=== PATIENT | male | born 1965 | race American Indian/Alaskan Native ===

== ENCOUNTER 2016-06-08 01:30 | Inpatient (IN) | payer MEDICARE ==
[2016-06-08] MEDS ORDERED: ZEMURON IV ONE ×2 (01:40→02:00)
[2016-06-08] MEDS ORDERED: KETALAR IV ONE (01:40)
[2016-06-08] MEDS ORDERED: ARTIFICIAL TEARS OPHTH OINT OU PRN (01:51)
[2016-06-08] MEDS ORDERED: VASELINE LIP THERAPY TP PRN (01:51)
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
[2016-06-08] MEDS ORDERED: KETALAR ONE (02:00)
[2016-06-08] MEDS ORDERED: APRESOLINE ONE (02:07)
[2016-06-08 02:09] LABS: Basophils % (Auto) 1.1 % (0.0-1.8); Eosinophils % (Auto) 1.4 % (0.0-4.3); Hematocrit 34.2 % (35.5-45.6); Mean Corpuscular HGB Conc 32 % (32-34); Mean Corpuscular Hemoglobin 29 pg (28-32); Mean Corpuscular Volume 91 fl (84-94); Platelet Count 174 K/mm3 (140-440); Red Blood Count 3.77 M/mm3 (3.65-5.03); White Blood Count 6.1 K/mm3 (4.5-11.0)
[2016-06-08] MEDS ORDERED: APRESOLINE IV ONE (02:16)
[2016-06-08 02:21] LABS: INR 1.1 (0.87-1.13); Partial Thromboplastin Time 25.6 Sec. (24.2-36.6)
[2016-06-08] MEDS ORDERED: NACL 0.9% 1000 ML 1,000 ML ONE (02:23)
[2016-06-08 02:31] LABS: Creatine Kinase MB 2.1 ng/mL (0.0-4.0)
[2016-06-08 02:33] LABS: Albumin 4.1 g/dL (3.9-5); Albumin/Globulin Ratio 1.1 %; BUN/Creatinine Ratio 4.95; Bilirubin,Total 0.4 mg/dL (0.1-1.2); Calcium 9.3 mg/dL (8.4-10.2); Chloride 99.2 mmol/L (98-107)
[2016-06-08 02:34] LABS: ISTAT Base Excess -3; ISTAT HCO3 26.4; ISTAT PCO2 78.8 (35-45); ISTAT PH 7.133 (7.35-7.45); ISTAT PO2 219 (80-105); ISTAT SO2 99; ISTAT TCO2 29
[2016-06-08] MEDS: DIPRIVAN 10 MG/ML 1,000 MG/100 ML BOTTLE IV SCH ×4 (02:35→15:12)
[2016-06-08 02:59] LABS: Potassium 5.1 mmol/L (3.6-5.0)
[2016-06-08] MEDS ORDERED: NACL 0.9% 1000 ML 1,000 ML IV ONE (02:59)
[2016-06-08] MEDS ORDERED: CARDENE DRIP 40 MG/200 ML 40 MG/200 ML BAG IV SCH (03:00)
--- NOTE | 2016-06-08 03:16 | XRay Report ---
FINAL REPORT PROCEDURE: XR CHEST 1V AP PORTABLE TECHNIQUE: Chest radiograph anteroposterior portable view. CPT 49286 HISTORY: ETT placement COMPARISON: No prior studies are available for comparison. FINDINGS: Heart: Mild enlargement although there is some magnification from portable technique. Mediastinum/Vessels: Slightly prominent sherry bilaterally are similar prior exam and may be due to prominent pulmonary arteries. Lungs/Pleural space: Moderate central venous congestion and probable diffuse moderate interstitial and airspace pulmonary edema suggesting fluid overload and or CHF. This is mostly new since prior exam. However asymmetric increased density in right lower lobe could be asymmetric airspace edema versus superimposed moderate right lower lobe infiltrate. This was present previously but has increased. Patchy density in left mid and lower lung may be asymmetric edema versus superimposed infiltrate and possible left pleural effusion. Changes in the left lung base were seen here on the prior exam as well. Bony thorax: No acute osseous abnormality. Life support devices: ET tube tip is about 4 centimeters above tracheal bifurcation. The distal aspect of the NG tube projects beyond GE junction below level of film. IMPRESSION: 1. ET tube tip is about 4 centimeters above tracheal bifurcation. 2. Probable moderate pulmonary edema, new from prior exam. 3. Asymmetric edema versus superimposed infiltrate in right lower lobe increased from prior exam. 4. Asymmetric edema versus patchy infiltrate in left mid and lower lung also increased from prior exam. Probable left pleural effusion noted. This may have been present previously as well.
[2016-06-08] MEDS ORDERED: VANCOMYCIN/NS 1 GM/250 ML 1 GM/250 ML BAG IV ONE (03:20)
--- NOTE | 2016-06-08 04:12 | History and Physical Report ---
History of Present Illness Date of examination: 06/08/16 History of present illness: 50-year-old man with a history of hypertension, end-stage renal disease on dialysis Monday, Monday, Monday comes emergency room with complaints of shortness of breath that started this morning. The patient was fouind to be in respiratory distress and intubated in the emergency room. Review of systems unobtainable. She was started on a Cardene drip for blood pressure uncontrolled PAST SURGICAL HISTORY: AV fistula, bowel surgery SOCIAL HISTORY: Denies alcohol, tobacco, drugs FAMILY HISTORY: Hypertension Medications and Allergies Allergies Allergy/AdvReac Type Severity Reaction Status Date / Time lisinopril Allergy Angioedema Verified 07/28/15 15:30 Home Medications Medication Instructions Recorded Confirmed Last Taken Type Cinacalcet [Sensipar] 30 mg PO QDAY 11/06/15 06/08/16 02/23/16 History Sevelamer Carbonate [Renvela] 800 mg PO AC 11/06/15 06/08/16 02/23/16 History Vit B Cplx #11/FA/C/Biot/Zn Ox 800 each PO DAILY 12/11/15 06/08/16 02/23/16 History [Dialyvite with Zinc Tablet] hydrALAZINE [Apresoline TAB] 100 mg PO TID #90 tab 12/17/15 06/08/16 02/23/16 Rx Aspirin [Aspirin BABY CHEW TAB] 81 mg PO QDAY #30 tab.chew 06/14/16 Unknown Rx Carvedilol [Coreg] 25 mg PO BID #60 tablet 06/14/16 Unknown Rx Doxazosin [Cardura] 4 mg PO BID #60 tablet 06/14/16 Unknown Rx NIFEdipine XL [Procardia Xl] 90 mg PO BID #60 tablet 06/14/16 Unknown Rx Valsartan [Diovan] 160 mg PO BID #60 tablet 06/14/16 Unknown Rx cloNIDine [Catapres] 0.1 mg PO Q8H #30 tablet 06/14/16 Unknown Rx Active Meds: Active Medications Hydrophilic Ointment (Vaseline Lip Therapy) 1 applic TP Q2HR PRN PRN Reason: Dry Lips Propofol (Diprivan 10 Mg/Ml) 1,000 mg in 100 mls @ 2.381 mls/hr IV TITR TREVER; 5 MCG/KG/MIN PRN Reason: Protocol Last Titration: 06/08/16 03:50 Dose: 25 mcg/kg/min, 11.907 mls/hr Nicardipine/Sodium Chloride (Cardene Drip 40 Mg/200 Ml) 40 mg in 200 mls @ 25 mls/hr IV TITR TREVER; 5 MG/HR PRN Reason: Protocol Last Titration: 06/08/16 03:43 Dose: 0 mg/hr, 0 mls/hr Sodium Chloride (Nacl 0.9% 1000 Ml) 1,000 mls @ 30 mls/hr IV BOLUS ONE Stop: 06/09/16 12:18 Last Admin: 06/08/16 03:00 Dose: 30 mls/hr Vancomycin HCl (Vancomycin/Ns 1 Gm/250 Ml) 1 gm in 250 mls @ 167.007 mls/hr IV ONCE ONE PRN Reason: Protocol Stop: 06/08/16 04:49 Last Admin: 06/08/16 03:35 Dose: 167.007 mls/hr Piperacillin Sod/Tazobactam Sod (Zosyn/Ns 3.375gm/50ml) 3.375 gm in 50 mls @ 100 mls/hr IV Q6HR TREVER Multi-Ingred Cream/Lotion/Oil/Oint (Artificial Tears Ophth Oint) 1 applic OU Q4HR PRN PRN Reason: Dry Eye(s) Exam - Physical Exam Narrative exam: Gen. appearance: Patient lying in bed, intubated and sedated HEENT: Normocephalic, atraumatic, pupils equally round and reactive to light, and able to do extraocular movement , and no sclericterus,. No JVD or thyromegaly or nodule,neck supple, no carotid bruit ,mucous membranes moist, no exudate or erythema Heart: S1, S2, regular rate and rhythm Lungs: Decreased breath sounds at bases bilaterally, breathing comfortable Abdomen: Positive bowel sounds, soft, nondistended, no organomegaly Extremity: No edema, cyanosis, clubbing Skin: No rash, nodules, warm, dry Neuro: Oriented 3, cranial nerves II-12 intact, speech is fluent, motor and sensory intact - Constitutional Vitals: Temp Pulse Resp BP Pulse Ox 63 22 94/45 95 06/08/16 04:00 06/08/16 04:00 06/08/16 04:00 06/08/16 04:00 Results - Labs CBC & Chem 7: 06/11/16 04:16 06/11/16 04:16 Labs: Abnormal lab results 06/08/16 06/08/16 06/08/16 Range/Units 02:01 02:01 02:01 Hgb 11.0 L (11.8-15.2) gm/dl Hct 34.2 L (35.5-45.6) % Lymph % (Auto) 39.3 H (13.4-35.0) % POC ABG pH (7.35-7.45) POC ABG pCO2 (35-45) POC ABG pO2 (80-105) Sodium 148 H (137-145) mmol/L Potassium 5.1 H (3.6-5.0) mmol/L Carbon Dioxide 21 L (22-30) mmol/L BUN 60 H (9-20) mg/dL Creatinine 12.1 H (0.8-1.5) mg/dL Lactic Acid 10.2 H* (0.7-2.0) mmol/L Total Creatine Kinase 518 H (55-170) units/L Troponin T 0.091 H (0.00-0.029) ng/mL NT-Pro-B Natriuret Pep (0-450) pg/mL 06/08/16 06/08/16 Range/Units 02:01 02:22 Hgb (11.8-15.2) gm/dl Hct (35.5-45.6) % Lymph % (Auto) (13.4-35.0) % POC ABG pH 7.133 L (7.35-7.45) POC ABG pCO2 78.8 H (35-45) POC ABG pO2 219 H (80-105) Sodium (137-145) mmol/L Potassium (3.6-5.0) mmol/L Carbon Dioxide (22-30) mmol/L BUN (9-20) mg/dL Creatinine (0.8-1.5) mg/dL Lactic Acid (0.7-2.0) mmol/L Total Creatine Kinase (55-170) units/L Troponin T (0.00-0.029) ng/mL NT-Pro-B Natriuret Pep 47157 H (0-450) pg/mL - Imaging and Cardiology EKG: image reviewed Chest x-ray: image reviewed Assessment and Plan Acute respiratory failure Fluid overload pneumonia Hypertension Abnormal cardiac enzymes End-stage renal disease on dialysis Admit to medicine Start IV Levaquin, Zosyn, first dose now, consult renal for dialysis Check cardiac enzymes, consult critical care, continue sedation with propofol Discontinue Cardene drip, systolic blood pressure now in the 90s Continue appropriate outpatient medication, start DVT prophylaxis with SCD
[2016-06-08] MEDS ORDERED: TYLENOL PO PRN (04:17)
[2016-06-08] MEDS ORDERED: ZOFRAN IV PRN (04:17)
[2016-06-08] MEDS ORDERED: DULCOLAX PR PRN (04:17)
[2016-06-08] MEDS ORDERED: ALUM-MAG HYDROX-SIMETH 200-200-20MG/5ML PO PRN (04:17)
[2016-06-08] MEDS ORDERED: LOVENOX SUB-Q ONE (04:20)
[2016-06-08] MEDS ORDERED: LEVAQUIN 750MG/150ML 750 MG/150 ML BAG IV ONE (04:30)
[2016-06-08 05:31] LABS: Creatine Kinase MB 2.8 ng/mL (0.0-4.0)
[2016-06-08] MEDS ORDERED: ZOSYN/NS 3.375GM/50ML 3.375 GM/50 ML BAG IV SCH ×2 (06:00)
[2016-06-08] MEDS ORDERED: ZOSYN/NS 2.25 GM/50ML 2.25 GM/50 ML BAG IV SCH (06:00)
[2016-06-08] MEDS ORDERED: SUBLIMAZE ONE (06:07)
[2016-06-08] MEDS ORDERED: SUBLIMAZE IV ONE (06:10)
--- NOTE | 2016-06-08 06:31 | Admit Criteria Form ---
Admission Criteria Documentation: RENAL FAILURE, CHRONIC Clinical Indications for Admission to Inpatient Care (Place 'X' for any and all applicable criteria): Admission is indicated for ANY ONE of the following (1)(2)(3)(4)(5): [ x]I. Inpatient admission required rather than observation care (Use Renal Failure, Chronic: Observation Care Criteria as appropriate) because of ANY ONE of the following: [x ]a) Volume overload or uremic symptoms (eg, clinically significant pulmonary edema, hypertension, pericarditis, acidosis) too severe for, or not responsive (eg, for over 24 hours) to emergency department or observation care dialysis or treatment regimen (11) [ ]b) Hemodynamic instability that is severe or persistent [ ]c) Respiratory distress that is severe or persistent (11) [ ]d) Clinically significant electrolyte abnormality that requires inpatient care (eg,hyperkalemia with severe ECG findings)[B] [ ]e) Supplement O2 or respiratory therapy for over 24hrs that is performable only in acute inpatient setting [ ]f) Continuous IV infusion of anticoagulation, platelet inhibitor, vasoactive, or Antiarrhythmic medication (15), [ ]g) Pulmonary artery catheter monitoring [ ]h) Temporary pacemaker placement [ ]i) Emergent pericardiocentesis [ x]j) Other condition, treatment or monitoring requiring inpatient admission [ ]II. Unexplained syncope [A] [ ]III. Recurrent seizures [ ]IV. Severe infections not treatable in outpatient setting (eg, peritonitis)(9 ) [ ]V. Cardiac arrhythmias of immediate concern [ ]. Encephalopathy [ ]VII.Bleeding abnormalities (eg, platelet dysfunction) with active (eg, gastrointestinal) bleeding Extended stay beyond goal length of stay may be needed for (3)(4)(35)(36): [ ]a) Continuing uremic complications [ ]b) Comorbidities or complications The original [employer] content created by [employer] has been revised. The portions of the content which have been revised are identified through the use of italic text or in bold, and [employer] has neither reviewed nor approved the modified material. All other unmodified content is copyright [employer]. Please see references footnoted in the original [employer] edition 2016 Admission Criteria Met: Yes
[2016-06-08 06:57] LABS: ISTAT Base Excess 1; ISTAT HCO3 26.1; ISTAT PCO2 45.4 (35-45); ISTAT PH 7.368 (7.35-7.45); ISTAT PO2 55 (80-105); ISTAT SO2 87; ISTAT TCO2 27
[2016-06-08 09:18] LABS: ISTAT Base Excess 0; ISTAT HCO3 26.2; ISTAT PCO2 48.4 (35-45); ISTAT PH 7.342 (7.35-7.45); ISTAT PO2 69 (80-105); ISTAT SO2 92; ISTAT TCO2 28
[2016-06-08] MEDS: PEPCID IV SCH (09:50)
[2016-06-08] MEDS: LOVENOX SUB-Q SCH (09:50)
[2016-06-08 10:51] LABS: Creatine Kinase MB 4.8 ng/mL (0.0-4.0)
--- NOTE | 2016-06-08 11:41 | Progress Note ---
Assessment and Plan Assessment and plan: --Acute hypoxic respiratory failure Secondary to fluid overload, continue ventilatory support Hemo-dialysis, nebulizers as needed --Left-sided pneumonia on chest x-ray Empiric antibiotics, follow cultures, supportive care --End-stage renal disease on hemodialysis Nephrology following,HD per schedule --Non-ST elevation PA/positive troponins could be nonspecific secondary end- stage renal disease However NSTEMI need to be ruled out Serial cardiac enzymes, add aspirin, cardiology evaluation, echocardiogram for left ventricular function ejection fraction --Lactic acidosis, secondary to sepsis Lactic acid levels trending down, continue antibiotics follow cultures --Malignant hypertension ; at the time of admission Now well-controlled, continue current antihypertensive medications --DVT prophylaxis With heparin We'll closely monitor the patient and adjust the management as needed Plan of care discussed with the patient's nurse, medical records reviewed Critical care time 31 minutes The high probability of a clinically significant, sudden or life threatening deterioration of the [respiratory, renal and cardiovascular] system(s) required my full and direct attention, intervention and personal management. The aggregate critical care time was [31] minutes. This time is in addition to time spent performing reported procedures but includes the following: [x] Data Review and interpretation [x] Patient assessment and monitoring of vital signs [x] Documentation [x] Medication orders and management History Interval history: Patient seen and evaluated in the ICU this morning medical records reviewed Patient was admitted early this morning with acute respiratory failure, intubated on ventilator support Patient intubated and sedated noncommunicative No new events reported by the nursing staff Hospitalist Physical - Constitutional Vitals: Temp Pulse Resp BP Pulse Ox 97.4 F L 65 28 H 131/74 96 06/08/16 08:00 06/08/16 08:51 06/08/16 08:50 06/08/16 08:51 06/08/16 08:51 General appearance: Present: no acute distress, well-nourished, other ( intubated and sedated) - EENT Eyes: Present: PERRL, EOM intact - Neck Neck: Present: supple, normal ROM - Respiratory Respiratory effort: normal Respiratory: bilateral: diminished, rales, negative: rhonchi - Cardiovascular Rhythm: regular Heart Sounds: Present: S1 & S2 - Extremities Extremities: no ischemia, pulses intact, pulses symmetrical Peripheral Pulses: within normal limits - Abdominal General gastrointestinal: soft, non-tender, non-distended, normal bowel sounds - Integumentary Integumentary: Present: clear, warm - Psychiatric Psychiatric: other (intubated and sedated) - Neurologic Neurologic: other (intubated and sedated) Results - Labs CBC & Chem 7: 06/09/16 04:00 06/09/16 04:00 Labs: Laboratory Last Values WBC 6.1 K/mm3 (4.5-11.0) 06/08/16 02:01 RBC 3.77 M/mm3 (3.65-5.03) 06/08/16 02:01 Hgb 11.0 gm/dl (11.8-15.2) L 06/08/16 02:01 Hct 34.2 % (35.5-45.6) L 06/08/16 02:01 MCV 91 fl (84-94) 06/08/16 02:01 MCH 29 pg (28-32) 06/08/16 02:01 MCHC 32 % (32-34) 06/08/16 02:01 RDW 15.0 % (13.2-15.2) 06/08/16 02:01 Plt Count 174 K/mm3 (140-440) 06/08/16 02:01 Lymph % (Auto) 39.3 % (13.4-35.0) H 06/08/16 02:01 [place] % (Auto) 7.3 % (0.0-7.3) 06/08/16 02:01 Eos % (Auto) 1.4 % (0.0-4.3) 06/08/16 02:01 Baso % (Auto) 1.1 % (0.0-1.8) 06/08/16 02:01 Lymph # 2.4 K/mm3 (1.2-5.4) 06/08/16 02:01 [place] # 0.4 K/mm3 (0.0-0.8) 06/08/16 02:01 Eos # 0.1 K/mm3 (0.0-0.4) 06/08/16 02:01 Baso # 0.1 K/mm3 (0.0-0.1) 06/08/16 02:01 Seg Neutrophils % 50.9 % (40.0-70.0) 06/08/16 02:01 Seg Neutrophils # 3.1 K/mm3 (1.8-7.7) 06/08/16 02:01 PT 14.1 Sec. (12.2-14.9) 06/08/16 02:01 INR 1.10 (0.87-1.13) 06/08/16 02:01 APTT 25.6 Sec. (24.2-36.6) 06/08/16 02:01 D-Dimer 1494.82 ng/mlDDU (0-234) H 06/08/16 04:35 POC ABG pH 7.342 (7.35-7.45) L 06/08/16 08:51 POC ABG pCO2 48.4 (35-45) H 06/08/16 08:51 POC ABG pO2 69 (80-105) L 06/08/16 08:51 POC ABG HCO3 26.2 06/08/16 08:51 POC ABG Total CO2 28 06/08/16 08:51 POC ABG O2 Sat 92 06/08/16 08:51 POC ABG Base Excess 0 06/08/16 08:51 FiO2 60 % 06/08/16 08:51 Sodium 148 mmol/L (137-145) H 06/08/16 02:01 Potassium 5.1 mmol/L (3.6-5.0) H 06/08/16 02:01 Chloride 99.2 mmol/L (98-107) 06/08/16 02:01 Carbon Dioxide 21 mmol/L (22-30) L 06/08/16 02:01 Anion Gap 33 mmol/L 06/08/16 02:01 BUN 60 mg/dL (9-20) H 06/08/16 02:01 Creatinine 12.1 mg/dL (0.8-1.5) H 06/08/16 02:01 Estimated GFR 5 ml/min 06/08/16 02:01 BUN/Creatinine Ratio 4.95 % 06/08/16 02:01 Glucose 94 mg/dL (75-100) 06/08/16 02:01 Lactic Acid 0.6 mmol/L (0.7-2.0) L 06/08/16 05:45 Calcium 9.3 mg/dL (8.4-10.2) 06/08/16 02:01 Total Bilirubin 0.4 mg/dL (0.1-1.2) 06/08/16 02:01 AST 25 units/L (5-40) 06/08/16 02:01 ALT 18 units/L (7-56) 06/08/16 02:01 Alkaline Phosphatase 61 units/L (35-129) 06/08/16 02:01 Total Creatine Kinase 418 units/L (55-170) H 06/08/16 10:22 CK-MB (CK-2) 4.8 ng/mL (0.0-4.0) H 06/08/16 10:22 CK-MB (CK-2) Rel Index 1.1 (0-4) 06/08/16 10:22 Troponin T 0.143 ng/mL (0.00-0.029) H* D 06/08/16 10:22 NT-Pro-B Natriuret Pep 91005 pg/mL (0-450) H 06/08/16 02:01 Total Protein 8.0 g/dL (6.3-8.2) 06/08/16 02:01 Albumin 4.1 g/dL (3.9-5) 06/08/16 02:01 Albumin/Globulin Ratio 1.1 % 06/08/16 02:01 Triglycerides 45 mg/dL (2-149) 06/08/16 04:35 Cholesterol 148 mg/dL (50-199) 06/08/16 04:35 LDL Cholesterol Direct 49 mg/dL (50-130) L 06/08/16 04:35 HDL Cholesterol 90 mg/dL (40-59) H 06/08/16 04:35 Cholesterol/HDL Ratio 1.64 % 06/08/16 04:35
--- NOTE | 2016-06-08 11:59 | Consultation ---
History of Present Illness Consult date: 06/08/16 Consult reason: elevated troponin History of present illness: he patient is a 49-year-old man who has end-stage renal disease on hemodialysis. He also has chronic severe hypertension. A recent thallium stress test was negative. A recent echocardiogram demonstrated normal left ventricular systolic function with ejection fraction 55%, with at least moderate concentric left ventricular hypertrophy was noted. He presents at this time with shortness of breath thought secondary to pulmonary edema and possible infiltrates. He suffered respiratory failure in the emergency room, requiring intubation. Cardiac consultation requested for chronic elevated troponin likely secondary to renal disease. Creatinine of 12.1. He has a normal CK/MB and normal relative index. He has a creatine kinase of 518 consistent with rhabdomyolysis. His EKG shows a normal sinus rhythm with left ventricular hypertrophy and repolarization abnormalities of LVH. Medications and Allergies Allergies Allergy/AdvReac Type Severity Reaction Status Date / Time lisinopril Allergy Angioedema Verified 07/28/15 15:30 Home Medications Medication Instructions Recorded Confirmed Last Taken Type Cinacalcet [Sensipar] 30 mg PO QDAY 11/06/15 02/24/16 02/23/16 History Sevelamer Carbonate [Renvela] 800 mg PO AC 11/06/15 02/24/16 02/23/16 History Vit B Cplx #11/FA/C/Biot/Zn Ox 800 each PO DAILY 12/11/15 02/24/16 02/23/16 History [Dialyvite with Zinc Tablet] Carvedilol [Coreg] 25 mg PO BID #60 tablet 12/17/15 02/24/16 02/23/16 Rx hydrALAZINE [Apresoline TAB] 100 mg PO TID #90 tab 12/17/15 02/24/16 02/23/16 Rx NIFEdipine XL [Procardia Xl] 90 mg PO QDAY #30 tablet 02/25/16 Unknown Rx Active Meds: Active Medications Acetaminophen (Tylenol) 650 mg PO Q6H PRN PRN Reason: Pain Al Hydrox/Mg Hydrox/Simethicone (Alum-Mag Hydrox-Simeth [phone]/5ml) 30 ml PO Q4H PRN PRN Reason: Indigestion Aspirin (Baby Aspirin) 81 mg PO QDAY [facility] Bisacodyl (Dulcolax) 10 mg [place] QDAY PRN PRN Reason: constipation unrelieved by MOM Enoxaparin Sodium (Lovenox) 30 mg SUB-Q DAILY [facility] Last Admin: 06/08/16 09:50 Dose: 30 mg Famotidine (Pepcid) 20 mg IV DAILY [facility] Last Admin: 06/08/16 09:50 Dose: 20 mg Hydrophilic Ointment (Vaseline Lip Therapy) 1 applic TP Q2HR PRN PRN Reason: Dry Lips Propofol (Diprivan 10 Mg/Ml) 1,000 mg in 100 mls @ 2.381 mls/hr IV TITR TREVER; 5 MCG/KG/MIN PRN Reason: Protocol Last Admin: 06/08/16 07:30 Dose: 40 mcg/kg/min, 19.051 mls/hr Sodium Chloride (Nacl 0.9% 1000 Ml) 1,000 mls @ 30 mls/hr IV BOLUS ONE Stop: 06/09/16 12:18 Last Admin: 06/08/16 03:00 Dose: 30 mls/hr Levofloxacin/Dextrose (Levaquin 500mg/100ml) 500 mg in 100 mls @ 100 mls/hr IV Q48H [facility] Piperacillin Sod/Tazobactam Sod (Zosyn/Ns 2.25 Gm/50ml) 2.25 gm in 50 mls @ 100 mls/hr IV Q8HR [facility] Last Admin: 06/08/16 06:18 Dose: 100 mls/hr Multi-Ingred Cream/Lotion/Oil/Oint (Artificial Tears Ophth Oint) 1 applic OU Q4HR PRN PRN Reason: Dry Eye(s) Ondansetron HCl (Zofran) 4 mg IV Q8H PRN PRN Reason: N/V unrelieved by Reglan Physical Examination Vital Signs Resp 30 H 06/08/16 01:35 General appearance: other (intubated on the vent) Cardiac: Positive: Reg Rate and Rhythm Results 06/08/16 02:01 06/08/16 02:01 Cardiac Enzymes 06/08/16 06/08/16 06/08/16 Range/Units 04:35 04:35 05:45 D-Dimer 1494.82 H (0-234) ng/mlDDU POC ABG pH (7.35-7.45) POC ABG pCO2 (35-45) POC ABG pO2 (80-105) POC ABG HCO3 POC ABG Total CO2 POC ABG O2 Sat POC ABG Base Excess FiO2 % Lactic Acid 0.6 L (0.7-2.0) mmol/L Total Creatine Kinase 419 H (55-170) units/L CK-MB (CK-2) 2.8 (0.0-4.0) ng/mL CK-MB (CK-2) Rel Index 0.6 (0-4) Troponin T 0.118 H* D (0.00-0.029) ng/mL Triglycerides 45 (2-149) mg/dL Cholesterol 148 (50-199) mg/dL LDL Cholesterol Direct 49 L (50-130) mg/dL HDL Cholesterol 90 H (40-59) mg/dL Cholesterol/HDL Ratio 1.64 % 06/08/16 06/08/16 06/08/16 Range/Units 06:20 07:41 08:51 D-Dimer (0-234) ng/mlDDU POC ABG pH 7.368 7.342 L (7.35-7.45) POC ABG pCO2 45.4 H 48.4 H (35-45) POC ABG pO2 55 L 69 L (80-105) POC ABG HCO3 26.1 26.2 POC ABG Total CO2 27 28 POC ABG O2 Sat 87 92 POC ABG Base Excess 1 0 FiO2 60 60 % Lactic Acid (0.7-2.0) mmol/L Total Creatine Kinase (55-170) units/L CK-MB (CK-2) (0.0-4.0) ng/mL CK-MB (CK-2) Rel Index (0-4) Troponin T 0.118 H* (0.00-0.029) ng/mL Triglycerides (2-149) mg/dL Cholesterol (50-199) mg/dL LDL Cholesterol Direct (50-130) mg/dL HDL Cholesterol (40-59) mg/dL Cholesterol/HDL Ratio % 06/08/16 Range/Units 10:22 D-Dimer (0-234) ng/mlDDU POC ABG pH (7.35-7.45) POC ABG pCO2 (35-45) POC ABG pO2 (80-105) POC ABG HCO3 POC ABG Total CO2 POC ABG O2 Sat POC ABG Base Excess FiO2 % Lactic Acid (0.7-2.0) mmol/L Total Creatine Kinase 418 H (55-170) units/L CK-MB (CK-2) 4.8 H (0.0-4.0) ng/mL CK-MB (CK-2) Rel Index 1.1 (0-4) Troponin T 0.143 H* D (0.00-0.029) ng/mL Triglycerides (2-149) mg/dL Cholesterol (50-199) mg/dL LDL Cholesterol Direct (50-130) mg/dL HDL Cholesterol (40-59) mg/dL Cholesterol/HDL Ratio % Lipids 06/08/16 Range/Units 04:35 Triglycerides 45 (2-149) mg/dL Cholesterol 148 (50-199) mg/dL HDL Cholesterol 90 H (40-59) mg/dL Cholesterol/HDL Ratio 1.64 % Assessment and Plan Acute respiratory failure secondary to volume overload and pulmonary edema currently intubated ESRD on dialysis Chronic elevated troponin secondary to renal disease Hypertension Thallium stress test 10/2015 was negative. Echocardiogram 02/2016 demonstrated normal left ventricular systolic function with ejection fraction 55%, at least moderate concentric left ventricular hypertrophy was noted.
--- NOTE | 2016-06-08 12:07 | Consultation ---
History of Present Illness - Reason for Consult Consult date: 06/08/16 end stage renal disease, hyperkalemia - History of Present Illness Patient is a 50-year-old AAM with history significant for Hypertension, ESRD on hemodialysis (MWF) presented to the emergency room with one day h/o shortness of breath. Unable to obtain any history from patient and no family members at the bedside. The patient was in respiratory distress and intubated in the emergency room. He was started on Cardene drip for uncontrolled blood pressure. Past History Past Medical History: dialysis, ESRD, hypertension Medications and Allergies Allergies Allergy/AdvReac Type Severity Reaction Status Date / Time lisinopril Allergy Angioedema Verified 07/28/15 15:30 Home Medications Medication Instructions Recorded Confirmed Last Taken Type Cinacalcet [Sensipar] 30 mg PO QDAY 11/06/15 06/08/16 02/23/16 History Sevelamer Carbonate [Renvela] 800 mg PO AC 11/06/15 06/08/16 02/23/16 History Vit B Cplx #11/FA/C/Biot/Zn Ox 800 each PO DAILY 12/11/15 06/08/16 02/23/16 History [Dialyvite with Zinc Tablet] Carvedilol [Coreg] 25 mg PO BID #60 tablet 12/17/15 06/08/16 02/23/16 Rx hydrALAZINE [Apresoline TAB] 100 mg PO TID #90 tab 12/17/15 06/08/16 02/23/16 Rx NIFEdipine XL [Procardia Xl] 90 mg PO QDAY #30 tablet 02/25/16 06/08/16 Unknown Rx Active Meds: Active Medications Acetaminophen (Tylenol) 650 mg PO Q6H PRN PRN Reason: Pain Al Hydrox/Mg Hydrox/Simethicone (Alum-Mag Hydrox-Simeth [phone]/5ml) 30 ml PO Q4H PRN PRN Reason: Indigestion Aspirin (Baby Aspirin) 81 mg PO QDAY [facility] Bisacodyl (Dulcolax) 10 mg [place] QDAY PRN PRN Reason: constipation unrelieved by MOM Enoxaparin Sodium (Lovenox) 30 mg SUB-Q DAILY [facility] Last Admin: 06/08/16 09:50 Dose: 30 mg Famotidine (Pepcid) 20 mg IV DAILY [facility] Last Admin: 06/08/16 09:50 Dose: 20 mg Hydrophilic Ointment (Vaseline Lip Therapy) 1 applic TP Q2HR PRN PRN Reason: Dry Lips Propofol (Diprivan 10 Mg/Ml) 1,000 mg in 100 mls @ 2.381 mls/hr IV TITR TREVER; 5 MCG/KG/MIN PRN Reason: Protocol Last Admin: 06/08/16 07:30 Dose: 40 mcg/kg/min, 19.051 mls/hr Sodium Chloride (Nacl 0.9% 1000 Ml) 1,000 mls @ 30 mls/hr IV BOLUS ONE Stop: 06/09/16 12:18 Last Admin: 06/08/16 03:00 Dose: 30 mls/hr Levofloxacin/Dextrose (Levaquin 500mg/100ml) 500 mg in 100 mls @ 100 mls/hr IV Q48H [facility] Piperacillin Sod/Tazobactam Sod (Zosyn/Ns 2.25 Gm/50ml) 2.25 gm in 50 mls @ 100 mls/hr IV Q8HR [facility] Last Admin: 06/08/16 06:18 Dose: 100 mls/hr Multi-Ingred Cream/Lotion/Oil/Oint (Artificial Tears Ophth Oint) 1 applic OU Q4HR PRN PRN Reason: Dry Eye(s) Ondansetron HCl (Zofran) 4 mg IV Q8H PRN PRN Reason: N/V unrelieved by Reglan Review of Systems ROS unobtainable: due to mental status Exam - Vital Signs Vital signs: Vital Signs Resp 30 H 06/08/16 01:35 - General Appearance General appearance: well-developed, well-nourished, appears stated age, intubated EENT: PERRL, hearing intact Neck: Present: neck supple, trachea midline Respiratory: Other (coarse breath sounds) Heart: regular, S1S2, no murmurs Gastrointestinal: Present: normoactive bowel sounds. Absent: tenderness, distended Integumentary: no rash Neurologic: other (responds to questions) Musculoskeletal: Present: other (no edema, right FA AVF) Results - Lab Results 06/08/16 02:01 06/08/16 02:01 Most recent lab results Calcium 9.3 mg/dL (8.4-10.2) 06/08/16 02:01 Assessment and Plan - Patient Problems (1) Hyperkalemia Current Visit: Yes Status: Acute Plan to address problem: Hyperkalemia in the setting of ESRD. Hemodialysis today. (2) End stage renal disease on dialysis Current Visit: Yes Status: Chronic Plan to address problem: Hemodialysis planned for today. (3) Pulmonary edema Current Visit: Yes Status: Acute Qualifiers: Chronicity: acute Qualified Code(s): J81.0 - Acute pulmonary edema Plan to address problem: To remove about 4 Lts with hemodialysis as tolerated. (4) Respiratory failure Current Visit: Yes Status: Acute Qualifiers: Chronicity: acute Respiratory failure complication: hypoxia Qualified Code(s): J96.01 - Acute respiratory failure with hypoxia Plan to address problem: On the vent. (5) Hypertension Current Visit: No Status: Chronic Qualifiers: Hypertension type: H Plan to address problem: Monitor BP.
[2016-06-08] MEDS ORDERED: NACL 0.9% 100 ML IV PRN (12:10)
[2016-06-08] MEDS: ATIVAN IV PRN ×2 (13:47→23:37)
--- NOTE | 2016-06-08 14:08 | Consultation ---
History of Present Illness Consult date: 06/08/16 Requesting physician: JOSUE MOCK Reason for consult: hypoxemia History of present illness: 50 y/o male admitted acute hypoxic respiratory failure. Has ESRD and goes to HD on MWF. Currently intubated and sedated. Nephew at bedside. Past History Past Medical History: ESRD, hypertension Past Surgical History: Other (HD access) Social history: other (unable to obtain) Medications and Allergies Allergies Allergy/AdvReac Type Severity Reaction Status Date / Time lisinopril Allergy Angioedema Verified 07/28/15 15:30 Home Medications Medication Instructions Recorded Confirmed Last Taken Type Cinacalcet [Sensipar] 30 mg PO QDAY 11/06/15 02/24/16 02/23/16 History Sevelamer Carbonate [Renvela] 800 mg PO AC 11/06/15 02/24/16 02/23/16 History Vit B Cplx #11/FA/C/Biot/Zn Ox 800 each PO DAILY 12/11/15 02/24/16 02/23/16 History [Dialyvite with Zinc Tablet] Carvedilol [Coreg] 25 mg PO BID #60 tablet 12/17/15 02/24/16 02/23/16 Rx hydrALAZINE [Apresoline TAB] 100 mg PO TID #90 tab 12/17/15 02/24/16 02/23/16 Rx NIFEdipine XL [Procardia Xl] 90 mg PO QDAY #30 tablet 02/25/16 Unknown Rx Active Meds: Active Medications Acetaminophen (Tylenol) 650 mg PO Q6H PRN PRN Reason: Pain Al Hydrox/Mg Hydrox/Simethicone (Alum-Mag Hydrox-Simeth [phone]/5ml) 30 ml PO Q4H PRN PRN Reason: Indigestion Aspirin (Baby Aspirin) 81 mg PO QDAY [facility] Bisacodyl (Dulcolax) 10 mg [place] QDAY PRN PRN Reason: constipation unrelieved by MOM Enoxaparin Sodium (Lovenox) 30 mg SUB-Q DAILY [facility] Last Admin: 06/08/16 09:50 Dose: 30 mg Famotidine (Pepcid) 20 mg IV DAILY [facility] Last Admin: 06/08/16 09:50 Dose: 20 mg Hydrophilic Ointment (Vaseline Lip Therapy) 1 applic TP Q2HR PRN PRN Reason: Dry Lips Propofol (Diprivan 10 Mg/Ml) 1,000 mg in 100 mls @ 2.381 mls/hr IV TITR TREVER; 5 MCG/KG/MIN PRN Reason: Protocol Last Admin: 06/08/16 07:30 Dose: 40 mcg/kg/min, 19.051 mls/hr Sodium Chloride (Nacl 0.9% 1000 Ml) 1,000 mls @ 30 mls/hr IV BOLUS ONE Stop: 06/09/16 12:18 Last Admin: 06/08/16 03:00 Dose: 30 mls/hr Sodium Chloride (Nacl 0.9%) 100 mls @ 999 mls/hr IV XIMENA PRN PRN Reason: Hypotension Lorazepam (Ativan) 2 mg IV Q4H PRN PRN Reason: Agitation Multi-Ingred Cream/Lotion/Oil/Oint (Artificial Tears Ophth Oint) 1 applic OU Q4HR PRN PRN Reason: Dry Eye(s) Ondansetron HCl (Zofran) 4 mg IV Q8H PRN PRN Reason: N/V unrelieved by Reglan Review of Systems ROS unobtainable: due to endotracheal tube, due to mental status Physical Examination Vital signs: Vital Signs Resp 30 H 06/08/16 01:35 General appearance: no acute distress, asleep ENT: other (orally intubated) Neck: supple Ascultation: Bilateral: rales, rhonchi Percussion: Bilateral: not dull Results - Laboratory Findings CBC and BMP: 06/08/16 02:01 06/08/16 02:01 ABG POC ABG pH 7.342 (7.35-7.45) L 06/08/16 08:51 POC ABG pCO2 48.4 (35-45) H 06/08/16 08:51 POC ABG pO2 69 (80-105) L 06/08/16 08:51 POC ABG HCO3 26.2 06/08/16 08:51 POC ABG Total CO2 28 06/08/16 08:51 POC ABG O2 Sat 92 06/08/16 08:51 PT/INR, D-dimer PT 14.1 Sec. (12.2-14.9) 06/08/16 02:01 INR 1.10 (0.87-1.13) 06/08/16 02:01 D-Dimer 1494.82 ng/mlDDU (0-234) H 06/08/16 04:35 Abnormal lab findings: Abnormal Labs 06/08/16 06/08/16 06/08/16 04:35 04:35 05:45 D-Dimer 1494.82 H POC ABG pH POC ABG pCO2 POC ABG pO2 Lactic Acid 0.6 L Total Creatine Kinase 419 H CK-MB (CK-2) Troponin T 0.118 H* D LDL Cholesterol Direct 49 L HDL Cholesterol 90 H 06/08/16 06/08/16 06/08/16 06:20 07:41 08:51 D-Dimer POC ABG pH 7.342 L POC ABG pCO2 45.4 H 48.4 H POC ABG pO2 55 L 69 L Lactic Acid Total Creatine Kinase CK-MB (CK-2) Troponin T 0.118 H* LDL Cholesterol Direct HDL Cholesterol 06/08/16 10:22 D-Dimer POC ABG pH POC ABG pCO2 POC ABG pO2 Lactic Acid Total Creatine Kinase 418 H CK-MB (CK-2) 4.8 H Troponin T 0.143 H* D LDL Cholesterol Direct HDL Cholesterol - Diagnostic Findings Chest x-ray: image reviewed (bilateral alveolar infiltrates) Assessment and Plan 50 y/o male with acute hypoxic respiratory failure most likely secondary to pulmonary edema. 1. Continue PEEP at 10 and FIO2 at 60%. Repeat ABG tonight and AM 2. Follow up renal recs. Should have HD today. 3. Sedation for RASS of 0 or rubalcava of 2 4. BP control with afterload reduction CCT 31 minutes.
[2016-06-08] MEDS: APRESOLINE IV PRN (22:10)
[2016-06-09] MEDS: DIPRIVAN 10 MG/ML 1,000 MG/100 ML BOTTLE IV SCH ×2 (02:35→08:09)
[2016-06-09 04:30] LABS: Basophils % (Auto) 0.3 % (0.0-1.8); Eosinophils % (Auto) 0.4 % (0.0-4.3); Hematocrit 24.3 % (35.5-45.6); Hemoglobin 8.2 gm/dl (11.8-15.2); Mean Corpuscular HGB Conc 34 % (32-34); Mean Corpuscular Hemoglobin 29 pg (28-32); Mean Corpuscular Volume 87 fl (84-94); Platelet Count 111 K/mm3 (140-440); Red Cell Distribution Width 14.7 % (13.2-15.2); White Blood Count 7.9 K/mm3 (4.5-11.0)
[2016-06-09] MEDS: APRESOLINE IV PRN ×3 (04:43→16:39)
[2016-06-09 04:48] LABS: Alanine Aminotransferase 44 units/L (7-56); Albumin/Globulin Ratio 0.9 %; Alkaline Phosphatase 38 units/L (35-129); Anion Gap 22 mmol/L; BUN/Creatinine Ratio 4.66; Bilirubin,Total 0.4 mg/dL (0.1-1.2); Blood Urea Nitrogen 42 mg/dL (9-20); Calcium 8.1 mg/dL (8.4-10.2); Carbon Dioxide 27 mmol/L (22-30); Chloride 100.8 mmol/L (98-107); Glucose 88 mg/dL (75-100); Magnesium 1.8 mg/dL (1.7-2.3); Phosphorous 5.9 mg/dL (2.5-4.5); Potassium 4.4 mmol/L (3.6-5.0); Sodium 145 mmol/L (137-145); Total Protein 6.2 g/dL (6.3-8.2)
[2016-06-09 04:49] LABS: Bilirubin,Direct < 0.2 mg/dL (0-0.2); Bilirubin,Indirect 0.2 mg/dL
[2016-06-09 05:23] LABS: ISTAT Base Excess 9; ISTAT HCO3 32.4; ISTAT PCO2 41.1 (35-45); ISTAT PH 7.504 (7.35-7.45); ISTAT PO2 259 (80-105); ISTAT SO2 100; ISTAT TCO2 34
[2016-06-09] MEDS: ATIVAN IV PRN (05:36)
--- NOTE | 2016-06-09 06:50 | Progress Note ---
Assessment and Plan - Patient Problems (1) Hyperkalemia Current Visit: Yes Status: Acute Plan to address problem: Hyperkalemia in the setting of ESRD. Improved with Hemodialysis. (2) End stage renal disease on dialysis Current Visit: Yes Status: Chronic Plan to address problem: Continue Hemodialysis on MWFs. (3) Pulmonary edema Current Visit: Yes Status: Acute Qualifiers: Chronicity: acute Qualified Code(s): J81.0 - Acute pulmonary edema Plan to address problem: Improved with fluid removal with hemodialysis. (4) Respiratory failure Current Visit: Yes Status: Acute Qualifiers: Chronicity: acute Respiratory failure complication: hypoxia Qualified Code(s): J96.01 - Acute respiratory failure with hypoxia Plan to address problem: On the vent. (5) Hypertension Current Visit: No Status: Chronic Qualifiers: Hypertension type: H Plan to address problem: BP is fair. Subjective Date of service: 06/09/16 Interval history: Patient remain on the vent. Objective - Vital Signs Vital signs: Vital Signs - 12hr 06/08/16 06/08/16 06/08/16 19:00 19:15 19:30 Temperature Pulse Rate 61 63 63 Pulse Rate [ From Monitor] Respiratory 17 22 Rate Respiratory Rate [ Generalized] Blood Pressure 161/101 155/97 152/96 O2 Sat by Pulse 100 100 Oximetry O2 Sat by Pulse Oximetry [ Anterior Bilateral] 06/08/16 06/08/16 06/08/16 19:45 20:00 20:15 Temperature 98.1 F Pulse Rate 64 63 61 Pulse Rate [ From Monitor] Respiratory 17 Rate Respiratory Rate [ Generalized] Blood Pressure 152/96 92/55 122/81 O2 Sat by Pulse 100 Oximetry O2 Sat by Pulse Oximetry [ Anterior Bilateral] 06/08/16 06/08/16 06/08/16 20:30 20:45 21:00 Temperature 98.1 F Pulse Rate 62 62 63 Pulse Rate [ From Monitor] Respiratory 22 22 22 Rate Respiratory Rate [ Generalized] Blood Pressure 134/91 134/91 141/93 O2 Sat by Pulse 100 Oximetry O2 Sat by Pulse 100 Oximetry [ Anterior Bilateral] 06/08/16 06/08/16 06/08/16 21:30 21:56 22:00 Temperature Pulse Rate 65 65 66 Pulse Rate [ 66 From Monitor] Respiratory 22 22 Rate Respiratory 22 Rate [ Generalized] Blood Pressure 169/103 205/110 O2 Sat by Pulse 100 100 Oximetry O2 Sat by Pulse Oximetry [ Anterior Bilateral] 06/08/16 06/08/16 06/08/16 22:10 22:26 22:30 Temperature Pulse Rate 66 67 67 Pulse Rate [ From Monitor] Respiratory 8 L Rate Respiratory Rate [ Generalized] Blood Pressure 197/109 193/105 193/105 O2 Sat by Pulse 100 100 Oximetry O2 Sat by Pulse Oximetry [ Anterior Bilateral] 06/08/16 06/08/16 06/09/16 23:00 23:30 00:00 Temperature 99.8 F H Pulse Rate 68 70 73 Pulse Rate [ From Monitor] Respiratory 21 22 11 L Rate Respiratory Rate [ Generalized] Blood Pressure 169/95 181/97 158/93 O2 Sat by Pulse 100 100 100 Oximetry O2 Sat by Pulse Oximetry [ Anterior Bilateral] 06/09/16 06/09/16 06/09/16 00:07 00:30 01:00 Temperature Pulse Rate 73 73 73 Pulse Rate [ From Monitor] Respiratory 22 22 Rate Respiratory Rate [ Generalized] Blood Pressure 135/79 137/79 O2 Sat by Pulse 100 99 100 Oximetry O2 Sat by Pulse Oximetry [ Anterior Bilateral] 06/09/16 06/09/16 06/09/16 01:30 01:49 02:00 Temperature Pulse Rate 94 H 94 H Pulse Rate [ 94 H From Monitor] Respiratory 22 12 17 Rate Respiratory Rate [ Generalized] Blood Pressure 139/85 155/91 O2 Sat by Pulse 98 100 98 Oximetry O2 Sat by Pulse Oximetry [ Anterior Bilateral] 06/09/16 06/09/16 06/09/16 02:30 03:00 03:30 Temperature Pulse Rate 94 H 95 H 95 H Pulse Rate [ From Monitor] Respiratory 21 22 22 Rate Respiratory Rate [ Generalized] Blood Pressure 146/98 162/93 159/97 O2 Sat by Pulse 100 99 98 Oximetry O2 Sat by Pulse Oximetry [ Anterior Bilateral] 06/09/16 06/09/16 06/09/16 04:00 04:30 04:43 Temperature 99.9 F H Pulse Rate 95 H 95 H 96 H Pulse Rate [ From Monitor] Respiratory 22 22 Rate Respiratory Rate [ Generalized] Blood Pressure 172/102 166/104 166/104 O2 Sat by Pulse 98 98 Oximetry O2 Sat by Pulse Oximetry [ Anterior Bilateral] 06/09/16 06/09/16 06/09/16 04:46 05:00 05:30 Temperature Pulse Rate 96 H 94 H 95 H Pulse Rate [ From Monitor] Respiratory 12 17 Rate Respiratory Rate [ Generalized] Blood Pressure 166/104 192/109 196/110 O2 Sat by Pulse 100 100 100 Oximetry O2 Sat by Pulse Oximetry [ Anterior Bilateral] 06/09/16 06/09/16 06:00 06:30 Temperature Pulse Rate 99 H 98 H Pulse Rate [ From Monitor] Respiratory 18 18 Rate Respiratory Rate [ Generalized] Blood Pressure 134/66 137/82 O2 Sat by Pulse 100 99 Oximetry O2 Sat by Pulse Oximetry [ Anterior Bilateral] - General Appearance General appearance: well-developed, well-nourished, sedated on ventilator (FiO2 40%), intubated EENT: ATNC, PERRL Neck: supple Respiratory: Present: Other (coarse breath sounds) Cardiology: regular, S1S2 Gastrointestinal: normoactive bowel sounds, no tenderness, no distended Integumentary: no rash Neurologic: other (not responding) Musculoskeletal: other (left UE edematous, left FA AVF) - Lab 06/09/16 04:00 06/09/16 04:00 Most recent lab results Calcium 8.1 mg/dL (8.4-10.2) L 06/09/16 04:00 Phosphorus 5.9 mg/dL (2.5-4.5) H 06/09/16 04:00 Magnesium 1.8 mg/dL (1.7-2.3) 06/09/16 04:00
--- NOTE | 2016-06-09 08:05 | Progress Note ---
Assessment and Plan Assessment and plan: --Elevated d-dimer's CT chest with contrast to rule out PE prior to hemodialysis today I discussed with the mortgage underwriter who agreed with the plan --Acute hypoxic respiratory failure Secondary to fluid overload, on vent Hemo-dialysis, wean as tolerated and extubate Pulmonary following --Left-sided pneumonia on chest x-ray Empiric antibiotics, follow cultures, supportive care --End-stage renal disease on hemodialysis HD per schedule --Chronic anemia secondary to end-stage renal disease However significant drop of hemoglobin from 11-8 today No evidence of bleeding Closely monitor H&H transfuse as needed --Non-ST elevation OK/positive troponins ,could be nonspecific secondary end- stage renal disease Cardiology following --Lactic acidosis, secondary to sepsis Lactic acid levels back to normal range --Malignant hypertension ; resume home antihypertensives and when necessary medications --DVT prophylaxis,With heparin We'll closely monitor the patient and adjust the management as needed Plan of care discussed with the patient's nurse, medical records reviewed Critical care time 31 minutes The high probability of a clinically significant, sudden or life threatening deterioration of the [respiratory, renal and cardiovascular] system(s) required my full and direct attention, intervention and personal management. The aggregate critical care time was [31] minutes. This time is in addition to time spent performing reported procedures but includes the following: [x] Data Review and interpretation [x] Patient assessment and monitoring of vital signs [x] Documentation [x] Medication orders and management History Interval history: Patient seen and evaluated this morning in ICU, no new events reported by the nursing staff Medical records reviewed, patient remains intubated on ventilatory support, on weaning parameters Patient has slight drop in H&H as well as elevated d-dimer's Hospitalist Physical - Constitutional Vitals: Temp Pulse Resp BP Pulse Ox 99.6 F 98 H 18 138/86 100 06/09/16 07:52 06/09/16 07:30 06/09/16 06:30 06/09/16 07:30 06/09/16 07:30 General appearance: Present: no acute distress, well-nourished, other ( intubated and sedated) - EENT Eyes: Present: PERRL, EOM intact - Neck Neck: Present: supple, normal ROM - Respiratory Respiratory effort: normal Respiratory: bilateral: diminished, rales, negative: rhonchi, wheezing - Cardiovascular Rhythm: regular Heart Sounds: Present: S1 & S2 - Extremities Extremities: no ischemia, pulses intact, pulses symmetrical - Abdominal General gastrointestinal: soft, non-tender, non-distended, normal bowel sounds - Integumentary Integumentary: Present: clear, warm - Psychiatric Psychiatric: other ( sedated on vent) - Neurologic Neurologic: other (sedated on vent) Results - Labs CBC & Chem 7: 06/09/16 04:00 06/09/16 04:00 Labs: Laboratory Last Values WBC 7.9 K/mm3 (4.5-11.0) 06/09/16 04:00 RBC 2.80 M/mm3 (3.65-5.03) L 06/09/16 04:00 Hgb 8.2 gm/dl (11.8-15.2) L 06/09/16 04:00 Hct 24.3 % (35.5-45.6) L D 06/09/16 04:00 MCV 87 fl (84-94) D 06/09/16 04:00 MCH 29 pg (28-32) 06/09/16 04:00 MCHC 34 % (32-34) 06/09/16 04:00 RDW 14.7 % (13.2-15.2) 06/09/16 04:00 Plt Count 111 K/mm3 (140-440) L 06/09/16 04:00 Lymph % (Auto) 11.1 % (13.4-35.0) L 06/09/16 04:00 [place] % (Auto) 6.1 % (0.0-7.3) 06/09/16 04:00 Eos % (Auto) 0.4 % (0.0-4.3) 06/09/16 04:00 Baso % (Auto) 0.3 % (0.0-1.8) 06/09/16 04:00 Lymph # 0.9 K/mm3 (1.2-5.4) L 06/09/16 04:00 [place] # 0.5 K/mm3 (0.0-0.8) 06/09/16 04:00 Eos # 0.0 K/mm3 (0.0-0.4) 06/09/16 04:00 Baso # 0.0 K/mm3 (0.0-0.1) 06/09/16 04:00 Seg Neutrophils % 82.1 % (40.0-70.0) H 06/09/16 04:00 Seg Neutrophils # 6.5 K/mm3 (1.8-7.7) 06/09/16 04:00 PT 14.1 Sec. (12.2-14.9) 06/08/16 02:01 INR 1.10 (0.87-1.13) 06/08/16 02:01 APTT 25.6 Sec. (24.2-36.6) 06/08/16 02:01 D-Dimer 1494.82 ng/mlDDU (0-234) H 06/08/16 04:35 POC ABG pH 7.504 (7.35-7.45) H 06/09/16 04:55 POC ABG pCO2 41.1 (35-45) 06/09/16 04:55 POC ABG pO2 259 (80-105) H 06/09/16 04:55 POC ABG HCO3 32.4 06/09/16 04:55 POC ABG Total CO2 34 06/09/16 04:55 POC ABG O2 Sat 100 06/09/16 04:55 POC ABG Base Excess 9 06/09/16 04:55 FiO2 60 % 06/08/16 08:51 Sodium 145 mmol/L (137-145) 06/09/16 04:00 Potassium 4.4 mmol/L (3.6-5.0) 06/09/16 04:00 Chloride 100.8 mmol/L (98-107) 06/09/16 04:00 Carbon Dioxide 27 mmol/L (22-30) 06/09/16 04:00 Anion Gap 22 mmol/L 06/09/16 04:00 BUN 42 mg/dL (9-20) H 06/09/16 04:00 Creatinine 9.0 mg/dL (0.8-1.5) H 06/09/16 04:00 Estimated GFR 8 ml/min 06/09/16 04:00 BUN/Creatinine Ratio 4.66 % 06/09/16 04:00 Glucose 88 mg/dL (75-100) 06/09/16 04:00 POC Glucose 101 (70-105) 06/08/16 01:48 Lactic Acid 0.6 mmol/L (0.7-2.0) L 06/08/16 05:45 Calcium 8.1 mg/dL (8.4-10.2) L 06/09/16 04:00 Phosphorus 5.9 mg/dL (2.5-4.5) H 06/09/16 04:00 Magnesium 1.8 mg/dL (1.7-2.3) 06/09/16 04:00 Total Bilirubin 0.4 mg/dL (0.1-1.2) 06/09/16 04:00 Direct Bilirubin < 0.2 mg/dL (0-0.2) 06/09/16 04:00 Indirect Bilirubin 0.2 mg/dL 06/09/16 04:00 AST 34 units/L (5-40) 06/09/16 04:00 ALT 44 units/L (7-56) 06/09/16 04:00 Alkaline Phosphatase 38 units/L (35-129) 06/09/16 04:00 Total Creatine Kinase 418 units/L (55-170) H 06/08/16 10:22 CK-MB (CK-2) 4.8 ng/mL (0.0-4.0) H 06/08/16 10:22 CK-MB (CK-2) Rel Index 1.1 (0-4) 06/08/16 10:22 Troponin T 0.143 ng/mL (0.00-0.029) H* D 06/08/16 10:22 NT-Pro-B Natriuret Pep 61470 pg/mL (0-450) H 06/08/16 02:01 Total Protein 6.2 g/dL (6.3-8.2) L D 06/09/16 04:00 Albumin 3.0 g/dL (3.9-5) L 06/09/16 04:00 Albumin/Globulin Ratio 0.9 % 06/09/16 04:00 Triglycerides 45 mg/dL (2-149) 06/08/16 04:35 Cholesterol 148 mg/dL (50-199) 06/08/16 04:35 LDL Cholesterol Direct 49 mg/dL (50-130) L 06/08/16 04:35 HDL Cholesterol 90 mg/dL (40-59) H 06/08/16 04:35 Cholesterol/HDL Ratio 1.64 % 06/08/16 04:35
--- NOTE | 2016-06-09 08:54 | XRay Report ---
PORTABLE CHEST INDICATION: Follow up respiratory failure. COMPARISON: Yesterday. FINDINGS: Portable, frontal chest radiographs, 2 images, 2:29 AM, 06/09/2016 demonstrates improving congestive airspace opacities, though mild bilateral pulmonary haziness persists, left slightly more than right. Left basilar atelectasis/consolidation/pleural fluid also again obscures the left hemidiaphragm. Stable cardiomediastinal silhouette, endotracheal and esophagogastric tubes, EKG leads and osseous structures. CONCLUSION: Resolving pulmonary air space opacities/edema, as detailed above. Thank you for the opportunity to participate in this patient's care.
[2016-06-09] MEDS: BABY ASPIRIN PO SCH (09:38)
[2016-06-09] MEDS: COREG PO SCH ×2 (09:39→21:03)
[2016-06-09] MEDS: LOVENOX SUB-Q SCH (09:39)
[2016-06-09] MEDS: SENSIPAR PO SCH (09:39)
[2016-06-09] MEDS: PEPCID IV SCH (09:39)
--- NOTE | 2016-06-09 12:05 | Progress Note ---
Assessment and Plan 50 y/o male with acute hypoxic respiratory failure most likely secondary to pulmonary edema. 1. Decrease PEEP and consider PSV trial 2. Follow up renal recs. Should have HD tomorrow 3. Turn off sedation 4. BP control with afterload reduction 5. Will determine need for bipap once extubate 6. Pending PSV trial maybe a candidate for extubation today. CCT 31 minutes. Subjective Date of service: 06/09/16 Interval history: No acute events. Had HD yesterday. Awake, and pulling at tube. ABG is good and CXR is improved. Objective Vital Signs - 12hr 06/09/16 06/09/16 06/09/16 00:07 00:30 01:00 Temperature Pulse Rate 73 73 73 Pulse Rate [ From Monitor] Respiratory 22 22 Rate Respiratory Rate [ Generalized] Blood Pressure 135/79 137/79 O2 Sat by Pulse 100 99 100 Oximetry 06/09/16 06/09/16 06/09/16 01:30 01:49 02:00 Temperature Pulse Rate 94 H 94 H Pulse Rate [ 94 H From Monitor] Respiratory 22 12 17 Rate Respiratory Rate [ Generalized] Blood Pressure 139/85 155/91 O2 Sat by Pulse 98 100 98 Oximetry 06/09/16 06/09/16 06/09/16 02:30 03:00 03:30 Temperature Pulse Rate 94 H 95 H 95 H Pulse Rate [ From Monitor] Respiratory 21 22 22 Rate Respiratory Rate [ Generalized] Blood Pressure 146/98 162/93 159/97 O2 Sat by Pulse 100 99 98 Oximetry 06/09/16 06/09/16 06/09/16 04:00 04:30 04:43 Temperature 99.9 F H Pulse Rate 95 H 95 H 96 H Pulse Rate [ From Monitor] Respiratory 22 22 Rate Respiratory Rate [ Generalized] Blood Pressure 172/102 166/104 166/104 O2 Sat by Pulse 98 98 Oximetry 06/09/16 06/09/16 06/09/16 04:46 05:00 05:30 Temperature Pulse Rate 96 H 94 H 95 H Pulse Rate [ From Monitor] Respiratory 12 17 Rate Respiratory Rate [ Generalized] Blood Pressure 166/104 192/109 196/110 O2 Sat by Pulse 100 100 100 Oximetry 06/09/16 06/09/16 06/09/16 06:00 06:30 07:00 Temperature Pulse Rate 99 H 98 H 97 H Pulse Rate [ 99 H From Monitor] Respiratory 18 18 18 Rate Respiratory Rate [ Generalized] Blood Pressure 134/66 137/82 131/87 O2 Sat by Pulse 100 99 99 Oximetry 06/09/16 06/09/16 06/09/16 07:26 07:30 07:52 Temperature 99.6 F Pulse Rate 98 H 98 H Pulse Rate [ From Monitor] Respiratory 18 Rate Respiratory Rate [ Generalized] Blood Pressure 138/86 145/93 O2 Sat by Pulse 100 98 Oximetry 06/09/16 06/09/16 06/09/16 08:00 08:09 08:25 Temperature Pulse Rate 97 H Pulse Rate [ 97 H From Monitor] Respiratory 18 18 18 Rate Respiratory Rate [ Generalized] Blood Pressure 150/92 O2 Sat by Pulse 98 100 Oximetry 06/09/16 06/09/16 06/09/16 08:30 09:00 09:30 Temperature Pulse Rate 97 H 97 H 99 H Pulse Rate [ From Monitor] Respiratory 18 18 18 Rate Respiratory Rate [ Generalized] Blood Pressure 145/90 145/94 155/92 O2 Sat by Pulse 98 98 98 Oximetry 06/09/16 06/09/16 06/09/16 09:39 10:00 10:30 Temperature Pulse Rate 98 H 98 H 99 H Pulse Rate [ From Monitor] Respiratory 18 18 Rate Respiratory 18 Rate [ Generalized] Blood Pressure 155/92 161/93 154/89 O2 Sat by Pulse 98 98 Oximetry 06/09/16 06/09/16 11:00 11:31 Temperature Pulse Rate 98 H 102 H Pulse Rate [ From Monitor] Respiratory 18 Rate Respiratory Rate [ Generalized] Blood Pressure 160/91 167/96 O2 Sat by Pulse 98 97 Oximetry Constitutional: no acute distress, alert ENT: other (orally intubated) Neck: supple Ascultation: Bilateral: rales, rhonchi Percussion: Bilateral: not dull CBC and BMP: 06/09/16 04:00 06/09/16 04:00 ABG, PT/INR, D-dimer: ABG POC ABG pH 7.504 (7.35-7.45) H 06/09/16 04:55 POC ABG pCO2 41.1 (35-45) 06/09/16 04:55 POC ABG pO2 259 (80-105) H 06/09/16 04:55 POC ABG HCO3 32.4 06/09/16 04:55 POC ABG Total CO2 34 06/09/16 04:55 POC ABG O2 Sat 100 06/09/16 04:55 PT/INR, D-dimer PT 14.1 Sec. (12.2-14.9) 06/08/16 02:01 INR 1.10 (0.87-1.13) 06/08/16 02:01 D-Dimer 1494.82 ng/mlDDU (0-234) H 06/08/16 04:35 Abnormal lab findings: Abnormal Labs 06/08/16 06/08/16 06/08/16 04:35 04:35 05:45 RBC Hgb Hct Plt Count Lymph % (Auto) Lymph # Seg Neutrophils % D-Dimer 1494.82 H POC ABG pH POC ABG pCO2 POC ABG pO2 BUN Creatinine Lactic Acid 0.6 L Calcium Phosphorus Total Creatine Kinase 419 H CK-MB (CK-2) Troponin T 0.118 H* D Total Protein Albumin LDL Cholesterol Direct 49 L HDL Cholesterol 90 H 06/08/16 06/08/16 06/08/16 06:20 07:41 08:51 RBC Hgb Hct Plt Count Lymph % (Auto) Lymph # Seg Neutrophils % D-Dimer POC ABG pH 7.342 L POC ABG pCO2 45.4 H 48.4 H POC ABG pO2 55 L 69 L BUN Creatinine Lactic Acid Calcium Phosphorus Total Creatine Kinase CK-MB (CK-2) Troponin T 0.118 H* Total Protein Albumin LDL Cholesterol Direct HDL Cholesterol 06/08/16 06/09/16 06/09/16 10:22 04:00 04:00 RBC 2.80 L Hgb 8.2 L Hct 24.3 L D Plt Count 111 L Lymph % (Auto) 11.1 L Lymph # 0.9 L Seg Neutrophils % 82.1 H D-Dimer POC ABG pH POC ABG pCO2 POC ABG pO2 BUN 42 H Creatinine 9.0 H Lactic Acid Calcium 8.1 L Phosphorus 5.9 H Total Creatine Kinase 418 H CK-MB (CK-2) 4.8 H Troponin T 0.143 H* D Total Protein 6.2 L D Albumin 3.0 L LDL Cholesterol Direct HDL Cholesterol 06/09/16 04:55 RBC Hgb Hct Plt Count Lymph % (Auto) Lymph # Seg Neutrophils % D-Dimer POC ABG pH 7.504 H POC ABG pCO2 POC ABG pO2 259 H BUN Creatinine Lactic Acid Calcium Phosphorus Total Creatine Kinase CK-MB (CK-2) Troponin T Total Protein Albumin LDL Cholesterol Direct HDL Cholesterol
[2016-06-09] MEDS: RENVELA PO SCH ×2 (12:35→16:37)
[2016-06-09] MEDS: PROCARDIA XL PO SCH ×2 (12:35→14:38)
[2016-06-09] MEDS: APRESOLINE PO SCH ×2 (14:38→20:57)
--- NOTE | 2016-06-09 14:55 | Progress Note ---
Assessment and Plan Acute respiratory failure secondary to volume overload and pulmonary edema extubated ESRD on dialysis Chronic elevated troponin secondary to renal disease Hypertension Thallium stress test 10/2015 was negative. Echocardiogram 02/2016 demonstrated normal left ventricular systolic function with ejection fraction 55%, at least moderate concentric left ventricular hypertrophy was noted Fluid management through HD. Conservative management. Subjective Date of service: 06/09/16 Interval history: status post extubation today. No distress noted. Bilateral wrist restraints in place. Objective Vital Signs Temp Pulse Pulse Resp Resp BP Pulse Ox 06/09/16 14:00 107 H 23 179/104 06/09/16 13:30 111 H 28 H 167/102 95 06/09/16 13:00 113 H 22 151/92 95 06/09/16 12:34 113 H 179/100 06/09/16 12:30 113 H 20 179/100 95 06/09/16 12:00 99.8 F H 111 H 26 H 177/102 95 06/09/16 11:31 102 H 167/96 97 06/09/16 11:30 101 H 14 172/99 96 06/09/16 11:00 98 H 18 160/91 98 06/09/16 10:30 99 H 18 154/89 98 06/09/16 10:00 98 H 18 18 161/93 98 06/09/16 09:39 98 H 155/92 06/09/16 09:30 99 H 18 155/92 98 06/09/16 09:00 97 H 18 145/94 98 06/09/16 08:30 97 H 18 145/90 98 06/09/16 08:25 97 H 18 100 06/09/16 08:09 18 06/09/16 08:00 97 H 18 150/92 98 06/09/16 07:52 99.6 F 06/09/16 07:30 98 H 18 145/93 98 06/09/16 07:26 98 H 138/86 100 06/09/16 07:00 97 H 18 131/87 99 06/09/16 06:30 98 H 18 137/82 99 06/09/16 06:00 99 H 99 H 18 134/66 100 06/09/16 05:30 95 H 17 196/110 100 06/09/16 05:00 94 H 12 192/109 100 06/09/16 04:46 96 H 166/104 100 06/09/16 04:43 96 H 166/104 06/09/16 04:30 95 H 22 166/104 98 06/09/16 04:00 99.9 F H 95 H 22 172/102 98 06/09/16 03:30 95 H 22 159/97 98 06/09/16 03:00 95 H 22 162/93 99 06/09/16 02:30 94 H 21 146/98 100 06/09/16 02:00 94 H 17 155/91 98 06/09/16 01:49 94 H 12 100 06/09/16 01:30 94 H 22 139/85 98 06/09/16 01:00 73 22 100 06/09/16 00:30 73 22 137/79 99 06/09/16 00:07 73 135/79 100 06/09/16 00:00 99.8 F H 73 11 L 158/93 100 06/08/16 23:30 70 22 181/97 100 06/08/16 23:00 68 21 169/95 100 06/08/16 22:30 67 8 L 193/105 100 06/08/16 22:26 67 193/105 100 06/08/16 22:10 66 197/109 06/08/16 22:00 66 66 22 22 205/110 100 06/08/16 21:56 65 06/08/16 21:30 65 22 169/103 100 06/08/16 21:00 63 22 141/93 06/08/16 20:45 98.1 F 62 22 134/91 06/08/16 20:30 62 22 134/91 100 06/08/16 20:15 61 122/81 06/08/16 20:00 98.1 F 63 17 92/55 100 06/08/16 19:45 64 152/96 06/08/16 19:30 63 22 152/96 100 06/08/16 19:15 63 155/97 06/08/16 19:00 61 17 161/101 100 06/08/16 18:45 64 151/96 06/08/16 18:30 64 23 129/93 100 06/08/16 18:15 68 142/86 06/08/16 18:00 68 11 L 135/83 99 06/08/16 17:45 68 150/89 06/08/16 17:30 68 22 150/89 99 06/08/16 17:15 67 165/96 06/08/16 17:09 65 164/93 100 06/08/16 17:00 66 22 164/93 99 06/08/16 16:45 98.8 F 67 20 167/94 06/08/16 16:30 67 22 167/94 100 06/08/16 16:00 67 22 167/94 100 06/08/16 15:30 67 20 176/97 100 06/08/16 15:00 67 22 176/97 100 Pulse Ox 06/09/16 14:00 06/09/16 13:30 06/09/16 13:00 06/09/16 12:34 06/09/16 12:30 06/09/16 12:00 06/09/16 11:31 06/09/16 11:30 06/09/16 11:00 06/09/16 10:30 06/09/16 10:00 06/09/16 09:39 06/09/16 09:30 06/09/16 09:00 06/09/16 08:30 06/09/16 08:25 06/09/16 08:09 06/09/16 08:00 06/09/16 07:52 06/09/16 07:30 06/09/16 07:26 06/09/16 07:00 06/09/16 06:30 06/09/16 06:00 06/09/16 05:30 06/09/16 05:00 06/09/16 04:46 06/09/16 04:43 06/09/16 04:30 06/09/16 04:00 06/09/16 03:30 06/09/16 03:00 06/09/16 02:30 06/09/16 02:00 06/09/16 01:49 06/09/16 01:30 06/09/16 01:00 06/09/16 00:30 06/09/16 00:07 06/09/16 00:00 06/08/16 23:30 06/08/16 23:00 06/08/16 22:30 06/08/16 22:26 06/08/16 22:10 06/08/16 22:00 06/08/16 21:56 06/08/16 21:30 06/08/16 21:00 06/08/16 20:45 100 06/08/16 20:30 06/08/16 20:15 06/08/16 20:00 06/08/16 19:45 06/08/16 19:30 06/08/16 19:15 06/08/16 19:00 06/08/16 18:45 06/08/16 18:30 06/08/16 18:15 06/08/16 18:00 06/08/16 17:45 06/08/16 17:30 06/08/16 17:15 06/08/16 17:09 06/08/16 17:00 06/08/16 16:45 100 06/08/16 16:30 06/08/16 16:00 06/08/16 15:30 06/08/16 15:00 - Physical Examination General: No Apparent Distress Cardiac: Positive: Reg Rate and Rhythm - Labs and Meds Cardiac Enzymes 06/09/16 Range/Units 04:00 AST 34 (5-40) units/L CBC 06/09/16 Range/Units 04:00 WBC 7.9 (4.5-11.0) K/mm3 RBC 2.80 L (3.65-5.03) M/mm3 Hgb 8.2 L (11.8-15.2) gm/dl Hct 24.3 L D (35.5-45.6) % Plt Count 111 L (140-440) K/mm3 Lymph # 0.9 L (1.2-5.4) K/mm3 [place] # 0.5 (0.0-0.8) K/mm3 Eos # 0.0 (0.0-0.4) K/mm3 Baso # 0.0 (0.0-0.1) K/mm3 Comprehensive Metabolic Panel 06/09/16 Range/Units 04:00 Sodium 145 (137-145) mmol/L Potassium 4.4 (3.6-5.0) mmol/L Chloride 100.8 (98-107) mmol/L Carbon Dioxide 27 (22-30) mmol/L BUN 42 H (9-20) mg/dL Creatinine 9.0 H (0.8-1.5) mg/dL Glucose 88 (75-100) mg/dL Calcium 8.1 L (8.4-10.2) mg/dL Direct Bilirubin < 0.2 (0-0.2) mg/dL Indirect Bilirubin 0.2 mg/dL AST 34 (5-40) units/L ALT 44 (7-56) units/L Alkaline Phosphatase 38 (35-129) units/L Total Protein 6.2 L D (6.3-8.2) g/dL Albumin 3.0 L (3.9-5) g/dL - Imaging and Cardiology EKG: image reviewed
[2016-06-09] MEDS: DIOVAN PO SCH ×2 (16:37→21:04)
[2016-06-10 05:08] LABS: Basophils % (Auto) 0.6 % (0.0-1.8); Hematocrit 25.6 % (35.5-45.6); Hemoglobin 8.6 gm/dl (11.8-15.2); Mean Corpuscular HGB Conc 34 % (32-34); Mean Corpuscular Hemoglobin 30 pg (28-32); Mean Corpuscular Volume 87 fl (84-94); Platelet Count 130 K/mm3 (140-440); Red Blood Count 2.93 M/mm3 (3.65-5.03); Red Cell Distribution Width 15.1 % (13.2-15.2); White Blood Count 8.6 K/mm3 (4.5-11.0)
[2016-06-10 05:11] LABS: INR 1.16 (0.87-1.13)
[2016-06-10 05:15] LABS: BUN/Creatinine Ratio 5.73; Calcium 8.4 mg/dL (8.4-10.2); Chloride 100.8 mmol/L (98-107); Potassium 4.4 mmol/L (3.6-5.0)
[2016-06-10] MEDS ORDERED: NACL 0.9% 100 ML IV PRN (07:34)
--- NOTE | 2016-06-10 07:36 | Progress Note ---
Assessment and Plan - Patient Problems (1) Hyperkalemia Current Visit: Yes Status: Acute Plan to address problem: Hyperkalemia in the setting of ESRD. Improved with Hemodialysis. (2) End stage renal disease on dialysis Current Visit: Yes Status: Chronic Plan to address problem: Continue Hemodialysis on MWFs. Scheduled to get hemodialysis today. (3) Pulmonary edema Current Visit: Yes Status: Acute Qualifiers: Chronicity: acute Qualified Code(s): J81.0 - Acute pulmonary edema Plan to address problem: Improved with fluid removal with hemodialysis. (4) Respiratory failure Current Visit: Yes Status: Acute Qualifiers: Chronicity: acute Respiratory failure complication: hypoxia Qualified Code(s): J96.01 - Acute respiratory failure with hypoxia Plan to address problem: s/p extubated. (5) Hypertension Current Visit: No Status: Chronic Qualifiers: Hypertension type: H Plan to address problem: BP is fair. (6) Anemia Current Visit: No Status: Chronic Qualifiers: Anemia type: A Iron deficiency anemia type: I Vitamin B12 deficiency anemia type: V Folate deficiency anemia type: F Bone marrow failure anemia type: B Hemolytic anemia type: H Other causes of anemia: chronic disease, kidney Qualified Code(s): N18.9 - Chronic kidney disease, unspecified; D63.1 - Anemia in chronic kidney disease Plan to address problem: Epogen with hemodialysis. Subjective Date of service: 06/10/16 Interval history: Patient is feeling much better. Objective - Vital Signs Vital signs: Vital Signs - 12hr 06/09/16 06/09/16 06/09/16 20:00 20:30 21:00 Temperature 98.7 F Pulse Rate 104 H 103 H 101 H Pulse Rate [ From Monitor] Respiratory 24 30 H 22 Rate Respiratory Rate [ Generalized] Blood Pressure 145/85 151/84 153/88 O2 Sat by Pulse 95 95 95 Oximetry 06/09/16 06/09/16 06/09/16 21:03 21:04 21:30 Temperature Pulse Rate 101 H 101 H 102 H Pulse Rate [ From Monitor] Respiratory 25 H Rate Respiratory Rate [ Generalized] Blood Pressure 148/88 153/88 154/87 O2 Sat by Pulse 97 Oximetry 06/09/16 06/09/16 06/09/16 21:59 22:00 22:30 Temperature Pulse Rate 101 H 102 H Pulse Rate [ 101 H From Monitor] Respiratory 25 H 29 H Rate Respiratory 26 H Rate [ Generalized] Blood Pressure 149/79 142/78 O2 Sat by Pulse 99 95 95 Oximetry 06/09/16 06/09/16 06/09/16 23:00 23:30 23:41 Temperature Pulse Rate 101 H 100 H 98 H Pulse Rate [ From Monitor] Respiratory 26 H 24 Rate Respiratory Rate [ Generalized] Blood Pressure 146/81 151/82 O2 Sat by Pulse 95 95 Oximetry 06/10/16 06/10/16 00:00 04:00 Temperature 98.0 F 98.3 F Pulse Rate Pulse Rate [ From Monitor] Respiratory Rate Respiratory Rate [ Generalized] Blood Pressure O2 Sat by Pulse Oximetry - General Appearance General appearance: well-developed, well-nourished, appears stated age, other ( no distress) EENT: PERRL, mucous membranes moist, hearing intact, vision intact Neck: no carotid bruit, supple Respiratory: Present: Clear to Ascultation Cardiology: regular, S1S2, no murmurs Gastrointestinal: normoactive bowel sounds, no tenderness, no distended, no guarding Integumentary: no rash, warm and dry Neurologic: no focal deficit, no asterixis, CN 3-12 intact Musculoskeletal: other (right UE swelling, right FA AVF) Psychiatric: cooperative - Lab 06/10/16 04:34 06/10/16 04:34 Most recent lab results Calcium 8.4 mg/dL (8.4-10.2) 06/10/16 04:34 Phosphorus 5.9 mg/dL (2.5-4.5) H 06/09/16 04:00 Magnesium 1.8 mg/dL (1.7-2.3) 06/09/16 04:00
[2016-06-10] MEDS: BABY ASPIRIN PO SCH (07:38)
[2016-06-10] MEDS ORDERED: NACL 0.9% 250ML 250 ML ONE ×2 (08:15→08:19)
[2016-06-10] MEDS ORDERED: HEPARIN/NS 5000 UNIT/500ML(CATH LAB) 1,000 ML IR ONE (08:15)
[2016-06-10] MEDS: VERSED ONE ×2 (08:30→08:35)
[2016-06-10] MEDS: SUBLIMAZE ONE ×2 (08:30→08:35)
[2016-06-10] MEDS: XYLOCAINE 2% INFILTRATI ONE ×2 (08:30→08:38)
--- NOTE | 2016-06-10 09:43 | Progress Note ---
Assessment and Plan Acute respiratory failure secondary to volume overload and pulmonary edema s/p extubation ESRD on dialysis Hyperdynamic LV with high cardiac output Chronic elevated troponin Normal coronaries by [facility] Hypertension Thallium stress test 10/2015 was negative. Echocardiogram 02/2016 demonstrated normal left ventricular systolic function with ejection fraction 55%, at least moderate concentric left ventricular hypertrophy was noted. Recommendations: Continue current management Discussed with Dr Izaguirre - suspect high output heart failure from significant AV shunt through right forearm fistula. Dr Izaguirre will obtain a vascular US to evaluate for the need of resizing AV fistula in order to prevent further high output heart failure and pulmonary hypertension in the future Subjective Date of service: 06/10/16 Principal diagnosis: CHF Interval history: Patient underwent a [facility] today without complications Objective Vital Signs Temp Pulse Pulse Pulse Pulse Resp Resp 06/10/16 08:00 97.7 F 06/10/16 07:00 94 H 24 06/10/16 06:30 96 H 21 06/10/16 06:00 93 H 22 06/10/16 05:30 93 H 18 06/10/16 05:00 94 H 16 06/10/16 04:30 91 H 22 06/10/16 04:00 98.3 F 95 H 28 H 06/10/16 03:30 94 H 23 06/10/16 03:00 95 H 21 06/10/16 02:30 96 H 21 06/10/16 02:00 95 H 24 06/10/16 01:30 97 H 25 H 06/10/16 01:00 97 H 21 06/10/16 00:30 98 H 25 H 06/10/16 00:00 98.0 F 98 H 96 H 93 H 91 H 22 06/09/16 23:41 98 H 06/09/16 23:34 100 H 28 H 06/09/16 23:30 100 H 24 06/09/16 23:00 101 H 26 H 06/09/16 22:30 102 H 29 H 06/09/16 22:00 101 H 101 H 25 H 26 H 06/09/16 21:59 06/09/16 21:30 102 H 25 H 06/09/16 21:04 101 H 06/09/16 21:03 101 H 06/09/16 21:00 101 H 22 06/09/16 20:30 103 H 30 H 06/09/16 20:00 98.7 F 104 H 24 06/09/16 19:30 101 H 23 06/09/16 19:00 105 H 25 H 06/09/16 18:30 105 H 25 H 06/09/16 18:00 103 H 23 06/09/16 17:30 105 H 26 H 06/09/16 17:00 105 H 24 06/09/16 16:39 102 H 06/09/16 16:37 100 H 06/09/16 16:30 103 H 30 H 06/09/16 16:00 99.0 F 103 H 102 H 24 06/09/16 15:30 102 H 22 06/09/16 15:00 102 H 23 06/09/16 14:30 107 H 26 H 06/09/16 14:00 107 H 23 06/09/16 13:30 111 H 28 H 06/09/16 13:00 113 H 22 06/09/16 12:34 113 H 06/09/16 12:30 113 H 20 06/09/16 12:00 99.8 F H 111 H 112 H 20 06/09/16 11:31 102 H 06/09/16 11:30 101 H 14 06/09/16 11:00 98 H 18 06/09/16 10:30 99 H 18 06/09/16 10:00 98 H 18 18 BP Pulse Ox 06/10/16 08:00 06/10/16 07:00 131/66 91 06/10/16 06:30 144/81 91 06/10/16 06:00 138/76 96 06/10/16 05:30 143/81 97 06/10/16 05:00 150/85 95 06/10/16 04:30 135/79 90 06/10/16 04:00 141/77 91 06/10/16 03:30 137/74 91 06/10/16 03:00 135/73 91 06/10/16 02:30 140/74 91 06/10/16 02:00 142/74 89 06/10/16 01:30 138/75 91 06/10/16 01:00 135/69 95 06/10/16 00:30 137/78 96 06/10/16 00:00 134/80 94 06/09/16 23:41 06/09/16 23:34 151/82 98 06/09/16 23:30 151/82 95 06/09/16 23:00 146/81 95 06/09/16 22:30 142/78 95 06/09/16 22:00 149/79 95 06/09/16 21:59 99 06/09/16 21:30 154/87 97 06/09/16 21:04 153/88 06/09/16 21:03 148/88 06/09/16 21:00 153/88 95 06/09/16 20:30 151/84 95 06/09/16 20:00 145/85 95 06/09/16 19:30 151/82 95 06/09/16 19:00 145/84 95 06/09/16 18:30 150/82 88 06/09/16 18:00 151/86 95 06/09/16 17:30 159/91 96 06/09/16 17:00 171/98 90 06/09/16 16:39 180/104 06/09/16 16:37 180/104 06/09/16 16:30 180/104 96 06/09/16 16:00 172/99 95 06/09/16 15:30 173/101 95 06/09/16 15:00 185/104 96 06/09/16 14:30 184/103 96 06/09/16 14:00 179/104 06/09/16 13:30 167/102 95 06/09/16 13:00 151/92 95 06/09/16 12:34 179/100 06/09/16 12:30 179/100 95 06/09/16 12:00 177/102 98 06/09/16 11:31 167/96 97 06/09/16 11:30 172/99 96 06/09/16 11:00 160/91 98 06/09/16 10:30 154/89 98 06/09/16 10:00 161/93 98 - Physical Examination General: No Apparent Distress Neck: Positive: neck supple, trachea midline Cardiac: Positive: Reg Rate and Rhythm Lungs: Positive: Normal Exam - Labs and Meds Coagulation 06/10/16 Range/Units 04:34 PT 14.7 (12.2-14.9) Sec. INR 1.16 H (0.87-1.13) CBC 06/10/16 Range/Units 04:34 WBC 8.6 (4.5-11.0) K/mm3 RBC 2.93 L (3.65-5.03) M/mm3 Hgb 8.6 L (11.8-15.2) gm/dl Hct 25.6 L (35.5-45.6) % Plt Count 130 L (140-440) K/mm3 Lymph # 1.2 (1.2-5.4) K/mm3 [place] # 0.5 (0.0-0.8) K/mm3 Eos # 0.2 (0.0-0.4) K/mm3 Baso # 0.0 (0.0-0.1) K/mm3 Comprehensive Metabolic Panel 06/10/16 Range/Units 04:34 Sodium 145 (137-145) mmol/L Potassium 4.4 (3.6-5.0) mmol/L Chloride 100.8 (98-107) mmol/L Carbon Dioxide 25 (22-30) mmol/L BUN 70 H (9-20) mg/dL Creatinine 12.2 H (0.8-1.5) mg/dL Glucose 122 H (75-100) mg/dL Calcium 8.4 (8.4-10.2) mg/dL - Imaging and Cardiology EKG: image reviewed
[2016-06-10] MEDS ORDERED: LEVAQUIN 500MG/100ML 500 MG/100 ML BAG IV SCH (10:00)
--- NOTE | 2016-06-10 11:02 | Progress Note ---
Assessment and Plan Assessment and plan: --Acute hypoxic respiratory failure Secondary to fluid overload, postextubation Saturating well on room air --Left-sided pneumonia on chest x-ray Empiric antibiotics, follow cultures, supportive care --End-stage renal disease on hemodialysis HD per schedule --Chronic anemia secondary to end-stage renal disease low Stable H&H --Non-ST elevation DC/positive troponins , status post coronary angiogram Normal coronaries --Lactic acidosis, secondary to sepsis Lactic acid levels back to normal range --Malignant hypertension ; Blood pressures reasonable control, continue current antihypertensives and when necessary medications --DVT prophylaxis,With heparin We'll closely monitor the patient and adjust the management as needed Patient is stable to be transferred out of the ICU Discharge in 1-2 days if stable History Interval history: Patient seen and evaluated medical records reviewed New events reported by the nursing staff, feels better denies any chest pain or shortness of breath Underwent left heart cath normal coronaries Alert awake oriented 3 not in acute distress vital signs are stable Hospitalist Physical - Constitutional Vitals: Temp Pulse Resp BP Pulse Ox 97.7 F 94 H 24 131/66 91 06/10/16 08:00 06/10/16 07:00 06/10/16 07:00 06/10/16 07:00 06/10/16 07:00 General appearance: Present: no acute distress, well-nourished, other ( intubated and sedated) - EENT Eyes: Present: PERRL, EOM intact - Neck Neck: Present: supple, normal ROM - Respiratory Respiratory effort: normal Respiratory: negative: rales, rhonchi, wheezing - Cardiovascular Rhythm: regular Heart Sounds: Present: S1 & S2 - Extremities Extremities: no ischemia, pulses intact, pulses symmetrical Peripheral Pulses: within normal limits - Abdominal General gastrointestinal: soft, non-tender, non-distended, normal bowel sounds - Integumentary Integumentary: Present: clear, warm - Psychiatric Psychiatric: appropriate mood/affect, cooperative - Neurologic Neurologic: CNII-XII intact, moves all extremities Results - Labs CBC & Chem 7: 06/10/16 04:34 06/10/16 04:34 Labs: Laboratory Last Values WBC 8.6 K/mm3 (4.5-11.0) 06/10/16 04:34 RBC 2.93 M/mm3 (3.65-5.03) L 06/10/16 04:34 Hgb 8.6 gm/dl (11.8-15.2) L 06/10/16 04:34 Hct 25.6 % (35.5-45.6) L 06/10/16 04:34 MCV 87 fl (84-94) 06/10/16 04:34 MCH 30 pg (28-32) 06/10/16 04:34 MCHC 34 % (32-34) 06/10/16 04:34 RDW 15.1 % (13.2-15.2) 06/10/16 04:34 Plt Count 130 K/mm3 (140-440) L 06/10/16 04:34 Lymph % (Auto) 14.2 % (13.4-35.0) 06/10/16 04:34 [place] % (Auto) 5.8 % (0.0-7.3) 06/10/16 04:34 Eos % (Auto) 2.0 % (0.0-4.3) 06/10/16 04:34 Baso % (Auto) 0.6 % (0.0-1.8) 06/10/16 04:34 Lymph # 1.2 K/mm3 (1.2-5.4) 06/10/16 04:34 [place] # 0.5 K/mm3 (0.0-0.8) 06/10/16 04:34 Eos # 0.2 K/mm3 (0.0-0.4) 06/10/16 04:34 Baso # 0.0 K/mm3 (0.0-0.1) 06/10/16 04:34 Seg Neutrophils % 77.4 % (40.0-70.0) H 06/10/16 04:34 Seg Neutrophils # 6.6 K/mm3 (1.8-7.7) 06/10/16 04:34 PT 14.7 Sec. (12.2-14.9) 06/10/16 04:34 INR 1.16 (0.87-1.13) H 06/10/16 04:34 APTT 25.6 Sec. (24.2-36.6) 06/08/16 02:01 D-Dimer 1494.82 ng/mlDDU (0-234) H 06/08/16 04:35 POC ABG pH 7.504 (7.35-7.45) H 06/09/16 04:55 POC ABG pCO2 41.1 (35-45) 06/09/16 04:55 POC ABG pO2 259 (80-105) H 06/09/16 04:55 POC ABG HCO3 32.4 06/09/16 04:55 POC ABG Total CO2 34 06/09/16 04:55 POC ABG O2 Sat 100 06/09/16 04:55 POC ABG Base Excess 9 06/09/16 04:55 FiO2 60 % 06/08/16 08:51 Sodium 145 mmol/L (137-145) 06/10/16 04:34 Potassium 4.4 mmol/L (3.6-5.0) 06/10/16 04:34 Chloride 100.8 mmol/L (98-107) 06/10/16 04:34 Carbon Dioxide 25 mmol/L (22-30) 06/10/16 04:34 Anion Gap 24 mmol/L 06/10/16 04:34 BUN 70 mg/dL (9-20) H 06/10/16 04:34 Creatinine 12.2 mg/dL (0.8-1.5) H 06/10/16 04:34 Estimated GFR 5 ml/min 06/10/16 04:34 BUN/Creatinine Ratio 5.73 % 06/10/16 04:34 Glucose 122 mg/dL (75-100) H 06/10/16 04:34 POC Glucose 98 (70-105) 06/10/16 10:02 Lactic Acid 0.6 mmol/L (0.7-2.0) L 06/08/16 05:45 Calcium 8.4 mg/dL (8.4-10.2) 06/10/16 04:34 Phosphorus 5.9 mg/dL (2.5-4.5) H 06/09/16 04:00 Magnesium 1.8 mg/dL (1.7-2.3) 06/09/16 04:00 Total Bilirubin 0.4 mg/dL (0.1-1.2) 06/09/16 04:00 Direct Bilirubin < 0.2 mg/dL (0-0.2) 06/09/16 04:00 Indirect Bilirubin 0.2 mg/dL 06/09/16 04:00 AST 34 units/L (5-40) 06/09/16 04:00 ALT 44 units/L (7-56) 06/09/16 04:00 Alkaline Phosphatase 38 units/L (35-129) 06/09/16 04:00 Total Creatine Kinase 418 units/L (55-170) H 06/08/16 10:22 CK-MB (CK-2) 4.8 ng/mL (0.0-4.0) H 06/08/16 10:22 CK-MB (CK-2) Rel Index 1.1 (0-4) 06/08/16 10:22 Troponin T 0.143 ng/mL (0.00-0.029) H* D 06/08/16 10:22 NT-Pro-B Natriuret Pep 76356 pg/mL (0-450) H 06/08/16 02:01 Total Protein 6.2 g/dL (6.3-8.2) L D 06/09/16 04:00 Albumin 3.0 g/dL (3.9-5) L 06/09/16 04:00 Albumin/Globulin Ratio 0.9 % 06/09/16 04:00 Triglycerides 45 mg/dL (2-149) 06/08/16 04:35 Cholesterol 148 mg/dL (50-199) 06/08/16 04:35 LDL Cholesterol Direct 49 mg/dL (50-130) L 06/08/16 04:35 HDL Cholesterol 90 mg/dL (40-59) H 06/08/16 04:35 Cholesterol/HDL Ratio 1.64 % 06/08/16 04:35
[2016-06-10] MEDS: SENSIPAR PO SCH (11:11)
[2016-06-10] MEDS: RENVELA PO SCH ×3 (11:11→17:00)
[2016-06-10] MEDS: PROCARDIA XL PO SCH (11:12)
[2016-06-10] MEDS: PEPCID PO SCH (11:12)
[2016-06-10] MEDS: DIOVAN PO SCH ×2 (11:13→22:35)
[2016-06-10] MEDS: COREG PO SCH ×2 (11:13→22:36)
[2016-06-10] MEDS: LOVENOX SUB-Q SCH (11:14)
[2016-06-10] MEDS: APRESOLINE PO SCH ×3 (11:19→20:38)
--- NOTE | 2016-06-10 12:00 | Progress Note ---
Hospitalist Physical - Constitutional Vitals: Temp Pulse Resp BP Pulse Ox 97.7 F 97 H 19 158/90 94 06/10/16 08:00 06/10/16 11:00 06/10/16 11:00 06/10/16 11:13 06/10/16 10:30 General appearance: Present: no acute distress, well-nourished, other ( intubated and sedated) Results - Labs CBC & Chem 7: 06/10/16 04:34 06/10/16 04:34 Labs: Laboratory Last Values WBC 8.6 K/mm3 (4.5-11.0) 06/10/16 04:34 RBC 2.93 M/mm3 (3.65-5.03) L 06/10/16 04:34 Hgb 8.6 gm/dl (11.8-15.2) L 06/10/16 04:34 Hct 25.6 % (35.5-45.6) L 06/10/16 04:34 MCV 87 fl (84-94) 06/10/16 04:34 MCH 30 pg (28-32) 06/10/16 04:34 MCHC 34 % (32-34) 06/10/16 04:34 RDW 15.1 % (13.2-15.2) 06/10/16 04:34 Plt Count 130 K/mm3 (140-440) L 06/10/16 04:34 Lymph % (Auto) 14.2 % (13.4-35.0) 06/10/16 04:34 [place] % (Auto) 5.8 % (0.0-7.3) 06/10/16 04:34 Eos % (Auto) 2.0 % (0.0-4.3) 06/10/16 04:34 Baso % (Auto) 0.6 % (0.0-1.8) 06/10/16 04:34 Lymph # 1.2 K/mm3 (1.2-5.4) 06/10/16 04:34 [place] # 0.5 K/mm3 (0.0-0.8) 06/10/16 04:34 Eos # 0.2 K/mm3 (0.0-0.4) 06/10/16 04:34 Baso # 0.0 K/mm3 (0.0-0.1) 06/10/16 04:34 Seg Neutrophils % 77.4 % (40.0-70.0) H 06/10/16 04:34 Seg Neutrophils # 6.6 K/mm3 (1.8-7.7) 06/10/16 04:34 PT 14.7 Sec. (12.2-14.9) 06/10/16 04:34 INR 1.16 (0.87-1.13) H 06/10/16 04:34 APTT 25.6 Sec. (24.2-36.6) 06/08/16 02:01 D-Dimer 1494.82 ng/mlDDU (0-234) H 06/08/16 04:35 POC ABG pH 7.504 (7.35-7.45) H 06/09/16 04:55 POC ABG pCO2 41.1 (35-45) 06/09/16 04:55 POC ABG pO2 259 (80-105) H 06/09/16 04:55 POC ABG HCO3 32.4 06/09/16 04:55 POC ABG Total CO2 34 06/09/16 04:55 POC ABG O2 Sat 100 06/09/16 04:55 POC ABG Base Excess 9 06/09/16 04:55 FiO2 60 % 06/08/16 08:51 Sodium 145 mmol/L (137-145) 06/10/16 04:34 Potassium 4.4 mmol/L (3.6-5.0) 06/10/16 04:34 Chloride 100.8 mmol/L (98-107) 06/10/16 04:34 Carbon Dioxide 25 mmol/L (22-30) 06/10/16 04:34 Anion Gap 24 mmol/L 06/10/16 04:34 BUN 70 mg/dL (9-20) H 06/10/16 04:34 Creatinine 12.2 mg/dL (0.8-1.5) H 06/10/16 04:34 Estimated GFR 5 ml/min 06/10/16 04:34 BUN/Creatinine Ratio 5.73 % 06/10/16 04:34 Glucose 122 mg/dL (75-100) H 06/10/16 04:34 POC Glucose 98 (70-105) 06/10/16 10:02 Lactic Acid 0.6 mmol/L (0.7-2.0) L 06/08/16 05:45 Calcium 8.4 mg/dL (8.4-10.2) 06/10/16 04:34 Phosphorus 5.9 mg/dL (2.5-4.5) H 06/09/16 04:00 Magnesium 1.8 mg/dL (1.7-2.3) 06/09/16 04:00 Total Bilirubin 0.4 mg/dL (0.1-1.2) 06/09/16 04:00 Direct Bilirubin < 0.2 mg/dL (0-0.2) 06/09/16 04:00 Indirect Bilirubin 0.2 mg/dL 06/09/16 04:00 AST 34 units/L (5-40) 06/09/16 04:00 ALT 44 units/L (7-56) 06/09/16 04:00 Alkaline Phosphatase 38 units/L (35-129) 06/09/16 04:00 Total Creatine Kinase 418 units/L (55-170) H 06/08/16 10:22 CK-MB (CK-2) 4.8 ng/mL (0.0-4.0) H 06/08/16 10:22 CK-MB (CK-2) Rel Index 1.1 (0-4) 06/08/16 10:22 Troponin T 0.143 ng/mL (0.00-0.029) H* D 06/08/16 10:22 NT-Pro-B Natriuret Pep 51243 pg/mL (0-450) H 06/08/16 02:01 Total Protein 6.2 g/dL (6.3-8.2) L D 06/09/16 04:00 Albumin 3.0 g/dL (3.9-5) L 06/09/16 04:00 Albumin/Globulin Ratio 0.9 % 06/09/16 04:00 Triglycerides 45 mg/dL (2-149) 06/08/16 04:35 Cholesterol 148 mg/dL (50-199) 06/08/16 04:35 LDL Cholesterol Direct 49 mg/dL (50-130) L 06/08/16 04:35 HDL Cholesterol 90 mg/dL (40-59) H 06/08/16 04:35 Cholesterol/HDL Ratio 1.64 % 06/08/16 04:35
--- NOTE | 2016-06-10 12:04 | Progress Note ---
Assessment and Plan 50 y/o male with acute hypoxic respiratory failure most likely secondary to pulmonary edema. 1. Off oxygen and stable. Will sign off from a pulmonary standpoint. 2. SHould have HD today, based on renal schedule. . Subjective Date of service: 06/10/16 Principal diagnosis: CHF Interval history: No acute events. Successful extubation on yesterday. Wants his lunch Objective Vital Signs - 12hr 06/10/16 06/10/16 06/10/16 00:30 01:00 01:30 Temperature Pulse Rate 98 H 97 H 97 H Respiratory 25 H 21 25 H Rate Blood Pressure 137/78 135/69 138/75 O2 Sat by Pulse 96 95 91 Oximetry 06/10/16 06/10/16 06/10/16 02:00 02:30 03:00 Temperature Pulse Rate 95 H 96 H 95 H Respiratory 24 21 21 Rate Blood Pressure 142/74 140/74 135/73 O2 Sat by Pulse 89 91 91 Oximetry 06/10/16 06/10/16 06/10/16 03:30 04:00 04:30 Temperature 98.3 F Pulse Rate 94 H 95 H 91 H Respiratory 23 28 H 22 Rate Blood Pressure 137/74 141/77 135/79 O2 Sat by Pulse 91 91 90 Oximetry 06/10/16 06/10/16 06/10/16 05:00 05:30 06:00 Temperature Pulse Rate 94 H 93 H 93 H Respiratory 16 18 22 Rate Blood Pressure 150/85 143/81 138/76 O2 Sat by Pulse 95 97 96 Oximetry 06/10/16 06/10/16 06/10/16 06:30 07:00 08:00 Temperature 97.7 F Pulse Rate 96 H 94 H Respiratory 21 24 Rate Blood Pressure 144/81 131/66 O2 Sat by Pulse 91 91 Oximetry 06/10/16 06/10/16 06/10/16 09:48 10:00 10:30 Temperature Pulse Rate 96 H 95 H 95 H Respiratory 9 L 14 21 Rate Blood Pressure 131/66 151/83 153/83 O2 Sat by Pulse 92 94 Oximetry 06/10/16 06/10/16 11:00 11:13 Temperature Pulse Rate 97 H Respiratory 19 Rate Blood Pressure 136/65 158/90 O2 Sat by Pulse Oximetry Constitutional: no acute distress, alert ENT: other (orally intubated) Neck: supple Ascultation: Bilateral: rales, rhonchi Percussion: Bilateral: not dull CBC and BMP: 06/10/16 04:34 06/10/16 04:34 ABG, PT/INR, D-dimer: ABG POC ABG pH 7.504 (7.35-7.45) H 06/09/16 04:55 POC ABG pCO2 41.1 (35-45) 06/09/16 04:55 POC ABG pO2 259 (80-105) H 06/09/16 04:55 POC ABG HCO3 32.4 06/09/16 04:55 POC ABG Total CO2 34 06/09/16 04:55 POC ABG O2 Sat 100 06/09/16 04:55 PT/INR, D-dimer PT 14.7 Sec. (12.2-14.9) 06/10/16 04:34 INR 1.16 (0.87-1.13) H 06/10/16 04:34 D-Dimer 1494.82 ng/mlDDU (0-234) H 06/08/16 04:35 Abnormal lab findings: Abnormal Labs 06/08/16 06/08/16 06/08/16 04:35 04:35 05:45 RBC Hgb Hct Plt Count Lymph % (Auto) Lymph # Seg Neutrophils % INR D-Dimer 1494.82 H POC ABG pH POC ABG pCO2 POC ABG pO2 BUN Creatinine Glucose POC Glucose Lactic Acid 0.6 L Calcium Phosphorus Total Creatine Kinase 419 H CK-MB (CK-2) Troponin T 0.118 H* D Total Protein Albumin LDL Cholesterol Direct 49 L HDL Cholesterol 90 H 06/08/16 06/08/16 06/08/16 06:20 07:41 08:51 RBC Hgb Hct Plt Count Lymph % (Auto) Lymph # Seg Neutrophils % INR D-Dimer POC ABG pH 7.342 L POC ABG pCO2 45.4 H 48.4 H POC ABG pO2 55 L 69 L BUN Creatinine Glucose POC Glucose Lactic Acid Calcium Phosphorus Total Creatine Kinase CK-MB (CK-2) Troponin T 0.118 H* Total Protein Albumin LDL Cholesterol Direct HDL Cholesterol 06/08/16 06/09/16 06/09/16 10:22 04:00 04:00 RBC 2.80 L Hgb 8.2 L Hct 24.3 L D Plt Count 111 L Lymph % (Auto) 11.1 L Lymph # 0.9 L Seg Neutrophils % 82.1 H INR D-Dimer POC ABG pH POC ABG pCO2 POC ABG pO2 BUN 42 H Creatinine 9.0 H Glucose POC Glucose Lactic Acid Calcium 8.1 L Phosphorus 5.9 H Total Creatine Kinase 418 H CK-MB (CK-2) 4.8 H Troponin T 0.143 H* D Total Protein 6.2 L D Albumin 3.0 L LDL Cholesterol Direct HDL Cholesterol 06/09/16 06/10/16 06/10/16 04:55 04:34 04:34 RBC Hgb Hct Plt Count Lymph % (Auto) Lymph # Seg Neutrophils % INR 1.16 H D-Dimer POC ABG pH 7.504 H POC ABG pCO2 POC ABG pO2 259 H BUN 70 H Creatinine 12.2 H Glucose 122 H POC Glucose Lactic Acid Calcium Phosphorus Total Creatine Kinase CK-MB (CK-2) Troponin T Total Protein Albumin LDL Cholesterol Direct HDL Cholesterol 06/10/16 06/10/16 04:34 06:04 RBC 2.93 L Hgb 8.6 L Hct 25.6 L Plt Count 130 L Lymph % (Auto) Lymph # Seg Neutrophils % 77.4 H INR D-Dimer POC ABG pH POC ABG pCO2 POC ABG pO2 BUN Creatinine Glucose POC Glucose 143 H Lactic Acid Calcium Phosphorus Total Creatine Kinase CK-MB (CK-2) Troponin T Total Protein Albumin LDL Cholesterol Direct HDL Cholesterol
[2016-06-10] MEDS ORDERED: NACL 0.9% 1000 ML 2,000 ML ONE (14:00)
[2016-06-10] MEDS ORDERED: NACL 0.9% 1,000 ML IV PRN ×2 (14:02)
--- NOTE | 2016-06-10 15:50 | Cardiac Catherization Report ---
LEFT HEART CATHETERIZATION INDICATION FOR PROCEDURE: Congestive heart failure. ORDERING PHYSICIAN: Maribel Riley M.D. PROCEDURES PERFORMED: 1. Selective left and right coronary angiography. 2. Left ventriculography. 3. Right heart catheterization with hemodynamic measurement and oxygen saturation run. DESCRIPTION OF PROCEDURE: After obtaining written consent, the patient was draped using sterile technique. 1.A 2% lidocaine was injected into the right groin. 2.A 5-[place] vascular sheath was inserted into the right common femoral artery. 3.An 8-[place] vascular sheath was inserted into the right common femoral vein. 4.A 5-[place] JL4 catheter was used to selectively engage the left coronary artery. 5.A 5-[place] JR4 catheter was used to selectively engage the right coronary artery. 6.A 7-[place] Wellman-New catheter was used to measure right-sided hemodynamics and perform an oxygen saturation run. 7.A 5-[place] pigtail catheter was used to perform a left ventriculogram. 8.No complications occurred during the procedure. 9.Hemostasis was achieved at the end of the procedure using 6-[place] Angio-Seal device. SPECIMEN REMOVED: None. ESTIMATED BLOOD LOSS: Minimal. FINDINGS: HEMODYNAMICS: 1. Mean pulmonary capillary wedge pressure was 23 mmHg. 2.Mean pulmonary artery pressure was 33 mmHg with a systolic pulmonary artery pressure of 15 mmHg and the diastolic pulmonary artery pressure of 21 mmHg. 3.The right ventricular systolic pressure was 51 mmHg with a right ventricular end-diastolic pressure of 14 mmHg. 4.The mean right arterial pressure was 9 mmHg. 5.The aortic pressure was 137/82 with a left ventricular systolic pressure was 137 mmHg. The left ventricular end-diastolic pressure was 23 mmHg. 6.The PA saturation was 63%, right ventricular saturation 62%, right atrial saturation is 64%, aortic saturation 85%. 7.Jose Alberto cardiac output is 10.77 L per minute with a cardiac index of 5.41 L per minute per m sq. CARDIAC STRUCTURES: The left ventricle is normal in size. The left ventricular systolic function was hyperdynamic with an ejection fraction greater than 75%. CORONARY ANATOMY: 1. This is a right dominant circulation. 2. The left main is a large caliber vessel that is angiographically normal. 3. The LAD is a large caliber vessel that is angiographically normal. 4. The left circumflex artery is a large caliber vessel that is angiographically normal. 5. The right coronary artery is a large caliber vessel that is angiographically normal. IMPRESSION: 1. Angiographically normal coronary arteries. 2. Hyperdynamic LV with an ejection fraction estimated between 70% and 75%. 3. Evidence of a very elevated cardiac output with a Jose Alberto cardiac output of 10.77 L per minute and moderate pulmonary arterial hypertension. This is likely due to a heavy shunt across the atrial vent and the arteriovenous fistula. 4. Evidence of elevated left and right-sided filling pressure. 5. No evidence of an intracardiac shunt. RECOMMENDATIONS: 1.Continue current medical therapy. 2.Obtain a vascular consultation to evaluate the AV fistula and see if any resizing of this fistula is needed to prevent high output heart failure in the future. JOB# [id number] JAVED/EDOUARD
--- NOTE | 2016-06-10 17:51 | Consultation ---
History of Present Illness - Reason for Consult Consult date: 06/10/16 High Output Congestive Heart Failure Requesting physician: JUAN CARLOS LOONEY - History of Present Illness This patient is a 50-year-old male with end-stage renal disease that was admitted via the emergency room on 05/30/2016 due to shortness of breath. He was found to be in acute respiratory distress requiring intubation. He was fluid overload. Cardiology was consulted, and workup initiated. It was suspected that the patient had high output heart failure with concerns that this was related to his right forearm AV fistula. A vascular surgery consult has been requested to further evaluate. Past History Past Medical History: dialysis, ESRD, hypertension Past Surgical History: Other (right forearm radiocephalic AV fistula created 2 years ago. Patient was unaware of the surgeon's name) Social history: other (not listed) Family history: other (not listed) Medications and Allergies Allergies Allergy/AdvReac Type Severity Reaction Status Date / Time lisinopril Allergy Angioedema Verified 07/28/15 15:30 Home Medications Medication Instructions Recorded Confirmed Last Taken Type Cinacalcet [Sensipar] 30 mg PO QDAY 11/06/15 06/08/16 02/23/16 History Sevelamer Carbonate [Renvela] 800 mg PO AC 11/06/15 06/08/16 02/23/16 History Vit B Cplx #11/FA/C/Biot/Zn Ox 800 each PO DAILY 12/11/15 06/08/16 02/23/16 History [Dialyvite with Zinc Tablet] Carvedilol [Coreg] 25 mg PO BID #60 tablet 12/17/15 06/08/16 02/23/16 Rx hydrALAZINE [Apresoline TAB] 100 mg PO TID #90 tab 12/17/15 06/08/16 02/23/16 Rx NIFEdipine XL [Procardia Xl] 90 mg PO QDAY #30 tablet 02/25/16 06/08/16 Unknown Rx Active Meds: Active Medications Acetaminophen (Tylenol) 650 mg PO Q6H PRN PRN Reason: Pain Al Hydrox/Mg Hydrox/Simethicone (Alum-Mag Hydrox-Simeth [id number]/5ml) 30 ml PO Q4H PRN PRN Reason: Indigestion Aspirin (Baby Aspirin) 81 mg PO QDAY [facility] Last Admin: 06/10/16 07:38 Dose: 81 mg Bisacodyl (Dulcolax) 10 mg TX QDAY PRN PRN Reason: constipation unrelieved by MOM Carvedilol (Coreg) 25 mg PO BID [facility] Last Admin: 06/10/16 11:13 Dose: 25 mg Cinacalcet (Sensipar) 30 mg PO QDAY [facility] Last Admin: 06/10/16 11:11 Dose: 30 mg Enoxaparin Sodium (Lovenox) 30 mg SUB-Q DAILY [facility] Last Admin: 06/10/16 11:14 Dose: 30 mg Famotidine (Pepcid) 20 mg PO DAILY [facility] Last Admin: 06/10/16 11:12 Dose: 20 mg Hydralazine HCl (Apresoline) 100 mg PO TID [facility] Last Admin: 06/10/16 14:00 Dose: Not Given Hydralazine HCl (Apresoline) 10 mg IV Q4HR PRN PRN Reason: SBP > 160 Last Admin: 06/09/16 16:39 Dose: 10 mg Hydrophilic Ointment (Vaseline Lip Therapy) 1 applic TP Q2HR PRN PRN Reason: Dry Lips Sodium Chloride (Nacl 0.9%) 1,000 mls @ 999 mls/hr IV XIMENA PRN PRN Reason: Hypotension Sodium Chloride (Nacl 0.9%) 1,000 mls @ 999 mls/hr IV XIMENA PRN PRN Reason: Hypotension Multi-Ingred Cream/Lotion/Oil/Oint (Artificial Tears Ophth Oint) 1 applic OU Q4HR PRN PRN Reason: Dry Eye(s) Nifedipine (Procardia Xl) 90 mg PO QDAY [facility] Last Admin: 06/10/16 11:12 Dose: 90 mg Ondansetron HCl (Zofran) 4 mg IV Q8H PRN PRN Reason: N/V unrelieved by Reglan Sevelamer Carbonate (Renvela) 800 mg PO [facility] Last Admin: 06/10/16 17:00 Dose: 800 mg Valsartan (Diovan) 160 mg PO BID [facility] Last Admin: 06/10/16 11:13 Dose: 160 mg Review of Systems All systems: negative Exam - Constitutional Vitals: Temp Pulse Resp BP Pulse Ox 97.6 F 75 25 H 149/79 96 06/10/16 16:35 06/10/16 16:35 06/10/16 16:35 06/10/16 16:35 06/10/16 16:35 General appearance: Present: no acute distress - EENT Eyes: Present: EOM intact ENT: hearing intact - Neck Neck: Present: supple - Respiratory Respiratory effort: normal (unlabored at rest on room air) - Extremities Extremities: no ischemia, normal temperature, abnormal (he has a right forearm fistula which is presently cannulated and on hemodialysis.) - Psychiatric Psychiatric: appropriate mood/affect, intact judgment & insight, cooperative - Neurologic Neurologic: no focal deficits Results - Labs CBC & Chem 7: 06/10/16 04:34 06/10/16 04:34 Labs: Abnormal lab results 06/10/16 06/10/16 06/10/16 Range/Units 04:34 04:34 04:34 RBC 2.93 L (3.65-5.03) M/mm3 Hgb 8.6 L (11.8-15.2) gm/dl Hct 25.6 L (35.5-45.6) % Plt Count 130 L (140-440) K/mm3 Seg Neutrophils % 77.4 H (40.0-70.0) % INR 1.16 H (0.87-1.13) BUN 70 H (9-20) mg/dL Creatinine 12.2 H (0.8-1.5) mg/dL Glucose 122 H (75-100) mg/dL POC Glucose (70-105) 06/10/16 Range/Units 06:04 RBC (3.65-5.03) M/mm3 Hgb (11.8-15.2) gm/dl Hct (35.5-45.6) % Plt Count (140-440) K/mm3 Seg Neutrophils % (40.0-70.0) % INR (0.87-1.13) BUN (9-20) mg/dL Creatinine (0.8-1.5) mg/dL Glucose (75-100) mg/dL POC Glucose 143 H (70-105) Assessment and Plan This patient presented to the emergency room, and subsequently required intubation due to acute respiratory failure. He was found to be in fluid overload. He has been evaluated by cardiology. High output congestive heart failure is suspected. He has an AV fistula in his right forearm. This was felt to be a potential source of his heart failure. A Vascular surgery consult was requested to further evaluate. Noninvasive fistula ultrasound was performed and this revealed volume flows up to 1896 ml/ min. This could represent a potential source of his heart failure. We discussed potential treatments including: Banding of the AV fistula/ligation of the AV fistula. We went over the risks benefits and alternatives in detail ( including but not limited to fistula thrombosis and need for possible permacath) . The patient voiced concerns. He did not want to proceed without discussing this with his regional safety manager. He believes that he will be discharged in the next 1-2 days. Advised patient to discuss this further with cardiology as the next heart failure event could result in significant morbidity and mortality. If he is discharged then he can follow with his regional safety manager who can refer him on to vascular surgery if felt warranted. If he remains hospitalized, his condition can be monitored. We will be available for intervention if needed. - Patient Problems (1) High output heart failure Current Visit: Yes Status: Acute (2) End stage renal disease on dialysis Current Visit: Yes Status: Chronic (3) Pulmonary edema, acute Current Visit: No Status: Chronic
[2016-06-11 05:12] LABS: Basophils % (Auto) 0.6 % (0.0-1.8); Eosinophils % (Auto) 2.5 % (0.0-4.3); Hematocrit 25.7 % (35.5-45.6); Hemoglobin 8.8 gm/dl (11.8-15.2); Mean Corpuscular HGB Conc 34 % (32-34); Mean Corpuscular Hemoglobin 30 pg (28-32); Mean Corpuscular Volume 87 fl (84-94); Platelet Count 138 K/mm3 (140-440); Red Blood Count 2.94 M/mm3 (3.65-5.03); Red Cell Distribution Width 15.2 % (13.2-15.2); White Blood Count 7.2 K/mm3 (4.5-11.0)
[2016-06-11 05:33] LABS: Calcium 8.4 mg/dL (8.4-10.2); Chloride 99.2 mmol/L (98-107); Potassium 4.6 mmol/L (3.6-5.0)
[2016-06-11 05:38] LABS: BUN/Creatinine Ratio 4.72
--- NOTE | 2016-06-11 07:01 | Progress Note ---
Assessment and Plan - Patient Problems (1) Hyperkalemia Current Visit: Yes Status: Acute Plan to address problem: Hyperkalemia in the setting of ESRD. Improved with Hemodialysis. (2) End stage renal disease on dialysis Current Visit: Yes Status: Chronic Plan to address problem: Continue Hemodialysis on MWFs. Patient was last dialyzed yesterday. (3) Pulmonary edema Current Visit: Yes Status: Acute Qualifiers: Chronicity: acute Qualified Code(s): J81.0 - Acute pulmonary edema Plan to address problem: Improved with fluid removal with hemodialysis. Recurrent CHF with pulmonary edema secondary to high output AVF. Cardiology following. 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 (4) Respiratory failure Current Visit: Yes Status: Acute Qualifiers: Chronicity: acute Respiratory failure complication: hypoxia Qualified Code(s): J96.01 - Acute respiratory failure with hypoxia Plan to address problem: Secondary to pulmonary edema. S/p extubated. (5) Hypertension Current Visit: No Status: Chronic Qualifiers: Hypertension type: H Plan to address problem: BP is fair. (6) Anemia Current Visit: No Status: Chronic Qualifiers: Anemia type: A Iron deficiency anemia type: I Vitamin B12 deficiency anemia type: V Folate deficiency anemia type: F Bone marrow failure anemia type: B Hemolytic anemia type: H Other causes of anemia: chronic disease, kidney Qualified Code(s): N18.9 - Chronic kidney disease, unspecified; D63.1 - Anemia in chronic kidney disease Plan to address problem: Epogen with hemodialysis. Subjective Date of service: 06/11/16 Principal diagnosis: CHF Interval history: Patient is feeling better. Objective - Vital Signs Vital signs: Vital Signs - 12hr 06/10/16 06/10/16 06/10/16 20:00 22:35 22:36 Temperature 98.1 F Pulse Rate 77 77 Pulse Rate [ 75 From Monitor] Respiratory 18 Rate Blood Pressure 163/87 163/87 Blood Pressure 155/84 [Right Arm] O2 Sat by Pulse 98 Oximetry 06/11/16 06/11/16 00:00 05:39 Temperature 98.4 F 98.3 F Pulse Rate Pulse Rate [ 72 70 From Monitor] Respiratory 18 18 Rate Blood Pressure Blood Pressure 156/77 187/93 [Right Arm] O2 Sat by Pulse 98 98 Oximetry - General Appearance General appearance: well-nourished, appears stated age, obese, other (no distress) EENT: ATNC, PERRL, mucous membranes moist, hearing intact, vision intact Neck: no carotid bruit, supple Respiratory: Present: Clear to Ascultation Cardiology: regular, S1S2, no murmurs Gastrointestinal: normoactive bowel sounds, no tenderness, no distended Integumentary: no rash, warm and dry Neurologic: no focal deficit, no asterixis, alert and oriented x3, CN 3-12 intact Musculoskeletal: other (right UE swollen, right FA AVF) Psychiatric: mood/affect appropriate, cooperative - Lab 06/11/16 04:16 06/11/16 04:16 Most recent lab results Calcium 8.4 mg/dL (8.4-10.2) 06/11/16 04:16 Phosphorus 5.9 mg/dL (2.5-4.5) H 06/09/16 04:00 Magnesium 1.8 mg/dL (1.7-2.3) 06/09/16 04:00
[2016-06-11] MEDS: APRESOLINE PO SCH ×3 (08:06→20:34)
[2016-06-11] MEDS: RENVELA PO SCH ×3 (08:11→16:49)
[2016-06-11] MEDS: PROCARDIA XL PO SCH (09:37)
[2016-06-11] MEDS: DIOVAN PO SCH ×2 (09:37→22:54)
[2016-06-11] MEDS: SENSIPAR PO SCH (09:37)
[2016-06-11] MEDS: COREG PO SCH ×2 (09:37→22:55)
[2016-06-11] MEDS: BABY ASPIRIN PO SCH (09:37)
[2016-06-11] MEDS: LOVENOX SUB-Q SCH (09:38)
[2016-06-11] MEDS: PEPCID PO SCH (09:38)
--- NOTE | 2016-06-11 11:31 | Progress Note ---
Subjective Date of service: 06/11/16 Principal diagnosis: CHF Interval history: Acute respiratory failure secondary to volume overload and pulmonary edema s/p extubation ESRD on dialysis Hyperdynamic LV with high cardiac output Chronic elevated troponin Normal coronaries by [facility] Hypertension Thallium stress test 10/2015 was negative. Echocardiogram 02/2016 demonstrated normal left ventricular systolic function with ejection fraction 55%, at least moderate concentric left ventricular hypertrophy was noted. Recommendations: Continue current management, vascular to evaluate pt Objective Vital Signs Temp Pulse Pulse Pulse Pulse Resp BP 06/11/16 07:50 98.3 F 68 20 06/11/16 05:39 98.3 F 70 18 06/11/16 00:00 98.4 F 72 18 06/10/16 22:36 77 163/87 06/10/16 22:35 77 163/87 06/10/16 20:00 98.1 F 75 18 06/10/16 17:46 98.5 F 75 18 168/90 06/10/16 16:35 97.6 F 75 25 H 149/79 06/10/16 16:30 75 20 145/83 06/10/16 16:15 76 145/83 06/10/16 16:00 97.8 F 74 21 152/87 06/10/16 15:45 75 152/87 06/10/16 15:30 74 22 162/81 06/10/16 15:15 84 162/81 06/10/16 15:00 86 22 160/91 06/10/16 14:45 86 167/91 06/10/16 14:30 89 22 166/91 06/10/16 14:15 89 163/92 06/10/16 14:00 89 22 166/90 06/10/16 13:45 92 H 158/90 06/10/16 13:30 92 H 26 H 173/91 06/10/16 13:15 93 H 173/91 06/10/16 13:00 94 H 25 H 157/84 06/10/16 12:50 95 H 175/88 06/10/16 12:45 96 H 157/84 06/10/16 12:30 97 H 18 159/86 06/10/16 12:25 98.1 F 95 H 19 159/87 06/10/16 12:00 98.1 F 98 H 28 H 155/84 BP BP Pulse Ox Pulse Ox 06/11/16 07:50 198/95 97 06/11/16 05:39 187/93 98 06/11/16 00:00 156/77 98 06/10/16 22:36 06/10/16 22:35 06/10/16 20:00 155/84 98 06/10/16 17:46 93 06/10/16 16:35 96 06/10/16 16:30 95 06/10/16 16:15 06/10/16 16:00 98 06/10/16 15:45 06/10/16 15:30 96 06/10/16 15:15 06/10/16 15:00 06/10/16 14:45 06/10/16 14:30 06/10/16 14:15 06/10/16 14:00 96 06/10/16 13:45 06/10/16 13:30 95 06/10/16 13:15 06/10/16 13:00 96 06/10/16 12:50 06/10/16 12:45 06/10/16 12:30 93 06/10/16 12:25 97 06/10/16 12:00 92 - Physical Examination General: No Apparent Distress Neck: Positive: neck supple, trachea midline Cardiac: Positive: Reg Rate and Rhythm, S1/S2 Lungs: Positive: Normal Exam - Labs and Meds CBC 06/11/16 Range/Units 04:16 WBC 7.2 (4.5-11.0) K/mm3 RBC 2.94 L (3.65-5.03) M/mm3 Hgb 8.8 L (11.8-15.2) gm/dl Hct 25.7 L (35.5-45.6) % Plt Count 138 L (140-440) K/mm3 Lymph # 1.1 L (1.2-5.4) K/mm3 [place] # 0.5 (0.0-0.8) K/mm3 Eos # 0.2 (0.0-0.4) K/mm3 Baso # 0.0 (0.0-0.1) K/mm3 Comprehensive Metabolic Panel 06/11/16 Range/Units 04:16 Sodium 143 (137-145) mmol/L Potassium 4.6 (3.6-5.0) mmol/L Chloride 99.2 (98-107) mmol/L Carbon Dioxide 25 (22-30) mmol/L BUN 43 H (9-20) mg/dL Creatinine 9.1 H (0.8-1.5) mg/dL Glucose 90 (75-100) mg/dL Calcium 8.4 (8.4-10.2) mg/dL - Imaging and Cardiology EKG: image reviewed
--- NOTE | 2016-06-11 16:11 | Progress Note ---
Assessment and Plan Assessment and plan: --Acute hypoxic respiratory failure status post extubation Saturating well on room air --End-stage renal disease on hemodialysis HD per schedule --Chronic anemia secondary to end-stage renal disease low Stable H&H --Non-ST elevation [place]/positive troponins , status post coronary angiogram Normal coronaries --Malignant hypertension ; Blood pressures reasonable control, continue current antihypertensives and when necessary medications --DVT prophylaxis,With heparin Consults and recommendations noted and appreciated Vascular surgery recommendations noted Discharge in 1-2 days if stable Plan of care discussed with the patient as well as his nurse History Interval history: Patient seen and evaluated medical records reviewed Patient feels better denies any chest pain or shortness of breath Alert awake oriented 3 not in acute distress Vital signs reviewed stable Hospitalist Physical - Constitutional Vitals: Temp Pulse Resp BP Pulse Ox 98.3 F 67 20 198/95 97 06/11/16 07:50 06/11/16 11:35 06/11/16 07:50 06/11/16 07:50 06/11/16 10:00 General appearance: Present: no acute distress, well-nourished - EENT Eyes: Present: PERRL, EOM intact - Neck Neck: Present: supple, normal ROM - Respiratory Respiratory effort: normal Respiratory: bilateral: diminished, rhonchi, negative: rales - Cardiovascular Rhythm: regular Heart Sounds: Present: S1 & S2 - Extremities Extremities: no ischemia, pulses intact, pulses symmetrical Peripheral Pulses: within normal limits - Abdominal General gastrointestinal: soft, non-tender, non-distended, normal bowel sounds - Integumentary Integumentary: Present: clear, warm - Psychiatric Psychiatric: appropriate mood/affect, cooperative - Neurologic Neurologic: CNII-XII intact, moves all extremities Results - Labs CBC & Chem 7: 06/11/16 04:16 06/11/16 04:16 Labs: Laboratory Last Values WBC 7.2 K/mm3 (4.5-11.0) 06/11/16 04:16 RBC 2.94 M/mm3 (3.65-5.03) L 06/11/16 04:16 Hgb 8.8 gm/dl (11.8-15.2) L 06/11/16 04:16 Hct 25.7 % (35.5-45.6) L 06/11/16 04:16 MCV 87 fl (84-94) 06/11/16 04:16 MCH 30 pg (28-32) 06/11/16 04:16 MCHC 34 % (32-34) 06/11/16 04:16 RDW 15.2 % (13.2-15.2) 06/11/16 04:16 Plt Count 138 K/mm3 (140-440) L 06/11/16 04:16 Lymph % (Auto) 16.0 % (13.4-35.0) 06/11/16 04:16 [place]rio % (Auto) 6.6 % (0.0-7.3) 06/11/16 04:16 Eos % (Auto) 2.5 % (0.0-4.3) 06/11/16 04:16 Baso % (Auto) 0.6 % (0.0-1.8) 06/11/16 04:16 Lymph # 1.1 K/mm3 (1.2-5.4) L 06/11/16 04:16 [place] # 0.5 K/mm3 (0.0-0.8) 06/11/16 04:16 Eos # 0.2 K/mm3 (0.0-0.4) 06/11/16 04:16 Baso # 0.0 K/mm3 (0.0-0.1) 06/11/16 04:16 Seg Neutrophils % 74.3 % (40.0-70.0) H 06/11/16 04:16 Seg Neutrophils # 5.3 K/mm3 (1.8-7.7) 06/11/16 04:16 PT 14.7 Sec. (12.2-14.9) 06/10/16 04:34 INR 1.16 (0.87-1.13) H 06/10/16 04:34 APTT 25.6 Sec. (24.2-36.6) 06/08/16 02:01 D-Dimer 1494.82 ng/mlDDU (0-234) H 06/08/16 04:35 POC ABG pH 7.504 (7.35-7.45) H 06/09/16 04:55 POC ABG pCO2 41.1 (35-45) 06/09/16 04:55 POC ABG pO2 259 (80-105) H 06/09/16 04:55 POC ABG HCO3 32.4 06/09/16 04:55 POC ABG Total CO2 34 06/09/16 04:55 POC ABG O2 Sat 100 06/09/16 04:55 POC ABG Base Excess 9 06/09/16 04:55 FiO2 60 % 06/08/16 08:51 Sodium 143 mmol/L (137-145) 06/11/16 04:16 Potassium 4.6 mmol/L (3.6-5.0) 06/11/16 04:16 Chloride 99.2 mmol/L (98-107) 06/11/16 04:16 Carbon Dioxide 25 mmol/L (22-30) 06/11/16 04:16 Anion Gap 23 mmol/L 06/11/16 04:16 BUN 43 mg/dL (9-20) H 06/11/16 04:16 Creatinine 9.1 mg/dL (0.8-1.5) H 06/11/16 04:16 Estimated GFR 8 ml/min 06/11/16 04:16 BUN/Creatinine Ratio 4.72 % 06/11/16 04:16 Glucose 90 mg/dL (75-100) 06/11/16 04:16 POC Glucose 98 (70-105) 06/10/16 10:02 Lactic Acid 0.6 mmol/L (0.7-2.0) L 06/08/16 05:45 Calcium 8.4 mg/dL (8.4-10.2) 06/11/16 04:16 Phosphorus 5.9 mg/dL (2.5-4.5) H 06/09/16 04:00 Magnesium 1.8 mg/dL (1.7-2.3) 06/09/16 04:00 Total Bilirubin 0.4 mg/dL (0.1-1.2) 06/09/16 04:00 Direct Bilirubin < 0.2 mg/dL (0-0.2) 06/09/16 04:00 Indirect Bilirubin 0.2 mg/dL 06/09/16 04:00 AST 34 units/L (5-40) 06/09/16 04:00 ALT 44 units/L (7-56) 06/09/16 04:00 Alkaline Phosphatase 38 units/L (35-129) 06/09/16 04:00 Total Creatine Kinase 418 units/L (55-170) H 06/08/16 10:22 CK-MB (CK-2) 4.8 ng/mL (0.0-4.0) H 06/08/16 10:22 CK-MB (CK-2) Rel Index 1.1 (0-4) 06/08/16 10:22 Troponin T 0.143 ng/mL (0.00-0.029) H* D 06/08/16 10:22 NT-Pro-B Natriuret Pep 64931 pg/mL (0-450) H 06/08/16 02:01 Total Protein 6.2 g/dL (6.3-8.2) L D 06/09/16 04:00 Albumin 3.0 g/dL (3.9-5) L 06/09/16 04:00 Albumin/Globulin Ratio 0.9 % 06/09/16 04:00 Triglycerides 45 mg/dL (2-149) 06/08/16 04:35 Cholesterol 148 mg/dL (50-199) 06/08/16 04:35 LDL Cholesterol Direct 49 mg/dL (50-130) L 06/08/16 04:35 HDL Cholesterol 90 mg/dL (40-59) H 06/08/16 04:35 Cholesterol/HDL Ratio 1.64 % 06/08/16 04:35
--- NOTE | 2016-06-11 16:28 | Progress Note ---
Assessment and Plan 50-year-old male with diagnosis of high output cardiac failure with right upper extremity Aiyana AV fistula. Explained concept of high output cardiac failure to patient. Nephrology and cardiology will discuss this further. Told patient that I do not recommend discharge until cardiology and nephrology make a decision. Subjective Date of service: 06/11/16 Principal diagnosis: CHF Interval history: Patient doing well. Right upper extremity Aiyana AV fistula in a left-handed patient. Discussed possible banding with patient. Objective - Constitutional Vitals: Vital Signs - 12hr 06/11/16 06/11/16 06/11/16 05:39 07:50 10:00 Temperature 98.3 F 98.3 F Pulse Rate Pulse Rate [ 70 From Monitor] Pulse Rate [ 68 Left Radial] Respiratory 18 20 Rate Blood Pressure 198/95 [Left Arm] Blood Pressure 187/93 [Right Arm] O2 Sat by Pulse 98 97 97 Oximetry 06/11/16 11:35 Temperature Pulse Rate 67 Pulse Rate [ From Monitor] Pulse Rate [ Left Radial] Respiratory Rate Blood Pressure [Left Arm] Blood Pressure [Right Arm] O2 Sat by Pulse Oximetry General appearance: Present: no acute distress - EENT Eyes: EOM intact ENT: hearing intact - Respiratory Respiratory effort: normal Extremities: normal temperature, normal color, abnormal (Aiyana with excellent thrill and approximately 10 cm of aneurysmal dilatation near the wrist) - Psychiatric Psychiatric: appropriate mood/affect, cooperative - Labs CBC & Chem 7: 06/11/16 04:16 06/11/16 04:16 Labs: Abnormal lab results 06/11/16 06/11/16 Range/Units 04:16 04:16 RBC 2.94 L (3.65-5.03) M/mm3 Hgb 8.8 L (11.8-15.2) gm/dl Hct 25.7 L (35.5-45.6) % Plt Count 138 L (140-440) K/mm3 Lymph # 1.1 L (1.2-5.4) K/mm3 Seg Neutrophils % 74.3 H (40.0-70.0) % BUN 43 H (9-20) mg/dL Creatinine 9.1 H (0.8-1.5) mg/dL
[2016-06-12] MEDS: APRESOLINE IV PRN ×2 (00:24→06:26)
--- NOTE | 2016-06-12 07:53 | Progress Note ---
Assessment and Plan - Patient Problems (1) Hyperkalemia Current Visit: Yes Status: Acute Plan to address problem: Hyperkalemia in the setting of ESRD. Improved with Hemodialysis. (2) End stage renal disease on dialysis Current Visit: Yes Status: Chronic Plan to address problem: Continue Hemodialysis on MWFs. Patient was last dialyzed 2 days ago. (3) Pulmonary edema Current Visit: Yes Status: Acute Qualifiers: Chronicity: acute Qualified Code(s): J81.0 - Acute pulmonary edema Plan to address problem: Improved with fluid removal with hemodialysis. Recurrent CHF with pulmonary edema secondary to high output AVF. The cause for recurrent flash pulmonary edema is unclear at this point. 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 ?role of high flow AVF in recurrent CHF. Cardiology following. (4) Respiratory failure Current Visit: Yes Status: Acute Qualifiers: Chronicity: acute Respiratory failure complication: hypoxia Qualified Code(s): J96.01 - Acute respiratory failure with hypoxia Plan to address problem: Secondary to pulmonary edema. S/p extubated. (5) Hypertension Current Visit: No Status: Chronic Qualifiers: Hypertension type: H Plan to address problem: Increase Nifedipine to BID. (6) Anemia Current Visit: No Status: Chronic Qualifiers: Anemia type: A Iron deficiency anemia type: I Vitamin B12 deficiency anemia type: V Folate deficiency anemia type: F Bone marrow failure anemia type: B Hemolytic anemia type: H Other causes of anemia: chronic disease, kidney Qualified Code(s): N18.9 - Chronic kidney disease, unspecified; D63.1 - Anemia in chronic kidney disease Plan to address problem: Epogen with hemodialysis. Subjective Date of service: 06/12/16 Principal diagnosis: CHF Interval history: No new complaint. Objective - Vital Signs Vital signs: Vital Signs - 12hr 06/11/16 06/11/16 06/11/16 19:56 22:54 22:55 Temperature 98.1 F Pulse Rate 89 89 Pulse Rate [ Left Radial] Pulse Rate [ 88 Right Radial] Respiratory 21 Rate Blood Pressure 172/89 172/89 Blood Pressure 156/85 [Left Arm] O2 Sat by Pulse 94 Oximetry 06/11/16 06/12/16 06/12/16 22:56 00:00 00:24 Temperature 98.2 F Pulse Rate 89 89 Pulse Rate [ Left Radial] Pulse Rate [ 89 Right Radial] Respiratory 20 Rate Blood Pressure 184/97 Blood Pressure 184/97 [Left Arm] O2 Sat by Pulse 95 Oximetry 06/12/16 06/12/16 06/12/16 01:24 05:00 06:26 Temperature 98.5 F Pulse Rate 87 Pulse Rate [ 89 Left Radial] Pulse Rate [ 87 Right Radial] Respiratory 20 Rate Blood Pressure 194/106 Blood Pressure 189/103 194/106 [Left Arm] O2 Sat by Pulse 94 Oximetry 06/12/16 07:39 Temperature Pulse Rate 86 Pulse Rate [ Left Radial] Pulse Rate [ Right Radial] Respiratory Rate Blood Pressure Blood Pressure [Left Arm] O2 Sat by Pulse Oximetry - General Appearance General appearance: well-developed, well-nourished, appears stated age, obese EENT: ATNC, PERRL, mucous membranes moist, hearing intact, vision intact Neck: supple Respiratory: Present: Clear to Ascultation Cardiology: regular, S1S2, no murmurs Gastrointestinal: normoactive bowel sounds, no tenderness, no distended Integumentary: no rash Neurologic: no focal deficit, no asterixis, alert and oriented x3, CN 3-12 intact Musculoskeletal: other (right UE edematous, right FA AVF) Psychiatric: mood/affect appropriate, cooperative - Lab 06/11/16 04:16 06/11/16 04:16 Most recent lab results Calcium 8.4 mg/dL (8.4-10.2) 06/11/16 04:16 Phosphorus 5.9 mg/dL (2.5-4.5) H 06/09/16 04:00 Magnesium 1.8 mg/dL (1.7-2.3) 06/09/16 04:00
[2016-06-12] MEDS ORDERED: CATAPRES PO SCH (10:00)
[2016-06-12] MEDS: BABY ASPIRIN PO SCH ×2 (10:23→10:32)
[2016-06-12] MEDS: COREG PO SCH ×2 (10:24→22:28)
[2016-06-12] MEDS: PROCARDIA XL PO SCH ×2 (10:24→22:29)
[2016-06-12] MEDS: SENSIPAR PO SCH (10:24)
[2016-06-12] MEDS: LOVENOX SUB-Q SCH (10:24)
[2016-06-12] MEDS: PEPCID PO SCH (10:24)
[2016-06-12] MEDS: DIOVAN PO SCH ×2 (10:32→22:28)
[2016-06-12] MEDS: RENVELA PO SCH ×3 (10:32→15:54)
[2016-06-12] MEDS: APRESOLINE PO SCH ×3 (10:35→20:44)
--- NOTE | 2016-06-12 11:11 | Progress Note ---
Subjective Date of service: 06/12/16 Principal diagnosis: CHF Interval history: Acute respiratory failure secondary to volume overload and pulmonary edema s/p extubation ESRD on dialysis Hyperdynamic LV with high cardiac output Chronic elevated troponin Normal coronaries by [facility] Hypertension Thallium stress test 10/2015 was negative. Echocardiogram 02/2016 demonstrated normal left ventricular systolic function with ejection fraction 55%, at least moderate concentric left ventricular hypertrophy was noted. Recommendations: Plan discussed with renal, vascular and Dr. Riley The plan is to optimize his blood pressure, it has been uncontrolled. I sat down with pt and discussed his care for 30 minutes. Hopefully, control of blood pressure will prevent flash pulm edema episodes, but if it does not, will have to revisit high-outpt failure from larger AV fistula shunt. Objective Vital Signs Temp Pulse Pulse Pulse Resp BP BP 06/12/16 08:50 98.0 F 84 20 195/107 06/12/16 07:39 86 06/12/16 06:26 87 194/106 06/12/16 05:00 98.5 F 87 20 194/106 06/12/16 01:24 89 189/103 06/12/16 00:24 89 184/97 06/12/16 00:00 98.2 F 89 20 184/97 06/11/16 22:56 89 06/11/16 22:55 89 172/89 06/11/16 22:54 89 172/89 06/11/16 19:56 98.1 F 88 21 156/85 06/11/16 16:20 97.9 F 72 18 150/84 06/11/16 11:35 67 Pulse Ox 06/12/16 08:50 98 06/12/16 07:39 06/12/16 06:26 06/12/16 05:00 94 06/12/16 01:24 06/12/16 00:24 06/12/16 00:00 95 06/11/16 22:56 06/11/16 22:55 06/11/16 22:54 06/11/16 19:56 94 06/11/16 16:20 96 06/11/16 11:35 - Physical Examination General: No Apparent Distress Neck: Positive: neck supple, trachea midline Cardiac: Positive: Reg Rate and Rhythm, S1/S2 Lungs: Positive: Normal Exam - Imaging and Cardiology EKG: image reviewed
--- NOTE | 2016-06-12 12:25 | Progress Note ---
Assessment and Plan Patient appears to have right sided heart failure with high output was secondary to increase venous return from hyperdynamic AV fistula. Duplex scan of AV fistula suggests volume flow varies from 1.9 up to 9 L/m. This is despite a Aiyana AV fistula. Low where it is an entity that I have personally observed and treated several times over the last 20 years. Stability of renovascular hypertension with renal artery stenosis can be within the differential however is my experience and out of others that even if stenotic main renal arteries are documented a presence of dialysis dependent stage V renal insufficiency, the pre- nephron vascular disease includes successful revascularization of the kidney. The Edvin kidney persists with continued hypotension and flash pulmonary edema. Thus the only option to control this syndrome if it is felt to come from the kidneys is bilateral nephrectomy. As his left heart function appears normal to hyperdynamic it seems most appropriate to consider producing the flow through the fistula using banding or ligation or revision technique. This procedure is generally quite successful and carries low morbidity as compared to a nephrectomy. We'll defer to the wisdom of the cardiology service and the nephrology service remain available to band his fistula. Fistulogram will be required prior to any surgical intervention. - Patient Problems (1) High output heart failure Current Visit: Yes Status: Acute Subjective Date of service: 06/12/16 Principal diagnosis: CHF Interval history: No overnight pulmonary edema. Fistula still functioning. Blood pressure still labile. Objective - Exam Narrative Exam: Fistula with pronounced thrill and bruit. - Constitutional Vitals: Vital Signs - 12hr 06/12/16 06/12/16 06/12/16 00:24 01:24 05:00 Temperature 98.5 F Pulse Rate 89 Pulse Rate [ 89 Left Radial] Pulse Rate [ 87 Right Radial] Respiratory 20 Rate Blood Pressure 184/97 Blood Pressure 189/103 194/106 [Left Arm] O2 Sat by Pulse 94 Oximetry 06/12/16 06/12/16 06/12/16 06:26 07:39 08:50 Temperature 98.0 F Pulse Rate 87 86 Pulse Rate [ 84 Left Radial] Pulse Rate [ Right Radial] Respiratory 20 Rate Blood Pressure 194/106 Blood Pressure 195/107 [Left Arm] O2 Sat by Pulse 98 Oximetry 06/12/16 10:00 Temperature Pulse Rate Pulse Rate [ Left Radial] Pulse Rate [ Right Radial] Respiratory Rate Blood Pressure Blood Pressure [Left Arm] O2 Sat by Pulse 97 Oximetry - Labs CBC & Chem 7: 06/11/16 04:16 06/11/16 04:16
--- NOTE | 2016-06-12 17:56 | Progress Note ---
Assessment and Plan Assessment and plan: --End-stage renal disease on hemodialysis Hemodialysis per schedule nephrology following --Acute hypoxic respiratory failure status post extubation Saturating well on room air --High output right-sided heart failure, vascular recommend banding or ligation procedure of the fistula Cardiology nephrology following Patient is still considering --Chronic anemia secondary to end-stage renal disease low Stable H&H --Non-ST elevation [place]/positive troponins , status post coronary angiogram Normal coronaries --Malignant hypertension ; Blood pressures reasonable control, continue current antihypertensives and when necessary medications --DVT prophylaxis,With heparin Consults and recommendations noted and appreciated And new current management Plan of care discussed with the patient as well as his nurse I also discussed with the vascular surgeon History Interval history: Patient seen and evaluated medical records reviewed No new events reported by the nursing staff Vascular planning for procedure, patient is undecided and wants to talk to vascular surgeon and his dairy machine operator farmworker Denies any chest pain or shortness of breath Alert awake oriented 3 not in acute distress Hospitalist Physical - Constitutional Vitals: Temp Pulse Resp BP Pulse Ox 97.8 F 82 18 181/105 98 06/12/16 12:10 06/12/16 12:10 06/12/16 12:10 06/12/16 12:10 06/12/16 12:10 General appearance: Present: no acute distress, well-nourished - EENT Eyes: Present: PERRL, EOM intact - Neck Neck: Present: supple, normal ROM - Respiratory Respiratory effort: normal Respiratory: bilateral: diminished, negative: rales, rhonchi, wheezing - Cardiovascular Rhythm: regular Heart Sounds: Present: S1 & S2 - Extremities Extremities: no ischemia, pulses intact, pulses symmetrical, abnormal (right upper extremity swelling) Peripheral Pulses: within normal limits - Abdominal General gastrointestinal: soft, non-tender, non-distended, normal bowel sounds - Integumentary Integumentary: Present: clear, warm - Psychiatric Psychiatric: appropriate mood/affect, cooperative - Neurologic Neurologic: CNII-XII intact, moves all extremities Results - Labs CBC & Chem 7: 06/11/16 04:16 06/11/16 04:16 Labs: Laboratory Last Values WBC 7.2 K/mm3 (4.5-11.0) 06/11/16 04:16 RBC 2.94 M/mm3 (3.65-5.03) L 06/11/16 04:16 Hgb 8.8 gm/dl (11.8-15.2) L 06/11/16 04:16 Hct 25.7 % (35.5-45.6) L 06/11/16 04:16 MCV 87 fl (84-94) 06/11/16 04:16 MCH 30 pg (28-32) 06/11/16 04:16 MCHC 34 % (32-34) 06/11/16 04:16 RDW 15.2 % (13.2-15.2) 06/11/16 04:16 Plt Count 138 K/mm3 (140-440) L 06/11/16 04:16 Lymph % (Auto) 16.0 % (13.4-35.0) 06/11/16 04:16 [place] % (Auto) 6.6 % (0.0-7.3) 06/11/16 04:16 Eos % (Auto) 2.5 % (0.0-4.3) 06/11/16 04:16 Baso % (Auto) 0.6 % (0.0-1.8) 06/11/16 04:16 Lymph # 1.1 K/mm3 (1.2-5.4) L 06/11/16 04:16 [place] # 0.5 K/mm3 (0.0-0.8) 06/11/16 04:16 Eos # 0.2 K/mm3 (0.0-0.4) 06/11/16 04:16 Baso # 0.0 K/mm3 (0.0-0.1) 06/11/16 04:16 Seg Neutrophils % 74.3 % (40.0-70.0) H 06/11/16 04:16 Seg Neutrophils # 5.3 K/mm3 (1.8-7.7) 06/11/16 04:16 PT 14.7 Sec. (12.2-14.9) 06/10/16 04:34 INR 1.16 (0.87-1.13) H 06/10/16 04:34 APTT 25.6 Sec. (24.2-36.6) 06/08/16 02:01 D-Dimer 1494.82 ng/mlDDU (0-234) H 06/08/16 04:35 POC ABG pH 7.504 (7.35-7.45) H 06/09/16 04:55 POC ABG pCO2 41.1 (35-45) 06/09/16 04:55 POC ABG pO2 259 (80-105) H 06/09/16 04:55 POC ABG HCO3 32.4 06/09/16 04:55 POC ABG Total CO2 34 06/09/16 04:55 POC ABG O2 Sat 100 06/09/16 04:55 POC ABG Base Excess 9 06/09/16 04:55 FiO2 60 % 06/08/16 08:51 Sodium 143 mmol/L (137-145) 06/11/16 04:16 Potassium 4.6 mmol/L (3.6-5.0) 06/11/16 04:16 Chloride 99.2 mmol/L (98-107) 06/11/16 04:16 Carbon Dioxide 25 mmol/L (22-30) 06/11/16 04:16 Anion Gap 23 mmol/L 06/11/16 04:16 BUN 43 mg/dL (9-20) H 06/11/16 04:16 Creatinine 9.1 mg/dL (0.8-1.5) H 06/11/16 04:16 Estimated GFR 8 ml/min 06/11/16 04:16 BUN/Creatinine Ratio 4.72 % 06/11/16 04:16 Glucose 90 mg/dL (75-100) 06/11/16 04:16 POC Glucose 98 (70-105) 06/10/16 10:02 Lactic Acid 0.6 mmol/L (0.7-2.0) L 06/08/16 05:45 Calcium 8.4 mg/dL (8.4-10.2) 06/11/16 04:16 Phosphorus 5.9 mg/dL (2.5-4.5) H 06/09/16 04:00 Magnesium 1.8 mg/dL (1.7-2.3) 06/09/16 04:00 Total Bilirubin 0.4 mg/dL (0.1-1.2) 06/09/16 04:00 Direct Bilirubin < 0.2 mg/dL (0-0.2) 06/09/16 04:00 Indirect Bilirubin 0.2 mg/dL 06/09/16 04:00 AST 34 units/L (5-40) 06/09/16 04:00 ALT 44 units/L (7-56) 06/09/16 04:00 Alkaline Phosphatase 38 units/L (35-129) 06/09/16 04:00 Total Creatine Kinase 418 units/L (55-170) H 06/08/16 10:22 CK-MB (CK-2) 4.8 ng/mL (0.0-4.0) H 06/08/16 10:22 CK-MB (CK-2) Rel Index 1.1 (0-4) 06/08/16 10:22 Troponin T 0.143 ng/mL (0.00-0.029) H* D 06/08/16 10:22 NT-Pro-B Natriuret Pep 27047 pg/mL (0-450) H 06/08/16 02:01 Total Protein 6.2 g/dL (6.3-8.2) L D 06/09/16 04:00 Albumin 3.0 g/dL (3.9-5) L 06/09/16 04:00 Albumin/Globulin Ratio 0.9 % 06/09/16 04:00 Triglycerides 45 mg/dL (2-149) 06/08/16 04:35 Cholesterol 148 mg/dL (50-199) 06/08/16 04:35 LDL Cholesterol Direct 49 mg/dL (50-130) L 06/08/16 04:35 HDL Cholesterol 90 mg/dL (40-59) H 06/08/16 04:35 Cholesterol/HDL Ratio 1.64 % 06/08/16 04:35
[2016-06-12] MEDS ORDERED: XANAX PO PRN (18:04)
[2016-06-12] MEDS: CATAPRES PO SCH (20:43)
[2016-06-13] MEDS: CATAPRES PO SCH ×3 (04:35→20:03)
--- NOTE | 2016-06-13 07:44 | Progress Note ---
Assessment and Plan - Patient Problems (1) End stage renal disease on dialysis Current Visit: Yes Status: Chronic Plan to address problem: Continue Hemodialysis as planned. (2) Pulmonary edema Current Visit: Yes Status: Acute Qualifiers: Chronicity: acute Qualified Code(s): J81.0 - Acute pulmonary edema Plan to address problem: Improved with fluid removal with hemodialysis. The cause for recurrent flash pulmonary edema is unclear at this point. Renal artery duplex appears to be negative for significant renal artery stenosis. Aggressive BP reduction. Cardiology following. (3) Respiratory failure Current Visit: Yes Status: Acute Qualifiers: Chronicity: acute Respiratory failure complication: hypoxia Qualified Code(s): J96.01 - Acute respiratory failure with hypoxia Plan to address problem: Secondary to pulmonary edema. S/p extubated. (4) Hypertension Current Visit: No Status: Chronic Qualifiers: Hypertension type: H Plan to address problem: Patient is on multiple BP meds. Monitor BP. (5) Anemia Current Visit: No Status: Chronic Qualifiers: Anemia type: A Iron deficiency anemia type: I Vitamin B12 deficiency anemia type: V Folate deficiency anemia type: F Bone marrow failure anemia type: B Hemolytic anemia type: H Other causes of anemia: chronic disease, kidney Qualified Code(s): N18.9 - Chronic kidney disease, unspecified; D63.1 - Anemia in chronic kidney disease Plan to address problem: Epogen with hemodialysis. Subjective Date of service: 06/13/16 Principal diagnosis: CHF Interval history: No new complaint. Patient was seen and examined during hemodialysis. Objective - Vital Signs Vital signs: Vital Signs - 12hr 06/12/16 06/12/16 06/12/16 20:06 21:54 22:00 Temperature 97.7 F Pulse Rate 81 Pulse Rate [ Apical] Pulse Rate [ 83 From Monitor] Respiratory 20 Rate Blood Pressure Blood Pressure 158/88 [Left Arm] O2 Sat by Pulse 92 98 Oximetry 06/12/16 06/13/16 06/13/16 22:28 00:03 04:33 Temperature 98.2 F 98.4 F Pulse Rate 86 Pulse Rate [ 86 83 Apical] Pulse Rate [ From Monitor] Respiratory 18 20 Rate Blood Pressure 188/108 Blood Pressure 167/91 156/92 [Left Arm] O2 Sat by Pulse 96 Oximetry 06/13/16 04:35 Temperature Pulse Rate 83 Pulse Rate [ Apical] Pulse Rate [ From Monitor] Respiratory Rate Blood Pressure 156/92 Blood Pressure [Left Arm] O2 Sat by Pulse Oximetry - General Appearance General appearance: well-developed, well-nourished, appears stated age, other ( no distress) EENT: ATNC, PERRL, mucous membranes moist, hearing intact, vision intact Neck: supple Respiratory: Present: Clear to Ascultation Cardiology: regular, S1S2, no murmurs Gastrointestinal: normoactive bowel sounds, no tenderness, no distended, no guarding Integumentary: no rash, warm and dry Neurologic: no focal deficit, no asterixis, alert and oriented x3, CN 3-12 intact Musculoskeletal: other (right UE edema, right FA AVF) Psychiatric: mood/affect appropriate, cooperative - Lab 06/11/16 04:16 06/11/16 04:16 Most recent lab results Calcium 8.4 mg/dL (8.4-10.2) 06/11/16 04:16 Phosphorus 5.9 mg/dL (2.5-4.5) H 06/09/16 04:00 Magnesium 1.8 mg/dL (1.7-2.3) 06/09/16 04:00
[2016-06-13] MEDS ORDERED: ZEMPLAR IV PRN (07:46)
[2016-06-13] MEDS ORDERED: NACL 0.9% 100 ML IV PRN (07:46)
--- NOTE | 2016-06-13 07:52 | Vascular Lab Report ---
FISTULA DUPLEX EXAM: REASON FOR EXAM: AVF malfunction with ESRD. NOTE: THE FISTULA IS LOCATED IN THE right UPPER EXTREMITY. COMMENTS ON THE FISTULA: This is a radial artery inflow to cephalic vein outlflow fistula. Morphologicaly, there is general fistula dilatation distally. There is no velocity gradient to suggest focal stenosis. COMMENTS ON THE INFLOW: The inflow velocity is 3 85 cm/s which is adequate. The radial artery is 70 cm/s which is adequate. COMMENTS ON THE OUTFLOW: The venous outflow is 20 5 cm/s which is adequate. The volume is 1735 mL/min which is high. IMPRESSION: No evidence of focal stenosis. The volume passing through the fistula is high.
--- NOTE | 2016-06-13 07:55 | Vascular Lab Report ---
RENAL ARTERY DUPLEX EXAM: REASON FOR EXAM: Flash pulmonary edema. NOTE: Visualization is technically adequate. COMMENTS ON THE AORTA: The aorta is patent. Normal flow velocities are observed. No aneurysmal dilatation is noted. Mild atherosclerotic change is identified. The celiac artery is patent with normal flow velocity. The superior mesenteric artery is patent with normal flow velocity. COMMENTS ON THE RIGHT KIDNEY: The kidney measures 11.8 centimeters in greatest dimension. No obvious parenchymal abnormalities are noted. The renal artery is small and appears atretic. Maximum systolic velocity is 87 cm/sec. This finding is consistent with less than 60% diameter reduction. Renal aortic index is not obtained. Overall findings are consistent with less than 60% diameter reduction in the renal artery. COMMENTS ON THE LEFT KIDNEY: The kidney measures 12.3 centimeters in greatest dimension. No obvious parenchymal abnormalities are noted. The renal artery is small and atretic. Maximum systolic velocity is 43 cm/sec. This finding is consistent with less than 60% diameter reduction. Renal aortic index is not obtained. Overall findings are consistent with less than 60% diameter reduction in the renal artery. IMPRESSION: RIGHT KIDNEY: Less than 60% diameter reduction in the renal artery. Renal artery appears small and atretic LEFT KIDNEY: Less than 60% diameter reduction in the renal artery. Renal artery appears small and atretic
[2016-06-13] MEDS: BABY ASPIRIN PO SCH (09:17)
[2016-06-13] MEDS: APRESOLINE PO SCH ×4 (09:17→21:00)
[2016-06-13] MEDS: PROCARDIA XL PO SCH ×2 (09:18→21:52)
[2016-06-13] MEDS: SENSIPAR PO SCH (09:18)
[2016-06-13] MEDS: DIOVAN PO SCH ×2 (09:19→21:52)
[2016-06-13] MEDS: COREG PO SCH (09:19)
[2016-06-13] MEDS: LOVENOX SUB-Q SCH (09:19)
[2016-06-13] MEDS: PEPCID PO SCH (09:20)
[2016-06-13] MEDS: RENVELA PO SCH ×3 (09:20→17:31)
[2016-06-13] MEDS ORDERED: CARDURA PO SCH (12:00)
[2016-06-13] MEDS ORDERED: NACL 0.9 (PRIMING MACHINE ONLY DIALYSIS) MC ONE (14:22)
--- NOTE | 2016-06-13 16:52 | Progress Note ---
Assessment and Plan Assessment and plan: --End-stage renal disease on hemodialysis Hemodialysis per schedule nephrology following --Acute hypoxic respiratory failure status post extubation Saturating well on room air --High output right-sided heart failure, vascular recommend banding or ligation procedure of the fistula Cardiology nephrology following Patient is still considering --Chronic anemia secondary to end-stage renal disease low Stable H&H --Non-ST elevation [place]/positive troponins , status post coronary angiogram Normal coronaries --Malignant hypertension ; Blood pressures reasonable control, continue current antihypertensives and when necessary medications --DVT prophylaxis,With heparin Consults and recommendations noted and appreciated And new current management Plan of care discussed with the patient as well as his nurse I also discussed with the vascular surgeon History Interval history: Patient seen and evaluated medical records reviewed Hemodialysis today Denies any chest pain shortness of breath Alert awake oriented 3 not in acute distress vital signs stable Hospitalist Physical - Constitutional Vitals: Temp Pulse Resp BP Pulse Ox 98 F 76 18 178/90 97 06/13/16 13:49 06/13/16 13:49 06/13/16 13:49 06/13/16 13:49 06/13/16 09:11 General appearance: Present: no acute distress, well-nourished - EENT Eyes: Present: PERRL, EOM intact - Neck Neck: Present: supple, normal ROM - Respiratory Respiratory effort: normal Respiratory: bilateral: CTA, negative: rales, rhonchi, wheezing - Cardiovascular Rhythm: regular Heart Sounds: Present: S1 & S2 - Extremities Extremities: no ischemia, pulses intact, pulses symmetrical, abnormal (it upper extremity swelling present) - Abdominal General gastrointestinal: soft, non-tender, non-distended, normal bowel sounds - Integumentary Integumentary: Present: clear, warm - Psychiatric Psychiatric: appropriate mood/affect, cooperative - Neurologic Neurologic: CNII-XII intact, moves all extremities Results - Labs CBC & Chem 7: 06/11/16 04:16 06/11/16 04:16 Labs: Laboratory Last Values WBC 7.2 K/mm3 (4.5-11.0) 06/11/16 04:16 RBC 2.94 M/mm3 (3.65-5.03) L 06/11/16 04:16 Hgb 8.8 gm/dl (11.8-15.2) L 06/11/16 04:16 Hct 25.7 % (35.5-45.6) L 06/11/16 04:16 MCV 87 fl (84-94) 06/11/16 04:16 MCH 30 pg (28-32) 06/11/16 04:16 MCHC 34 % (32-34) 06/11/16 04:16 RDW 15.2 % (13.2-15.2) 06/11/16 04:16 Plt Count 138 K/mm3 (140-440) L 06/11/16 04:16 Lymph % (Auto) 16.0 % (13.4-35.0) 06/11/16 04:16 [place] % (Auto) 6.6 % (0.0-7.3) 06/11/16 04:16 Eos % (Auto) 2.5 % (0.0-4.3) 06/11/16 04:16 Baso % (Auto) 0.6 % (0.0-1.8) 06/11/16 04:16 Lymph # 1.1 K/mm3 (1.2-5.4) L 06/11/16 04:16 [place] # 0.5 K/mm3 (0.0-0.8) 06/11/16 04:16 Eos # 0.2 K/mm3 (0.0-0.4) 06/11/16 04:16 Baso # 0.0 K/mm3 (0.0-0.1) 06/11/16 04:16 Seg Neutrophils % 74.3 % (40.0-70.0) H 06/11/16 04:16 Seg Neutrophils # 5.3 K/mm3 (1.8-7.7) 06/11/16 04:16 PT 14.7 Sec. (12.2-14.9) 06/10/16 04:34 INR 1.16 (0.87-1.13) H 06/10/16 04:34 APTT 25.6 Sec. (24.2-36.6) 06/08/16 02:01 D-Dimer 1494.82 ng/mlDDU (0-234) H 06/08/16 04:35 POC ABG pH 7.504 (7.35-7.45) H 06/09/16 04:55 POC ABG pCO2 41.1 (35-45) 06/09/16 04:55 POC ABG pO2 259 (80-105) H 06/09/16 04:55 POC ABG HCO3 32.4 06/09/16 04:55 POC ABG Total CO2 34 06/09/16 04:55 POC ABG O2 Sat 100 06/09/16 04:55 POC ABG Base Excess 9 06/09/16 04:55 FiO2 60 % 06/08/16 08:51 Sodium 143 mmol/L (137-145) 06/11/16 04:16 Potassium 4.6 mmol/L (3.6-5.0) 06/11/16 04:16 Chloride 99.2 mmol/L (98-107) 06/11/16 04:16 Carbon Dioxide 25 mmol/L (22-30) 06/11/16 04:16 Anion Gap 23 mmol/L 06/11/16 04:16 BUN 43 mg/dL (9-20) H 06/11/16 04:16 Creatinine 9.1 mg/dL (0.8-1.5) H 06/11/16 04:16 Estimated GFR 8 ml/min 06/11/16 04:16 BUN/Creatinine Ratio 4.72 % 06/11/16 04:16 Glucose 90 mg/dL (75-100) 06/11/16 04:16 POC Glucose 98 (70-105) 06/10/16 10:02 Lactic Acid 0.6 mmol/L (0.7-2.0) L 06/08/16 05:45 Calcium 8.4 mg/dL (8.4-10.2) 06/11/16 04:16 Phosphorus 5.9 mg/dL (2.5-4.5) H 06/09/16 04:00 Magnesium 1.8 mg/dL (1.7-2.3) 06/09/16 04:00 Total Bilirubin 0.4 mg/dL (0.1-1.2) 06/09/16 04:00 Direct Bilirubin < 0.2 mg/dL (0-0.2) 06/09/16 04:00 Indirect Bilirubin 0.2 mg/dL 06/09/16 04:00 AST 34 units/L (5-40) 06/09/16 04:00 ALT 44 units/L (7-56) 06/09/16 04:00 Alkaline Phosphatase 38 units/L (35-129) 06/09/16 04:00 Total Creatine Kinase 418 units/L (55-170) H 06/08/16 10:22 CK-MB (CK-2) 4.8 ng/mL (0.0-4.0) H 06/08/16 10:22 CK-MB (CK-2) Rel Index 1.1 (0-4) 06/08/16 10:22 Troponin T 0.143 ng/mL (0.00-0.029) H* D 06/08/16 10:22 NT-Pro-B Natriuret Pep 83701 pg/mL (0-450) H 06/08/16 02:01 Total Protein 6.2 g/dL (6.3-8.2) L D 06/09/16 04:00 Albumin 3.0 g/dL (3.9-5) L 06/09/16 04:00 Albumin/Globulin Ratio 0.9 % 06/09/16 04:00 Triglycerides 45 mg/dL (2-149) 06/08/16 04:35 Cholesterol 148 mg/dL (50-199) 06/08/16 04:35 LDL Cholesterol Direct 49 mg/dL (50-130) L 06/08/16 04:35 HDL Cholesterol 90 mg/dL (40-59) H 06/08/16 04:35 Cholesterol/HDL Ratio 1.64 % 06/08/16 04:35
--- NOTE | 2016-06-13 17:53 | Progress Note ---
Assessment and Plan - Patient Problems (1) Pulmonary edema Current Visit: Yes Status: Acute Qualifiers: Chronicity: acute Qualified Code(s): J81.0 - Acute pulmonary edema Plan to address problem: The patient's acute pulmonary edema is likely due to combination of diastolic dysfunction and uncontrolled hypertension. Left ventricle ejection fraction is 70-75%. We need to aggressively control his blood pressure to prevent further episodes of flash pulmonary edema. Add Cardura 4 mg twice a day to his regimen, continue high dose Diovan and high-dose Procardia XL. Continue beta blockers for negative inotropy in the setting of possible hyperdynamic systolic LV function. Renovascular Doppler does not reveal any significant renal artery stenosis. Cardiac catheterization showed normal coronary arteries. (2) Hypertensive emergency Current Visit: Yes Status: Acute Plan to address problem: The patient's acute pulmonary edema is likely due to combination of diastolic dysfunction and uncontrolled hypertension. Left ventricle ejection fraction is 70-75%. We need to aggressively control his blood pressure to prevent further episodes of flash pulmonary edema. Add Cardura 4 mg twice a day to his regimen, continue high dose Diovan and high-dose Procardia XL. Continue beta blockers for negative inotropy in the setting of possible hyperdynamic systolic LV function. Renovascular Doppler does not reveal any significant renal artery stenosis. Subjective Date of service: 06/13/16 Principal diagnosis: CHF Interval history: Patient looks and feels better. Notably, his blood pressure continues to run high, 180s to 190s systolic despite multiple antihypertensives. Objective Vital Signs Temp Pulse Pulse Pulse Pulse Resp BP 06/13/16 13:49 98 F 72 18 176/90 06/13/16 13:30 74 178/90 06/13/16 13:15 74 172/96 06/13/16 13:00 74 180/106 06/13/16 12:45 72 196/110 06/13/16 12:30 74 178/100 06/13/16 12:15 76 168/102 06/13/16 12:00 76 178/98 06/13/16 11:45 78 168/98 06/13/16 11:30 78 170/98 06/13/16 11:15 76 168/96 06/13/16 11:00 60 160/90 06/13/16 10:45 60 166/90 06/13/16 10:30 60 170/90 06/13/16 10:25 98 F 62 18 162/86 06/13/16 10:15 62 166/90 06/13/16 10:00 62 166/90 06/13/16 09:11 06/13/16 09:00 97.6 F 80 16 06/13/16 04:35 83 156/92 06/13/16 04:33 98.4 F 83 20 06/13/16 00:03 98.2 F 86 18 06/12/16 22:28 86 188/108 06/12/16 22:00 81 06/12/16 21:54 06/12/16 20:06 97.7 F 83 20 BP Pulse Ox 06/13/16 13:49 06/13/16 13:30 06/13/16 13:15 06/13/16 13:00 06/13/16 12:45 06/13/16 12:30 06/13/16 12:15 06/13/16 12:00 06/13/16 11:45 06/13/16 11:30 06/13/16 11:15 06/13/16 11:00 06/13/16 10:45 06/13/16 10:30 06/13/16 10:25 06/13/16 10:15 06/13/16 10:00 06/13/16 09:11 97 06/13/16 09:00 166/104 99 06/13/16 04:35 06/13/16 04:33 156/92 06/13/16 00:03 167/91 96 06/12/16 22:28 06/12/16 22:00 06/12/16 21:54 98 06/12/16 20:06 158/88 92 - Physical Examination General: No Apparent Distress Neck: Positive: neck supple, trachea midline Cardiac: Positive: Reg Rate and Rhythm Lungs: Positive: Decreased Breath Sounds Neuro: Positive: Grossly Intact Abdomen: Positive: Soft Skin: Positive: Clear Extremities: Absent: edema - Imaging and Cardiology EKG: image reviewed
--- NOTE | 2016-06-13 19:18 | Event Note ---
Date: 06/13/16 Pt toya'd earlier today while on HD. We have repeated the AVF duplex to verify the high output volume flows. Peak volume flows of ~4.8L/min. Discussed the situation with the pt. He stated concerns about multiple admissions in the recent past due to difficulty breathing requiring intubation. We discussed avf volume flows as well as banding and ligation. His outpt telephone repairer advised him not to proceed with surgery. Cardiology has recommended aggressive BP control to prevent further episodes of flash pulmonary edema. Will defer to Cardiology and Nephrology medical judgment with regards to source of pt's CHF. If they do not feel his AVF is responsible then we will not intervene at this point.
[2016-06-13] MEDS: CARDURA PO SCH (21:52)
[2016-06-14] MEDS: COREG PO SCH ×2 (00:34→10:27)
[2016-06-14] MEDS: CATAPRES PO SCH ×2 (05:24→12:15)
--- NOTE | 2016-06-14 07:10 | Progress Note ---
Assessment and Plan - Patient Problems (1) End stage renal disease on dialysis Current Visit: Yes Status: Chronic Plan to address problem: Patient was dialyzed yesterday. Continue Hemodialysis three times a week. (2) Pulmonary edema Current Visit: Yes Status: Acute Qualifiers: Chronicity: acute Qualified Code(s): J81.0 - Acute pulmonary edema Plan to address problem: Improved with fluid removal while on hemodialysis. The cause for recurrent flash pulmonary edema is unclear at this point. Renal artery duplex showed atretic renal arteries and not amenable for any procedure per Vascular. Aggressive BP reduction. Cards are following. Had multiple discussions with patient, his primary Manager Grant and Vascular. Patient opted to follow with his Manager Grant and consider the procedure to reduce AVF flow in the future. (3) Respiratory failure Current Visit: Yes Status: Acute Qualifiers: Chronicity: acute Respiratory failure complication: hypoxia Qualified Code(s): J96.01 - Acute respiratory failure with hypoxia Plan to address problem: Secondary to pulmonary edema. S/p extubated. (4) Hypertension Current Visit: No Status: Chronic Qualifiers: Hypertension type: H Plan to address problem: Patient is on multiple BP meds. BP is fair. (5) Anemia Current Visit: No Status: Chronic Qualifiers: Anemia type: A Iron deficiency anemia type: I Vitamin B12 deficiency anemia type: V Folate deficiency anemia type: F Bone marrow failure anemia type: B Hemolytic anemia type: H Other causes of anemia: chronic disease, kidney Qualified Code(s): N18.9 - Chronic kidney disease, unspecified; D63.1 - Anemia in chronic kidney disease Plan to address problem: Epogen with hemodialysis. Subjective Date of service: 06/14/16 Principal diagnosis: CHF Interval history: No new complaint. Patient is doing ok. Objective - Vital Signs Vital signs: Vital Signs - 12hr 06/13/16 06/13/16 06/14/16 21:26 22:00 01:25 Temperature 98.1 F 98.4 F Pulse Rate 80 Pulse Rate [ Apical] Pulse Rate [ 59 L 58 L Left Radial] Respiratory 20 18 Rate Blood Pressure 158/85 170/91 [Left Arm] O2 Sat by Pulse 96 97 Oximetry 06/14/16 05:23 Temperature 97.8 F Pulse Rate Pulse Rate [ 76 Apical] Pulse Rate [ Left Radial] Respiratory 18 Rate Blood Pressure 155/96 [Left Arm] O2 Sat by Pulse 99 Oximetry - General Appearance General appearance: well-developed, well-nourished, appears stated age, obese, other (no distress) EENT: ATNC, PERRL, mucous membranes moist, hearing intact, vision intact Neck: supple Respiratory: Present: Clear to Ascultation Cardiology: regular, S1S2, no murmurs Gastrointestinal: normoactive bowel sounds, no tenderness, no distended, no guarding Integumentary: no rash, warm and dry Neurologic: no focal deficit, no asterixis, alert and oriented x3, CN 3-12 intact Musculoskeletal: other (right UE edematous, right FA AVF) Psychiatric: mood/affect appropriate, cooperative - Lab 06/11/16 04:16 06/11/16 04:16 Most recent lab results Calcium 8.4 mg/dL (8.4-10.2) 06/11/16 04:16 Phosphorus 5.9 mg/dL (2.5-4.5) H 06/09/16 04:00 Magnesium 1.8 mg/dL (1.7-2.3) 06/09/16 04:00
--- NOTE | 2016-06-14 08:29 | Vascular Lab Report ---
FISTULA DUPLEX EXAM: REASON FOR EXAM: AVF malfunction with ESRD. NOTE: THE FISTULA IS LOCATED IN THE right UPPER EXTREMITY. COMMENTS ON THE FISTULA: This is a radial artery inflow to cephalic vein outlflow fistula. Morphologicaly, there is general dilatation of the fistula. There is no velocity gradient to suggest focal stenosis. COMMENTS ON THE INFLOW: The inflow velocity is 241 cm/s which is adequate. The radial artery is not measured COMMENTS ON THE OUTFLOW: The venous outflow is 178 cm/s which is adequate. The volume is over 4 L/min which is very high. IMPRESSION: Very high output AV fistula. Clinical correlation recommended. If patient has history of CHF consideration should be given to an intervention to decrease the outflow of the fistula.
[2016-06-14] MEDS: DIOVAN PO SCH (10:27)
[2016-06-14] MEDS: LOVENOX SUB-Q SCH (10:27)
[2016-06-14] MEDS: BABY ASPIRIN PO SCH (10:27)
[2016-06-14] MEDS: PROCARDIA XL PO SCH (10:28)
[2016-06-14] MEDS: SENSIPAR PO SCH (10:28)
[2016-06-14] MEDS: APRESOLINE PO SCH ×2 (10:29→13:30)
[2016-06-14] MEDS: PEPCID PO SCH (10:29)
[2016-06-14] MEDS: RENVELA PO SCH (10:29)
[2016-06-14] MEDS: CARDURA PO SCH (10:29)
--- NOTE | 2016-06-14 10:44 | Discharge Summary ---
Providers - Providers Date of Admission: 06/08/16 04:17 Date of discharge: 06/14/16 Attending physician: JOSUE MOCK 06/08/16 04:21 Consult to Physician [CONS] Urgent Consulting Provider: NICHELLE CHAPMAN Reason For Exam: hd Notified:: already notified 06/08/16 11:36 Consult to Physician [CONS] Routine Consulting Provider: KRISTOFER CORONADO Reason For Exam: NSTEMI /ESRD Place consult to:: JOSE FAY Notified:: YES Time called:: 12:17 06/10/16 09:43 Consult to Cardiac Rehabilitation [CONS] Routine Reason For Exam: Cardiac Rehab Evaluation Primary care physician: AIRCRAFT FUSELAGE FRAMER Hospitalization Reason for admission: worsening shortness of breath/respiratory failure/ malignant hypertension Condition: Critical Pertinent studies: Multiple chest x-rays Hemodialysis access Doppler Cardiac catheterization Renal ultrasound Intubation and mechanical ventilation Status post extubation Procedures: Multiple chest x-rays, coronary angiogram, renal ultrasound, hemodialysis access duplex study Hospital course: Final diagnosis; Acute hypoxic respiratory failure requiring intubation Malignant hypertension requiring Cardene drip End-stage renal disease on hemodialysis High output right heart failure Acute hypoxic respiratory failure status post extubation Chronic anemia secondary to end-stage renal disease Non-ST elevation MA negative heart cath Consults; Nephrology Cardiology Vascular Pulmonary critical 50-year-old male patient with significant past medical history of hypertension and end-stage renal disease on hemodialysis 3 times a week was admitted through emergency room with worsening shortness of breath and uncontrolled blood pressures, patient was evaluation in the ED, was noted to be in acute respiratory distress, promptly intubated placed on ventilatory support, also started on Cardene drip for his malignant hypertension Admitted to the hospital subsequently evaluated by principal systems engineer, pulmonary critical as well as the nut dehydrator operator, had heartcath ,normal coronaries and high- output right heart failure Patient was stabilized , weaned off the ventilator and was extubated and transferred to the medical floor Patient was complimented medications and hemodialysis, however was admitted 2 times in the past with acute pulmonary edema requiring intubation, Per cardiology Patient was noted to have high-output right heart failure, vascular was consulted , who recommended banding of AV fistula/ligation of AV fistula. However patient and his private nut dehydrator operator refused the procedure at this point He was symptomatically managed Symptoms significantly improved And today he is comfortable in bed alert awake oriented 3 not in acute distress Vital signs are stable [id number]-mp-[id number] evaluation physical examination done by me prior to discharge did not show any new changes as detailed below Cleared by cardiology as well as nephrology for discharge and follow-up with them that scheduled Patient is hemodynamically and clinically stable for discharge and does not need any further acute inpatient care at this time Disposition: DISCHARGED TO HOME OR SELFCARE Time spent for discharge: 32min Core Measure Documentation - Palliative Care Palliative Care/ Comfort Measures: Not Applicable - Core Measures Any of the following diagnoses?: none Exam - Constitutional Vitals: Temp Pulse Resp BP Pulse Ox 98.3 F 78 20 157/83 96 06/14/16 08:00 06/14/16 08:21 06/14/16 08:00 06/14/16 08:00 06/14/16 08:00 General appearance: Present: no acute distress, well-nourished - EENT Eyes: Present: PERRL, EOM intact - Neck Neck: Present: supple, normal ROM - Respiratory Respiratory effort: normal Respiratory: bilateral: diminished, negative: rales, rhonchi, wheezing - Cardiovascular Rhythm: regular Heart Sounds: Present: S1 & S2 - Extremities Extremities: no ischemia, pulses intact, pulses symmetrical, abnormal (Rt arm swelling) Peripheral Pulses: within normal limits - Abdominal General gastrointestinal: Present: non-tender, non-distended, normal bowel sounds - Integumentary Integumentary: Present: clear, warm - Musculoskeletal Musculoskeletal: strength equal bilaterally - Psychiatric Psychiatric: appropriate mood/affect, cooperative - Neurologic Neurologic: CNII-XII intact, moves all extremities Plan Activity: no restrictions Diet: renal Additional Instructions: Renal/HD per schedule. Private vascular surgeon as needed. Private nut dehydrator operator 1-2 weeks Follow up with: NICHELLE CHAPMAN MD [Staff Physician] - 7 Days PRIMARY CARE, [Primary Care Provider] - 3-5 Days Prescriptions: Aspirin [Aspirin BABY CHEW TAB] 81 mg PO QDAY #30 tab.chew Carvedilol [Coreg] 25 mg PO BID #60 tablet cloNIDine [Catapres] 0.1 mg PO Q8H #30 tablet Doxazosin [Cardura] 4 mg PO BID #60 tablet NIFEdipine XL [Procardia Xl] 90 mg PO BID #60 tablet Valsartan [Diovan] 160 mg PO BID #60 tablet
[2016-06-14 12:11] VITALS: BP 162/98
--- NOTE | 2016-06-14 15:52 | Progress Note ---
<PATRICIA GONZALEZ - Last Filed: 06/14/16 15:49> Assessment and Plan Acute respiratory failure secondary to volume overload and pulmonary edema extubated ESRD on dialysis Chronic elevated troponin secondary to renal disease Hypertension Cardiac cath this admission showed normal coronary arteries. Echocardiogram this admission reports a left ventricle ejection fraction is 70- 75%. Plan: Aggressive control his blood pressure to prevent further episodes of flash pulmonary edema. Continue Cardura 4 mg twice a day, Diovan 160mg twice a day and Procardia XL 90mg twice a day. Continue beta blockers for negative inotropy in the setting of possible hyperdynamic systolic LV function. Stable, cardiac adames, for discharge home. F/U with [facility] as scheduled June 21. Subjective Date of service: 06/14/16 Principal diagnosis: CHF Interval history: Patient has no complaints. For planned discharge home today. Objective Vital Signs Temp Pulse Pulse Pulse Pulse Resp BP 06/14/16 12:10 61 20 162/98 06/14/16 08:21 78 06/14/16 08:00 98.3 F 54 L 20 157/83 06/14/16 05:23 97.8 F 76 18 155/96 06/14/16 01:25 98.4 F 58 L 18 170/91 06/13/16 22:00 80 06/13/16 21:26 98.1 F 59 L 20 158/85 06/13/16 17:25 97.8 F 60 24 158/94 Pulse Ox 06/14/16 12:10 06/14/16 08:21 06/14/16 08:00 96 06/14/16 05:23 99 06/14/16 01:25 97 06/13/16 22:00 06/13/16 21:26 96 06/13/16 17:25 99 - Physical Examination General: No Apparent Distress HEENT: Positive: PERRL Neck: Positive: neck supple, trachea midline Cardiac: Positive: Reg Rate and Rhythm Lungs: Positive: Decreased Breath Sounds Neuro: Positive: Grossly Intact Extremities: Absent: edema - Imaging and Cardiology EKG: image reviewed <KRISTOFER CORONADO - Last Filed: 06/14/16 17:55> Assessment and Plan - Patient Problems (1) Pulmonary edema Status: Acute Qualifiers: Chronicity: acute Qualified Code(s): J81.0 - Acute pulmonary edema (2) Hypertensive emergency Status: Acute Plan to address problem: We have been able to obtain much better control of his blood pressure with the addition of Cardura 4 mg by mouth twice a day. This will be continued in the outpatient setting. Objective Vital Signs Temp Pulse Pulse Pulse Pulse Resp BP 06/14/16 12:10 61 20 162/98 06/14/16 08:21 78 06/14/16 08:00 98.3 F 54 L 20 157/83 06/14/16 05:23 97.8 F 76 18 155/96 06/14/16 01:25 98.4 F 58 L 18 170/91 06/13/16 22:00 80 06/13/16 21:26 98.1 F 59 L 20 158/85 Pulse Ox 06/14/16 12:10 06/14/16 08:21 06/14/16 08:00 96 06/14/16 05:23 99 06/14/16 01:25 97 06/13/16 22:00 06/13/16 21:26 96
== END 2016-06-14 13:45 | disposition home or self-care (01) | DRG 871 ==
LOC: ED 01:30 → CC1 04:17 → 4A 06-10 17:27
PROVIDERS: ADMIT Internal Medicine; ATTEND Internal Medicine
PROC: 5A1935Z Respiratory Ventilation, Less than 24 Consecutive Hours (ICD-10-PCS; principal; 2016-06-08)
PROC: 0BH17EZ Insertion of Endotracheal Airway into Trachea, Via Natural or Artificial Opening (ICD-10-PCS; 2016-06-08)
PROC: 05HP33Z Insertion of Infusion Device into Right External Jugular Vein, Percutaneous Approach (ICD-10-PCS; 2016-06-08)
PROC: 4A033R1 Measurement of Arterial Saturation, Peripheral, Percutaneous Approach (ICD-10-PCS; 2016-06-08)
PROC: 5A1D60Z (ICD-10-PCS; 2016-06-08)
PROC: 4A023N8 Measurement of Cardiac Sampling and Pressure, Bilateral, Percutaneous Approach (ICD-10-PCS; 2016-06-10)
PROC: B2111ZZ Fluoroscopy of Multiple Coronary Arteries using Low Osmolar Contrast (ICD-10-PCS; 2016-06-10)
PROC: B2151ZZ Fluoroscopy of Left Heart using Low Osmolar Contrast (ICD-10-PCS; 2016-06-10)
DX: A41.9 Sepsis, unspecified organism (principal); J96.01 Acute respiratory failure with hypoxia; J18.9 Pneumonia, unspecified organism; N18.6 End stage renal disease; I16.1 Hypertensive emergency; E87.2 Acidosis; I13.2 Hypertensive heart and chronic kidney disease with heart failure and with stage 5 chronic kidney disease, or end stage renal disease; K21.9 Gastro-esophageal reflux disease without esophagitis; E87.70 Fluid overload, unspecified; E87.5 Hyperkalemia; I50.9 Heart failure, unspecified; D63.1 Anemia in chronic kidney disease; Z88.8 Allergy status to other drugs, medicaments and biological substances; Z99.2 Dependence on renal dialysis; Z79.899 Other long term (current) drug therapy; Z79.82 Long term (current) use of aspirin; Z82.49 Family history of ischemic heart disease and other diseases of the circulatory system
CPT/HCPCS: 36415; 36600; 71010; 80048; 80053; 80061; 80074; 82140; 82550; 82553; 82803; 82962; 83735; 83880; 84100; 84484; 85025; 85379; 85610; 85730; 87070; 87086; 87205; 93005; 93010; 93460; 93975; 93990; 94002; 94003; 94760; 96365; 96366; 96368; 96375; C1760; J0360; J0885; J1644; J1650; J1956; J2060; J2250; J2501; J2543; J2704; J3010; J3370; J7030; J7050; Q9967

== ENCOUNTER 2018-05-17 12:45 | Emergency (ER) | payer MEDICARE ==
--- NOTE | 2018-05-17 13:06 | Emergency Department Report ---
Blank Doc - Documentation Documentation: This is a 52-year-old male that presents with right elbow pain and swelling. Denies any injuries. This initial assessment/diagnostic orders/clinical plan/treatment(s) is/are subject to change based on patient's health status, clinical progression and re- assessment by fellow clinical providers in the ED. Further treatment and workup at subsequent clinical providers discretion. Patient/guardians urged not to elope from the ED as their condition may be serious if not clinically assessed and managed. Initial orders include: 1- Patient sent to [facility] for further evaluation and treatment 2- xray
[2018-05-17 13:07] VITALS: BP 175/87
--- NOTE | 2018-05-17 13:41 | XRay Report ---
RIGHT ELBOW, 3 views: HISTORY: right elbow pain. There is severe posterior soft tissue swelling. No radiopaque foreign body or gas is identified on x-ray. A small olecranon spur is noted. There is normal bone mineralization. The joint spaces within normal limits. No fracture or suspicious bony lesion. IMPRESSION: Severe posterior soft tissue swelling. Olecranon spur. Olecranon bursitis?
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
== END 2018-05-17 15:07 | disposition home or self-care (01) ==
LOC: ED 12:45
DX: M70.21 Olecranon bursitis, right elbow (principal); I12.0 Hypertensive chronic kidney disease with stage 5 chronic kidney disease or end stage renal disease; N18.6 End stage renal disease; K21.9 Gastro-esophageal reflux disease without esophagitis; F17.200 Nicotine dependence, unspecified, uncomplicated; Z99.2 Dependence on renal dialysis; Z88.8 Allergy status to other drugs, medicaments and biological substances; Y93.89 Activity, other specified
CPT/HCPCS: 99283

== ENCOUNTER 2018-06-04 14:38 | Emergency (ER) | payer MEDICARE ==
--- NOTE | 2018-06-04 14:59 | Emergency Department Report ---
Chief Complaint: Upper Respiratory Infection Stated Complaint: CHEST COLD Time Seen by Provider: 06/04/18 14:57 - HPI History of Present Illness: cold cough congestion mucinex not helping green phlegm; now thinner no fever no chills hd this am [facility] esrd hd cig no copd mse completed - Exam Vital Signs: Vital Signs 06/04/18 14:55 Temperature 98.3 F Pulse Rate 75 Respiratory 18 Rate Blood Pressure 139/73 O2 Sat by Pulse 99 Oximetry MSE screening note: Focused history and physical exam performed. Due to findings the following was ordered: ED Disposition for MSE Condition: Stable
--- NOTE | 2018-06-04 16:18 | XRay Report ---
XRAY CHEST TWO VIEWS: 06/04/18 14:38:00 CLINICAL: Cough. COMPARISON: 06/09/16 FINDINGS: Normal heart and pulmonary vasculature.Stable mild elevation of the left hemidiaphragm and blunting of the left costophrenic angle. Left lower lobe focal lung scar and adjacent pleural thickening. Rest of the lungs are clear.The bones and soft tissues are unremarkable. No tubes or lines. IMPRESSION: No acute cardiopulmonary process.Chronic left lower lobe scar.
[2018-06-04] MEDS ORDERED: TESSALON PERLES PO ONE (17:25)
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
[2018-06-04 17:51] VITALS: BP 131/71
== END 2018-06-04 17:42 | disposition home or self-care (01) ==
LOC: ED 14:38
DX: J40 Bronchitis, not specified as acute or chronic (principal); I12.9 Hypertensive chronic kidney disease with stage 1 through stage 4 chronic kidney disease, or unspecified chronic kidney disease; N18.9 Chronic kidney disease, unspecified; K21.9 Gastro-esophageal reflux disease without esophagitis; Z79.899 Other long term (current) drug therapy; Z88.6 Allergy status to analgesic agent
CPT/HCPCS: 71046; 99283

== ENCOUNTER 2018-06-14 08:06 | Emergency (ER) | payer MEDICARE ==
[2018-06-14 08:12] VITALS: BP 160/76
[2018-06-14] MEDS ORDERED: TYLENOL PO ONE (08:35)
[2018-06-14] MEDS ORDERED: IBUPROFEN PO ONE (08:36)
--- NOTE | 2018-06-14 09:11 | XRay Report ---
Pelvis 2 views: History: Bilateral hip pain. Findings: Narrowing of the right sacroiliac joint probably related to arthritic changes. Bilateral arthritic changes superolateral aspect of hip joints. No fracture or dislocation or lytic lesion. 

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
== END 2018-06-14 09:26 | disposition home or self-care (01) ==
LOC: ED 08:06
DX: M25.551 Pain in right hip (principal); M25.552 Pain in left hip; I12.9 Hypertensive chronic kidney disease with stage 1 through stage 4 chronic kidney disease, or unspecified chronic kidney disease; N18.9 Chronic kidney disease, unspecified; K21.9 Gastro-esophageal reflux disease without esophagitis
CPT/HCPCS: 72170

== ENCOUNTER 2018-07-31 09:28 | Emergency (ER) | payer MEDICARE ==
[2018-07-31 09:44] VITALS: BP 186/104
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
--- NOTE | 2018-07-31 12:06 | XRay Report ---
ROUTINE CHEST, TWO VIEWS: HISTORY: Cough. Chronic left pleural thickening is unchanged since 06/08/18. The lungs are clear. Heart and mediastinal structures are unremarkable. The bony thorax is intact. IMPRESSION: No acute process. Chronic left pleural thickening.
== END 2018-07-31 12:23 | disposition home or self-care (01) ==
LOC: ED 09:28
DX: J20.9 Acute bronchitis, unspecified (principal); K21.9 Gastro-esophageal reflux disease without esophagitis; I12.9 Hypertensive chronic kidney disease with stage 1 through stage 4 chronic kidney disease, or unspecified chronic kidney disease; N18.9 Chronic kidney disease, unspecified; F17.200 Nicotine dependence, unspecified, uncomplicated; Z79.899 Other long term (current) drug therapy; Z88.6 Allergy status to analgesic agent
CPT/HCPCS: 71046; 99283

== ENCOUNTER 2018-12-29 09:32 | Emergency (ER) | payer MEDICARE ==
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
--- NOTE | 2018-12-29 13:03 | XRay Report ---
AP pelvis INDICATION: Left hip and groin pain FINDINGS: There is generalized sclerosis of the left femoral head when compared to the right likely d ue to avascular necrosis. There is no arthritic changes of the left hip yet seen. Right hip is grossl y intact as well as is the pelvis. IMPRESSION: Probable AVN of the left femoral head. Signer Name: Fernie Landa MD Signed: 12/29/2018 12:59 PM Workstation Name: [id number]
[2018-12-29 14:28] VITALS: BP 158/63
== END 2018-12-29 14:20 | disposition home or self-care (01) ==
LOC: ED 09:32
DX: M87.052 Idiopathic aseptic necrosis of left femur (principal); R10.9 Unspecified abdominal pain; K21.9 Gastro-esophageal reflux disease without esophagitis; I12.0 Hypertensive chronic kidney disease with stage 5 chronic kidney disease or end stage renal disease; N18.6 End stage renal disease; M13.852 Other specified arthritis, left hip; Z99.2 Dependence on renal dialysis; Z79.899 Other long term (current) drug therapy; Z88.8 Allergy status to other drugs, medicaments and biological substances
CPT/HCPCS: 72170

== ENCOUNTER 2019-01-19 21:42 | Emergency (ER) | payer MEDICARE ==
[2019-01-19 22:11] LABS: Hematocrit 28.8 % (35.5-45.6); Hemoglobin 10.1 gm/dl (11.8-15.2); Mean Corpuscular HGB Conc 35 % (32-34); Mean Corpuscular Volume 88 fl (84-94); Platelet Count 219 K/mm3 (140-440); Red Blood Count 3.26 M/mm3 (3.65-5.03); Red Cell Distribution Width 16.4 % (13.2-15.2)
--- NOTE | 2019-01-19 22:32 | XRay Report ---
CHEST 2 VIEWS INDICATION / CLINICAL INFORMATION: Chest Pain. COMPARISON: Chest x-ray 07/31/2018 FINDINGS: SUPPORT DEVICES: None. HEART / MEDIASTINUM: No significant abnormality. LUNGS / PLEURA: Chronic elevation left hemidiaphragm. No significant pulmonary or pleural abnormality . No pneumothorax. ADDITIONAL FINDINGS: No significant additional findings. IMPRESSION: 1. No acute findings. Signer Name: Osorio Lopez MD Signed: 01/19/2019 10:27 PM Workstation Name: [id number]
[2019-01-19 22:33] LABS: Calcium 9.1 mg/dL (8.4-10.2)
[2019-01-19] MEDS ORDERED: FAMOTIDINE 20 MG TAB PO ONE (22:43)
[2019-01-19] MEDS ORDERED: SUCRALFATE 1 GM/10 ML ORAL LIQD PO ONE (22:43)
[2019-01-19] MEDS ORDERED: ONDANSETRON 2 MG/2.5 ML ORAL LIQD PO ONE (22:43)
[2019-01-19] MEDS ORDERED: carvediloL 25 MG TAB PO STA (22:46)
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
[2019-01-19 22:56] LABS: Chol/HDL Ratio 1.82 %
[2019-01-19 23:10] LABS: Basophils % (Manual) 0 % (0.0-1.8); Total Cells Counted 100
[2019-01-19 23:11] LABS: Anisocytosis 1+; Large Platelets 1+; Ovalocytes 1+; Platelet Estimate Consistent w Auto
[2019-01-19 23:47] VITALS: BP 168/85
== END 2019-01-19 23:50 | disposition home or self-care (01) ==
LOC: ED 21:42
DX: R14.2 Eructation (principal); R07.89 Other chest pain; E11.22 Type 2 diabetes mellitus with diabetic chronic kidney disease; I12.0 Hypertensive chronic kidney disease with stage 5 chronic kidney disease or end stage renal disease; N18.6 End stage renal disease; K21.9 Gastro-esophageal reflux disease without esophagitis; M19.90 Unspecified osteoarthritis, unspecified site; F12.10 Cannabis abuse, uncomplicated; Z99.2 Dependence on renal dialysis; Z88.8 Allergy status to other drugs, medicaments and biological substances
CPT/HCPCS: 36415; 71046; 80048; 80061; 82550; 83735; 84484; 85007; 85025; 93005; 93010; 99284; Q0162

== ENCOUNTER 2019-03-28 06:53 | Day surgery (SDC) | payer MEDICARE ==
[2019-03-28 07:21] VITALS: BP 150/77
== END 2019-03-28 06:54 | disposition home or self-care (01) ==
LOC: OR 06:53
PROVIDERS: ATTEND Orthopaedic Surgery
DX: Z12.11 Encounter for screening for malignant neoplasm of colon (principal); I12.0 Hypertensive chronic kidney disease with stage 5 chronic kidney disease or end stage renal disease; N18.6 End stage renal disease; D64.9 Anemia, unspecified; K21.9 Gastro-esophageal reflux disease without esophagitis; M19.90 Unspecified osteoarthritis, unspecified site; F41.9 Anxiety disorder, unspecified; Z53.8 Procedure and treatment not carried out for other reasons; Z79.899 Other long term (current) drug therapy; Z88.8 Allergy status to other drugs, medicaments and biological substances; Z99.89 Dependence on other enabling machines and devices; Z99.2 Dependence on renal dialysis; Z82.5 Family history of asthma and other chronic lower respiratory diseases; Z98.890 Other specified postprocedural states; Z82.49 Family history of ischemic heart disease and other diseases of the circulatory system

== ENCOUNTER 2019-10-31 07:32 | Outpatient (CLI) | payer MEDICARE ==
--- NOTE | 2019-10-31 11:43 | Magnetic Resonance Report ---
MRI LEFT HIP WITHOUT CONTRAST INDICATION / CLINICAL INFORMATION: Pain in left hip, difficulty walking. TECHNIQUE: Multiplanar, multisequence MR images were obtained. No contrast used. COMPARISON: Radiographs dated 12/29/2018. FINDINGS: ACETABULAR LABRUM: Circumferential maceration. ARTICULAR CARTILAGE: Diffuse loss of the articular cartilage. JOINT SPACE AND CAPSULE: Large joint effusion with synovitis and a few intra-articular loose bodies l ikely reflecting chondral and labral fragments. Within the posterior joint space, there is a 7 mm fra gment best seen on axial image 12. Within the anterior joint space on axial image 11, there is a 1 cm fragment. GLUTEAL MUSCLES/TENDONS: No significant abnormality. ILIOPSOAS MUSCLES/TENDON: No significant abnormality. PROXIMAL HAMSTRING TENDONS: No significant abnormality. GROIN MUSCLES/TENDONS: No significant abnormality. SOFT TISSUES: No significant abnormality. BONES: There is incomplete serpiginous subchondral dark signal on the T1 and STIR series, as well as complete femoral head collapse, bony remodeling involving the acetabulum, and advanced secondary deg enerative change. No fracture. No osseous lesion. SACROILIAC JOINT(S): No significant abnormality. LOWER LUMBAR SPINE: No significant abnormality of visualized lower lumbar spine. SOFT TISSUE WITHIN PELVIS: No acute findings. ADDITIONAL FINDINGS: There is a large left-sided hydrocele. IMPRESSION: 1. 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 Given considerable miguel cular cartilage loss, large joint effusion, and the degree of synovitis, correlate for any potential superimposed infectious process. 2. Large left-sided hydrocele. Report dictated by: Chandana Esparza MD Report dictated on: 10/31/2019 10:21 AM I have reviewed the images, agree with this report, and edited this report as needed. Signer Name: Jeremiah Gamble MD Signed: 10/31/2019 11:38 AM Workstation Name: [email or web address]
== END 2019-10-31 07:33 | disposition home or self-care (01) ==
LOC: MRI 07:32
PROVIDERS: ATTEND Orthopaedic Surgery
DX: N43.3 Hydrocele, unspecified (principal); M25.562 Pain in left knee; M16.12 Unilateral primary osteoarthritis, left hip; M25.452 Effusion, left hip; M65.9 Synovitis and tenosynovitis, unspecified
CPT/HCPCS: 73721

== ENCOUNTER 2019-12-05 05:45 | Day surgery (SDC) | payer MEDICARE ==
[~2019-12-05 05:45] MED LIST: BUPIVACAINE/PF (0.5%) 5 MG/1 ML 10 ML VIAL INFILTRATI ONE
[2019-12-05] MEDS ORDERED: SODIUM CHLORIDE 0.9% 1000 ML 1,000 ML IV SCH (06:00)
[2019-12-05] MEDS ORDERED: MIDAZOLAM 2 MG/2 ML INJ IV NR (06:00)
[2019-12-05] MEDS ORDERED: BACTERIOSTATIC SODIUM CHLORIDE 0.9% 30 ML VIAL INFILTRATI ONE (06:18)
[2019-12-05 07:11] LABS: Calcium 8.7 mg/dL (8.4-10.2)
--- NOTE | 2019-12-05 07:17 | Anesthesia Consultation ---
Anesthesia Consult and Med Hx Date of service: 12/05/19 - Airway Anesthetic Teeth Evaluation: Good ROM Head & Neck: Adequate Mallampati Class: Class II Intubation Access Assessment: Good - Pulmonary Exam CTA: Yes - Cardiac Exam Cardiac Exam: RRR - Pre-Operative Health Status ASA Pre-Surgery Classification: ASA3 Proposed Anesthetic Plan: MAC - Pulmonary Hx Smoking: No (HX PUL. NODULE LLL "WATCHING") Hx Asthma: No SOB: Yes (SOB) COPD: No Hx Pneumonia: No Hx Sleep Apnea: No (KIRSTIE PRE SCREEN HIGH RISK) - Cardiovascular System Hx Hypertension: Yes (X 5 YRS) - Endocrine Hx Renal Disease: Yes (ESRD M-W-F) Hx End Stage Renal Disease: Yes - Hematic Hx Anemia: Yes - Other Systems Hx Alcohol Use: No Hx Substance Use: Yes (OCC MARIJUANA USE) Hx Cancer: No
--- NOTE | 2019-12-05 07:18 | Anesthesia Day of Surgery ---
Anesthesia Day of Surgery - Day of Surgery Patient Examined: Yes Patient H&P Reviewed: Yes Patient is NPO: Yes Beta Blockers: Yes
[2019-12-05] MEDS ORDERED: BUPIVACAINE/PF (0.5%) 5 MG/1 ML 10 ML VIAL INFILTRATI ONE ×2 (07:30→08:51)
[2019-12-05] MEDS ORDERED: LIDOCAINE (1%) 10 MG/1 ML VIAL 20 ML MDV ONE (07:30)
[2019-12-05] MEDS ORDERED: ONDANSETRON 4 MG/2 ML INJ ONE (07:40)
[2019-12-05] MEDS ORDERED: LIDOCAINE MPF (2%) 20 MG/1 ML VIAL 5 ML ONE (07:40)
[2019-12-05] MEDS ORDERED: fentaNYL 100 MCG/2 ML INJ ONE (07:40)
[2019-12-05] MEDS ORDERED: propofoL 200 MG/20 ML VIAL IV ONE ×3 (07:41→08:54)
[2019-12-05] MEDS ORDERED: KETAMINE/STERILE WATER 50 MG/ML SYRINGE ONE (07:41)
[2019-12-05] MEDS ORDERED: fentaNYL 100 MCG/2 ML INJ IV PRN (07:43)
[2019-12-05] MEDS ORDERED: methylPREDNISolone ACETATE 40 MG/1 ML INJ ONE (08:27)
[2019-12-05] MEDS ORDERED: LIDOCAINE (1%) 10 MG/1 ML VIAL 20 ML MDV INFILTRATI ONE (08:53)
[2019-12-05] MEDS ORDERED: methylPREDNISolone ACETATE 40 MG/1 ML INJ INTRA-ARTI ONE (08:54)
[2019-12-05] MEDS ORDERED: WATER FOR IRRIG STERILE 1,500 ML BOTTLE IR ONE (08:54)
--- NOTE | 2019-12-05 09:34 | Procedure Note ---
Date of procedure: 12/05/19 Pre-op diagnosis: Left hip pain avascular necrosis left femoral head Post-op diagnosis: same Procedure: Radiofrequency ablation left femoral and obturator nerves Procedure The patient was brought to the OR placed in the OR table in supine position following induction with MAC anesthesia the patient's left [hip] was then prepped and draped in the usual sterile manner. A timeout procedure was done to identify the patient and the correct operative site. Using C-arm fluoroscopy the area overlying the acetabular rim superiorly was localized, care was taken to avoid the neurovascular structures, next the thermoprobe was placed into the correct position along the acetabular superior rim, next a second probe was then inserted just medial to the tear drop sign near the obturator canal, again care was taken to avoid the neurovascular structures once These probes were in the corret position the nerves was checked to make sure that we were not near the motor nerves following this the radiofrequency was then began and continued for 2-1/2 minutes in each location After ablating the nerves I injected Marcaine and Kenalog mixture into the portals followed by removal. Band-Aids were applied to the puncture sites the patient was then awaken and was taken to postanesthesia recovery Anesthesia: MAC Surgeon: MAREN COOK Pathology: none Condition: stable Disposition: PACU
[2019-12-05 10:56] VITALS: BP 155/75
[2019-12-05] MEDS ORDERED: HYDROcodone/ACETAMINOPHEN 7.5-325MG TAB PO PRN (11:00)
--- NOTE | 2019-12-05 15:49 | Post Anesthesia Evaluation ---
- Post Anesthesia Evaluation Patient Participated: Yes Airway Patent: Yes Stable Respiratory Function: Yes Nausea/Vomiting: No Temp > 96.8F: Yes Pain Manageable: Yes Adequeate Hydration: Yes Anesthesia Complications: No
--- NOTE | 2019-12-05 18:04 | XRay Report ---
INTRAOPERATIVE FLUOROSCOPY: LEFT HIP INDICATION / CLINICAL INFORMATION: LT HIP PAIN. TECHNIQUE: Intraoperative spot images were obtained during the procedure. FINDINGS: Image shows needles projecting over the left hip. See operative/procedure note by performing physician for full details. Fluoroscopy Time: 18 seconds. Fluoroscopy Images: 3. Signer Name: Jordi Moser MD Signed: 12/05/2019 5:59 PM Workstation Name: [id number]
== END 2019-12-05 11:25 | disposition home or self-care (01) ==
LOC: OR 05:45
PROVIDERS: ATTEND Orthopaedic Surgery
DX: M25.552 Pain in left hip (principal); M87.052 Idiopathic aseptic necrosis of left femur; I13.2 Hypertensive heart and chronic kidney disease with heart failure and with stage 5 chronic kidney disease, or end stage renal disease; N18.6 End stage renal disease; I50.9 Heart failure, unspecified; K21.9 Gastro-esophageal reflux disease without esophagitis; D64.9 Anemia, unspecified; M19.90 Unspecified osteoarthritis, unspecified site; F41.9 Anxiety disorder, unspecified; Z83.3 Family history of diabetes mellitus; Z82.5 Family history of asthma and other chronic lower respiratory diseases; Z98.890 Other specified postprocedural states; Z79.899 Other long term (current) drug therapy; Z99.2 Dependence on renal dialysis; Z87.440 Personal history of urinary (tract) infections; Z82.49 Family history of ischemic heart disease and other diseases of the circulatory system; Z88.8 Allergy status to other drugs, medicaments and biological substances
CPT/HCPCS: 36415; 64640; 73501; 80048; A4649; J1030; J2250; J2405; J2704; J3010; J3490; J7030

== ENCOUNTER 2020-02-10 13:56 | Emergency (ER) | payer MEDICARE ==
[2020-02-10 16:38] VITALS: BP 152/69
== END 2020-02-10 18:00 | disposition left against medical advice (07) ==
LOC: ED 13:56
DX: I10 Essential (primary) hypertension (principal); Z53.21 Procedure and treatment not carried out due to patient leaving prior to being seen by health care provider

== ENCOUNTER 2020-07-05 05:00 | Observation (INO) | payer MEDICARE ==
--- NOTE | 2020-07-05 05:19 | Event Note ---
ED Screening Note Date of service: 07/05/20 Time: 05:18 ED Screening Note: 54-year-old male presenting with a chief complaint of shortness of breath x1 night. Last received dialysis 07/03/2020 This initial assessment/diagnostic orders/clinical plan/treatment(s) is/are subject to change based on patients health status, clinical progression and re- assessment by fellow clinical providers in the ED. Further treatment and workup at subsequent clinical providers discretion. Patient/guardian urged not to elope from the ED as their condition may be serious if not clinically assessed and managed. Initial orders include: Respiratory therapy evaluation/BiPAP CBC, BMP, INR, proBNP, chest x-ray
--- NOTE | 2020-07-05 05:35 | XRay Report ---
CHEST 1 VIEW 07/05/2020 4:24 AM INDICATION / CLINICAL INFORMATION: Shortness of breath. COMPARISON: 01/19/19. FINDINGS: SUPPORT DEVICES: None. HEART / MEDIASTINUM: The heart size is borderline. There is prominence of the central pulmonary vesse ls. LUNGS / PLEURA: There is mild to moderate bilateral pleuroparenchymal disease, greater on the right. There is poor definition of both hemidiaphragms. No pneumothorax. ADDITIONAL FINDINGS: No significant additional findings. IMPRESSION: Bilateral pleuroparenchymal disease is probably related to congestive heart failure/fluid overload. Signer Name: Khoi Uribe MD Signed: 07/05/2020 5:30 AM Workstation Name: [id number]
[2020-07-05 05:49] LABS: INR 0.97 (0.87-1.13)
[2020-07-05 06:02] LABS: Calcium 9.5 mg/dL (8.4-10.2)
[2020-07-05 06:05] LABS: Basophils % (Auto) 0.8 % (0.0-1.8); Eosinophils # (Auto) 0.1 K/mm3 (0.0-0.4); Hematocrit 38.7 % (35.5-45.6); Hemoglobin 13.1 gm/dl (11.8-15.2); Lymphocytes # (Auto) 0.8 K/mm3 (1.2-5.4); Lymphocytes % (Auto) 16.8 % (13.4-35.0); Mean Corpuscular HGB Conc 34 % (32-34); Mean Corpuscular Volume 90 fl (84-94); Monocytes # (Auto) 0.1 K/mm3 (0.0-0.8); Monocytes % (Auto) 2.6 % (0.0-7.3); Platelet Count 121 K/mm3 (140-440); Red Blood Count 4.28 M/mm3 (3.65-5.03); Red Cell Distribution Width 16.7 % (13.2-15.2)
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
[2020-07-05] MEDS ORDERED: HEPARIN 10,000 UNITS/10 ML VIAL IV PRN (09:09)
[2020-07-05] MEDS ORDERED: SODIUM CHLORIDE 0.9% 100 ML IV PRN (09:09)
[2020-07-05] MEDS ORDERED: HYDROcodone/ACETAMINOPHEN 7.5-325MG TAB PO PRN (11:35)
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
--- NOTE | 2020-07-05 13:13 | Consultation ---
History of Present Illness - Reason for Consult Consult date: 07/05/20 end stage renal disease, other (volume overload) - History of Present Illness Patient is a 54 YO AAM known to our service with history significant for GERD, HTN and ESRD on hemodialysis(MWF) who presented to [facility] ED 07/05 with c/o shortness of breath that started last night. Patient stated that he did not take his blood pressure medicine before he went to sleep. He also stated that he ate hamburger yesterday. Admits drinking excessive fluid over the weekend. Associated symptoms include cough. Patient denied any chest pain, fever, chills, cough, nausea, vomiting, abd pain, ROSALES or dizziness. Initial BP was around 209/110. CXR showed pulmonary edema. Last hemodialysis was 2 days ago. Nephrology was consulted for further evaluation. Past History Past Medical History: dialysis, ESRD, hypertension Medications and Allergies Allergies Allergy/AdvReac Type Severity Reaction Status Date / Time lisinopril Allergy Angioedema Verified 12/29/18 09:36 Home Medications Medication Instructions Recorded Confirmed Last Taken Type B Complex 11/Folic/C/Biot/Zinc 800 each PO DAILY #30 tablet 08/31/16 11/28/19 12/04/19 Rx [Dialyvite with Zinc Tablet] Doxazosin [Cardura] 8 mg PO BID #60 tablet 08/31/16 11/28/19 12/04/19 Rx NIFEdipine XL [Procardia Xl] 90 mg PO BID #60 tablet 08/31/16 11/28/19 12/04/19 Rx Sevelamer Carbonate [Renvela] 1,600 mg PO AC #30 tablet 08/31/16 11/28/19 Rx carvediloL [Coreg] 25 mg PO BID #60 tablet 08/31/16 11/28/19 12/04/19 Rx HYDROcodone/APAP 7.5-325 [[place] 1 each PO Q6HR PRN #20 tablet 12/05/19 Unknown Rx 7.5-325 mg TAB] Active Meds: Active Medications Hydrocodone Bitart/Acetaminophen (Hydrocodone/Acetaminophen 7.5-325mg Tab) 1 each PO Q6H PRN PRN Reason: PAIN,MODERATE (4-7) Carvedilol (Carvedilol 25 Mg Tab) 25 mg PO BID TREVER Doxazosin Mesylate (Doxazosin 4 Mg Tab) 8 mg PO BID [facility] Heparin Sodium (Porcine) (Heparin 10,000 Units/10 Ml Vial) 3,000 unit IV XIMENA PRN PRN Reason: hemodialysis Sodium Chloride (Nacl 0.9%) 100 mls @ 999 mls/hr IV XIMENA PRN PRN Reason: Hypotension Nifedipine (Nifedipine Xl 90 Mg Tab) 90 mg PO BID TREVER Sevelamer Carbonate (Sevelamer Carbonate 800 Mg Tab) 1,600 mg PO AC TREVER Review of Systems Constitutional: no weight loss, no fever, no chills, no weakness Cardiovascular: shortness of breath, dyspnea on exertion, high blood pressure, no chest pain, no edema, no syncope, no lightheadedness, no leg edema Respiratory: cough, no shortness of breath, no dyspnea on exertion Gastrointestinal: no abdominal pain, no nausea, no vomiting, no diarrhea, no melena Genitourinary Male: no dysuria, no hematuria Integumentary: no rash Neurological: no convulsions, no aphasia, no change in speech, no change in mentation, no confusion Exam - Vital Signs Vital signs: Vital Signs Pulse Ox 100 07/05/20 05:04 Results - Lab Results 07/05/20 05:19 07/05/20 05:19 Most recent lab results Calcium 9.5 mg/dL (8.4-10.2) 07/05/20 05:19 Assessment and Plan 1. ESRD (end stage renal disease) on dialysis: On maintenance hemodialysis, MWF schedule. Last outpatient HD 07/03. Hemodialysis: 07/05 (UF only) 2. FEN: Volume overload, s/p UF today. Advised to limit fluid intake. Monitor lytes and volume status. 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 3. Hypertension: Monitor BP. Subjective: Patient was seen and examined at the bedside. Examination: General appearance: well-developed, appears stated age, no distress HEENT: ATNC, ROMEO Neck: Trachea midline Respiratory: bibasal rales heard Cardiology: regular, S1S2, no murmur Abdomen: soft, not tender, BS heard Integumentary: warm, dry, no obvious rash Neurologic: AO, able to move all 4 extremities, conversing Ext: no edema noted Hemodialysis catheter: L FA AVF
[2020-07-05 13:21] LABS: Hepatitis B Surface Antigen Non-Reactive (Negative)
[2020-07-05 13:49] LABS: Hepatitis C Virus Antibody Non-Reactive (NonReactive)
[2020-07-05] MEDS: carvediloL 25 MG TAB PO SCH ×2 (14:55→21:38)
[2020-07-05] MEDS: DOXAZOSIN 4 MG TAB PO SCH ×2 (14:55→21:38)
[2020-07-05] MEDS: NIFEdipine XL 90 MG TAB PO SCH ×2 (14:55→21:39)
[2020-07-05] MEDS: SEVELAMER CARBONATE 800 MG TAB PO SCH (17:07)
[2020-07-05] MEDS ORDERED: hydrALAZINE 20 MG/1 ML INJ IV PRN (18:11)
[2020-07-05] MEDS ORDERED: hydrALAZINE 20 MG/1 ML INJ IV ONE (18:11)
[2020-07-05] MEDS: hydrALAZINE 25 MG TAB PO SCH (21:37)
[2020-07-06] MEDS: hydrALAZINE 25 MG TAB PO SCH ×2 (05:30→14:11)
[2020-07-06 06:05] LABS: Calcium 9.5 mg/dL (8.4-10.2)
[2020-07-06] MEDS: SEVELAMER CARBONATE 800 MG TAB PO SCH ×4 (08:50→16:59)
--- NOTE | 2020-07-06 09:39 | Progress Note ---
Assessment and Plan 1. ESRD (end stage renal disease) on dialysis: On maintenance hemodialysis, MWF schedule. Last outpatient HD 07/03. Hemodialysis: 07/05 (UF only), 07/06. 2. FEN: Volume overload, UF with HD. Improved. Off O2. Advised to limit fluid intake. Monitor lytes and volume status. Patient was advised to d/w his outpatient dialysis MD/RN to re-assess his DW. 3. Hypertension: Monitor BP. Subjective: Patient was seen and examined at the bedside. Examination: General appearance: well-developed, appears stated age, no distress HEENT: ATNC, ROMEO Neck: Trachea midline Respiratory: ctab Cardiology: regular, S1S2, no murmur Abdomen: soft, not tender, BS heard Integumentary: warm, dry, no obvious rash Neurologic: AO, able to move all 4 extremities, conversing Ext: no edema noted Hemodialysis catheter: R FA AVF Subjective Date of service: 07/06/20 Objective - Vital Signs Vital signs: Vital Signs - 12hr 07/05/20 07/06/20 07/06/20 23:20 01:00 04:44 Temperature 98.1 F 97.8 F Pulse Rate 80 69 84 Respiratory 20 20 Rate Blood Pressure 175/90 163/86 O2 Sat by Pulse 99 99 Oximetry 07/06/20 07/06/20 05:30 08:36 Temperature Pulse Rate 88 Respiratory Rate Blood Pressure 163/86 O2 Sat by Pulse 99 Oximetry - Lab 07/05/20 05:19 07/06/20 05:09 Most recent lab results Calcium 9.5 mg/dL (8.4-10.2) 07/06/20 05:09 Medications & Allergies - Medications Allergies/Adverse Reactions: Allergies lisinopril Allergy (Verified 12/29/18 09:36) Angioedema Home Medications: Home Medications Medication Instructions Recorded Confirmed Last Taken Type B Complex 11/Folic/C/Biot/Zinc 800 each PO DAILY #30 tablet 08/31/16 07/05/20 12/04/19 Rx [Dialyvite with Zinc Tablet] Doxazosin [Cardura] 8 mg PO BID #60 tablet 08/31/16 07/05/20 12/04/19 Rx NIFEdipine XL [Procardia Xl] 90 mg PO BID #60 tablet 06/21/17 04/25/21 09/23/20 Rx Sevelamer Carbonate [Renvela] 1,600 mg PO AC #30 tablet 08/31/16 07/05/20 12/04/19 Rx carvediloL [Coreg] 25 mg PO BID #60 tablet 08/31/16 07/05/20 12/04/19 Rx Active Medications: Generic Name Dose Route Start Last Admin Trade Name Freq PRN Reason Stop Dose Admin Hydrocodone Bitart/Acetaminophen 1 each 07/05/20 11:35 07/05/20 22:53 Hydrocodone/Acetaminophen 7.5-325mg Tab PO 1 each Q6H PRN Administration PAIN,MODERATE (4-7) Carvedilol 25 mg 07/05/20 12:00 07/05/20 21:38 Carvedilol 25 Mg Tab PO 25 mg BID TREVER Administration Doxazosin Mesylate 8 mg 07/05/20 12:00 07/05/20 21:38 Doxazosin 4 Mg Tab PO 8 mg BID TREVER Administration Heparin Sodium (Porcine) 3,000 unit 07/05/20 09:09 Heparin 10,000 Units/10 Ml Vial IV XIMENA PRN hemodialysis Hydralazine HCl 50 mg 07/05/20 22:00 07/06/20 05:30 Hydralazine 25 Mg Tab PO 50 mg Q8HR TREVER Administration Hydralazine HCl 10 mg 07/05/20 18:11 Hydralazine 20 Mg/1 Ml Inj IV Q4HR PRN Hypertension Sodium Chloride 100 mls @ 999 mls/hr 07/05/20 09:09 Nacl 0.9% IV XIMENA PRN Hypotension Nifedipine 90 mg 07/05/20 12:00 07/05/20 21:39 Nifedipine Xl 90 Mg Tab PO 90 mg BID TREVER Administration Sevelamer Carbonate 1,600 mg 07/05/20 16:30 07/06/20 08:50 Sevelamer Carbonate 800 Mg Tab PO 1,600 mg AC TREVER Administration
--- NOTE | 2020-07-06 10:41 | Electrocardiograph Report ---
[facility] Test Date: 2020-07-05 Test Time: 05:31:17 Pat Name: MIGUEL CLOUD Department: Room: A475 1 Gender: M Factory Assembler: BRANDON : 1965 Requested By: CAMERON FAULKNER Order Number: [id number] Reading MD: Mookie Lwa Measurements Intervals [place] Rate: 73 P: 54 ND: 200 QRS: -9 QRSD: 125 T: 119 QT: 470 QTc: 517 Interpretive Statements Sinus rhythm Left atrial enlargement IVCD, No previous ECG available for comparison Electronically Signed On 07-06-2020 10:40:40 EDT by Mookie Law
[2020-07-06] MEDS: DOXAZOSIN 4 MG TAB PO SCH (14:09)
[2020-07-06] MEDS: NIFEdipine XL 90 MG TAB PO SCH (14:10)
[2020-07-06] MEDS: carvediloL 25 MG TAB PO SCH (14:10)
[2020-07-06] MEDS ORDERED: hydrALAZINE 20 MG/1 ML INJ IV SCH (16:00)
--- NOTE | 2020-07-06 16:39 | Discharge Summary ---
Providers - Providers Date of Admission: 07/05/20 08:15 Date of discharge: 07/06/20 Attending physician: JOSUE MOCK 07/05/20 08:07 Consult to Physician [CONS] Stat Comment: Consulting Provider: AMADOR ALMENDAREZ Physician Instructions: Reason For Exam: End-stage renal disease, volume overload. Primary care physician: WATERSHED ENGINEER Hospitalization Reason for admission: Worsening shortness of breath, fluid overload, uncontrolled blood pressures Condition: Stable Pertinent studies: Chest x-ray/fluid overload/congestive heart failure Procedures: HD per schedule Hospital course: Fluid overload, respiratory distress, uncontrolled blood pressure 54-year-old -[place] male patient with significant past medical history of hypertension end-stage renal disease on hemodialysis MWF GERD presented to the emergency room with worsening shortness of breath, fluid overload Missed his blood pressure medications last night and was noncompliant with renal diet. Patient complains of worsening shortness of breath and cough. Initial evaluation in the emergency room is consistent with hypertensive emergency with blood pressures of 208/110, and pulmonary edema on chest x-ray, nephrology evaluated the patient, patient scheduled for emergency hemodialysis Patient denies any chest pain, no nausea vomiting or abdominal pain evaluated by nephrology, received hemodialysis per schedule Patient was treated with multiple antihypertensives, with mild improvement, today patient is comfortable no new complaints Vital signs noted, blood pressure still moderate control, hemodynamically and clinically stable at discharge Counseled the patient to comply with medications diet and follow-up visit Verbalized understanding, stable at discharge Discharge diagnosis --Fluid overload; Due to ESRD Hemodialysis per schedule Patient received hemodialysis yesterday as well as today Cleared by nephrology for discharge --Pulmonary edema: on chest x-ray Secondary to fluid overload Noncompliance with diet symptoms resolved after dialysis --End-stage renal disease on hemodialysis MWF HD per schedule, follow nephrology per schedule --Elevated BNP> 30,000; due to fluid overload Due to ESRD, mild improvement after HD --Hypertensive emergency; present on admission Mild improvement, continue home antihypertensives Patient's blood pressures are moderate control Patient strongly advised to comply with medications diet and follow-up visits --Noncompliance; strongly advised to comply with dialysis Diet, medications and follow-up visits Verbalized understanding --DVT prophylaxis; Heparin renal dose Patient may be discharged home if blood pressures are 170 systolic and below . Stable at discharge Disposition: DC-01 TO HOME OR SELFCARE Final Discharge Diagnosis (Prints w/discharge instructions): Fluid overload. Pulmonary edema. ESRD on hemodialysis MWF. Hypertensive emergency improved. Medical noncompliance patient counseled. Elevated BNP more than 30,000/due to fluid overload Time spent for discharge: 35 min Core Measure Documentation - Palliative Care Palliative Care/ Comfort Measures: Not Applicable - Core Measures Any of the following diagnoses?: none Exam - Constitutional Vitals: Temp Pulse Resp BP Pulse Ox 98.4 F 64 18 198/91 99 07/06/20 13:10 07/06/20 14:11 07/06/20 13:10 07/06/20 14:11 07/06/20 08:36 General appearance: Present: no acute distress, well-nourished - EENT Eyes: Present: PERRL, EOM intact - Neck Neck: Present: supple, normal ROM - Respiratory Respiratory effort: normal Respiratory: bilateral: diminished, negative: rales, rhonchi, wheezing - Cardiovascular Rhythm: regular Heart Sounds: Present: S1 & S2 - Extremities Extremities: no ischemia, No edema - Abdominal General gastrointestinal: Present: soft, non-tender, non-distended, normal bowel sounds - Integumentary Integumentary: Present: clear, warm - Musculoskeletal Musculoskeletal: strength equal bilaterally, generalized weakness - Psychiatric Psychiatric: appropriate mood/affect, cooperative - Neurologic Neurologic: moves all extremities Plan Activity: advance as tolerated, fall precautions Diet: renal Additional Instructions: Advised to comply with diet, medications, hemodialysis, and follow-up visits. If you have worsening symptoms, contact MD or go to emergency room. Follow renal and HD per schedule Follow up with: PRIMARY MD SANDIE [Primary Care Provider] - 3-5 Days AMADOR ALMENDAREZ MD [Staff Physician] - 7 Days Prescriptions: Hydralazine HCl 50 mg PO TID #90 tablet
[2020-07-06 17:49] VITALS: BP 178/87
--- NOTE | 2020-07-09 10:26 | Electrocardiograph Report ---
[facility] Test Date: 2020-07-05 Test Time: 07:39:04 Pat Name: MIGUEL CLOUD Department: Room: A475 1 Gender: M Web Pressman: REBECCA : 1965 Requested By: MATEO FERGUSON Order Number: [id number] Reading MD: Maribel Riley Measurements Intervals [place] Rate: 63 P: 79 NM: 193 QRS: 4 QRSD: 124 T: 130 QT: 476 QTc: 487 Interpretive Statements Normal sinus rhythm Probable left atrial enlargement LVH with IVCD and secondary repol abnrm Compared to ECG 07/05/2020 05:31:17 Electronically Signed On 07-09-2020 10:26:00 EDT by Maribel Riley
== END 2020-07-06 21:44 | disposition home or self-care (01) ==
LOC: ED 05:00 → 4A 08:15 → INTOOBSV 08:15
PROVIDERS: ADMIT Internal Medicine; ATTEND Internal Medicine
DX: I16.1 Hypertensive emergency (principal); E87.70 Fluid overload, unspecified; I12.0 Hypertensive chronic kidney disease with stage 5 chronic kidney disease or end stage renal disease; N18.6 End stage renal disease; K21.9 Gastro-esophageal reflux disease without esophagitis; J81.1 Chronic pulmonary edema; R06.03 Acute respiratory distress; N40.0 Benign prostatic hyperplasia without lower urinary tract symptoms; M19.90 Unspecified osteoarthritis, unspecified site; Z91.19 Patient's noncompliance with other medical treatment and regimen; Z99.2 Dependence on renal dialysis; Z98.890 Other specified postprocedural states; Z79.899 Other long term (current) drug therapy
CPT/HCPCS: 36415; 71045; 80048; 80074; 83880; 85025; 85610; 93005; 96374; 96376; 99291; G0257; G0378; J0360

== ENCOUNTER 2021-10-03 11:06 | Emergency (ER) | payer MEDICARE ==
[2021-10-03] MEDS ORDERED: ASPIRIN 325 MG TAB PO ONE (11:39)
--- NOTE | 2021-10-03 12:14 | XRay Report ---
CHEST 2 VIEWS INDICATION / CLINICAL INFORMATION: SOB. COMPARISON: 07/05/2020 FINDINGS: SUPPORT DEVICES: None. HEART / MEDIASTINUM: Cardiomegaly with pulmonary venous hypertension LUNGS / PLEURA: Tiny left pleural effusion and mild interstitial prominence, improved since prior isha dy No pneumothorax. ADDITIONAL FINDINGS: No significant additional findings. IMPRESSION: 1. Mild CHF Signer Name: Osorio Lopez MD Signed: 10/03/2021 12:09 PM Workstation Name: [id number]
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
[2021-10-03] MEDS ORDERED: cloNIDine 0.1 MG TAB PO ONE (17:01)
--- NOTE | 2021-10-03 18:12 | Cat Scan Report ---
NONENHANCED CT SCAN OF THE HEAD: INDICATION / CLINICAL INFORMATION: 55 years Male; dizziness x 2 weeks, esrd on h/d. TECHNIQUE: Routine CT head without contrast. All CT scans at this location are performed using CT dos e reduction for ALARA by means of automated exposure control. COMPARISON: None. FINDINGS: BRAIN / INTRACRANIAL CONTENTS: No acute hemorrhage, mass effect, midline shift, hydrocephalus, or acu te, large territorial infarct. No chronic infarct or focal atrophy. Normal brain volume and ventricul ar/sulcal size for age. 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 ORBITS: Focal bony defect defect along the medial wall of left orbit; probably from old trauma: Left superior oblique muscle is extending through the defect; evaluate for entrapment SINUSES / MASTOIDS: No significant abnormality of the visualized paranasal sinuses or mastoid air chemo ls. ADDITIONAL FINDINGS: The condylar heads are not the level of articular tubercle of the glenoid fossa of TMJ IMPRESSION: No acute focal parenchymal lesion in the brain Signer Name: Jossy Quiroz MD Signed: 10/03/2021 6:07 PM Workstation Name: [id number]
[2021-10-03 19:04] LABS: Basophils % (Auto) 0.7 % (0.0-1.8); Eosinophils # (Auto) 0.1 K/mm3 (0.0-0.4); Eosinophils % (Auto) 1.8 % (0.0-4.3); Hemoglobin 9.6 gm/dl (11.8-15.2); Lymphocytes % (Auto) 23.1 % (13.4-35.0); Mean Corpuscular HGB Conc 33 % (32-34); Mean Corpuscular Volume 92 fl (84-94); Monocytes # (Auto) 0.4 K/mm3 (0.0-0.8); Monocytes % (Auto) 8.2 % (0.0-7.3); Platelet Count 153 K/mm3 (140-440); Red Blood Count 3.15 M/mm3 (3.65-5.03); Red Cell Distribution Width 17.2 % (13.2-15.2)
[2021-10-03 19:15] LABS: INR 0.94 (0.87-1.13)
[2021-10-03 19:16] LABS: Partial Thromboplastin Time 30.9 Sec. (24.2-36.6)
[2021-10-03 19:26] LABS: Albumin 3.9 g/dL (3.9-5); Blood Urea Nitrogen 42 mg/dL (9-20); Calcium 8.8 mg/dL (8.4-10.2); Hemolysis Index 2
[2021-10-03 19:30] LABS: Alanine Aminotransferase < 5 units/L (7-56); BUN/Creatinine Ratio 4
[2021-10-03 19:41] LABS: Chol/HDL Ratio 1.97 %; HDL Cholesterol 87 mg/dL (40-59); LDL Cholesterol,Direct 79 mg/dL (50-130)
[2021-10-04 00:03] VITALS: BP 203/83
--- NOTE | 2021-10-04 10:03 | Electrocardiograph Report ---
[facility] Test Date: 2021-10-03 Test Time: 11:33:13 Pat Name: MIGUEL CLOUD Department: Room: Gender: M Store [employer]: OMAR : 1965 Requested By: ED DOC Order Number: [id number] Reading MD: Sagar Girard Measurements Intervals [place] Rate: 66 P: 3 [place]: 176 QRS: 20 QRSD: 116 T: 201 QT: 459 QTc: 482 Interpretive Statements Sinus rhythm LVH with secondary repolarization abnormality Anterior ST elevation, probably due to LVH Compared to ECG 07/05/2020 07:39:04 ST (T wave) deviation now present Intraventricular conduction delay no longer present Electronically Signed On 10-04-2021 10:03:16 EDT by Sagar Girard
== END 2021-10-04 00:01 | disposition home or self-care (01) ==
LOC: ED 11:06
DX: I10 Essential (primary) hypertension (principal); R42 Dizziness and giddiness; K21.9 Gastro-esophageal reflux disease without esophagitis; M19.90 Unspecified osteoarthritis, unspecified site; N28.9 Disorder of kidney and ureter, unspecified; Z98.890 Other specified postprocedural states; Z79.899 Other long term (current) drug therapy
CPT/HCPCS: 36415; 70450; 71046; 80053; 80061; 84484; 85025; 85610; 85730; 93005; 99284